=== PATIENT | female | born 1940 | race Caucasian/White ===

== ENCOUNTER → 2016-03-17 | Outpatient (CLI) | payer OTHER, BC ==
[2016-03-17 13:21] LABS: INR 1.2 (0.9-1.1); PARTIAL THROMBOPLASTIN RATIO 1.3; PROTHROMBIN TIME (PATIENT) 12.6 SECONDS (9.0-12.0)
[2016-03-17 13:24] LABS: BASO ABS # 0.82 K/uL (0-0.2); BASOPHIL % 5.2 %; COMPLETE YES; HEMATOCRIT 34.3 % (37-47); LYMPH ABS # 1.22 K/uL (1.2-3.4); LYMPHOCYTE % 7.8 %; MEAN CORPUSCULAR HEMOGLOBIN 31.2 pg (25-34); MEAN CORPUSCULAR HGB CONC 33.2 g/dl (32-36); MEAN PLATELET VOLUME 9.8 fL (7.4-10.4); NEUTROPHILS % 84.4 %; PLATELET COUNT 985 K/uL (130-400); PLT ESTIMATE INCREASED; RED BLOOD COUNT 3.65 M/uL (4.2-5.4); WHITE BLOOD COUNT 15.69 K/uL (4.8-10.8)
== END | disposition home or self-care (01) ==
LOC: C.LABMFLN 09:10
PROVIDERS: ATTEND Family Medicine
DX: C93.10 Chronic myelomonocytic leukemia not having achieved remission (principal); I48.0 Paroxysmal atrial fibrillation; S00.83XD Contusion of other part of head, subsequent encounter; X58.XXXD Exposure to other specified factors, subsequent encounter

== ENCOUNTER → 2016-12-15 | Outpatient (CLI) | payer OTHER, BC ==
[2016-12-15 13:48] LABS: CHOLESTEROL/HDL RATIO 2.5
[2016-12-15 14:26] LABS: ESTIMATED AVERAGE GLUCOSE 120 mg/dl; HA1C FLAG Normal (Normal)
== END | disposition home or self-care (01) ==
LOC: C.LABMFLN 09:35
PROVIDERS: ATTEND Family Medicine
DX: E78.01 Familial hypercholesterolemia (principal); R73.09 Other abnormal glucose; I42.9 Cardiomyopathy, unspecified; I10 Essential (primary) hypertension; D64.9 Anemia, unspecified; E53.8 Deficiency of other specified B group vitamins

== ENCOUNTER → 2017-04-19 | Outpatient (CLI) | payer OTHER, BC ==
[~2017-04-19] MED LIST: ACET-1256 PO; ATOR10TA82 PO; CYAN500S5 SL; DILT-119 PO; EDOX1TAB2 PO; FRS/40 PO; METO200T32 PO; POLYSOL4 OP; POTA10CA28 PO; [UNRECOGNIZED DRUG - CODE] PO
[2017-04-19 17:56] LABS: BASO % 0.2 %; BASO ABS # 0.02 K/uL (0-0.2); EOS % 0.9 %; EOS ABS # 0.11 K/uL (0-0.5); HEMATOCRIT 33.7 % (37-47); HEMOGLOBIN 10.6 g/dL (12.0-16.0); IG# 0.02 K/uL (0.00-0.02); LYMPH % 7.9 %; LYMPH ABS # 0.92 K/uL (1.2-3.4); MEAN CORPUSCULAR HEMOGLOBIN 27.7 pg (25-34); MEAN CORPUSCULAR HGB CONC 31.5 g/dl (32-36); MEAN PLATELET VOLUME 11.4 fL (7.4-10.4); MONO % 9.6 %; MONO ABS # 1.11 K/uL (0.11-0.59); NEUT % 81.2 %; NEUT ABS # 9.41 K/uL (1.4-6.5); PLATELET COUNT 268 K/uL (130-400); RED CELL DISTRIBUTION WIDTH SD 51.1 fL (36.4-46.3); WHITE BLOOD COUNT 11.59 K/uL (4.8-10.8)
[2017-04-19 19:05] LABS: BLOOD UREA NITROGEN 32 mg/dl (7-18); CARBON DIOXIDE 24 mmol/L (21-32); CREATININE 1.61 mg/dl (0.60-1.20); GLUCOSE 111 mg/dl (70-99); POTASSIUM 4.6 mmol/L (3.5-5.1); SODIUM 141 mmol/L (136-145)
[2017-04-19 19:10] LABS: TRANSFERRIN 232 mg/dl (200-360)
== END | disposition home or self-care (01) ==
LOC: C.LABMFLN 15:43
PROVIDERS: ATTEND Family Medicine
DX: I10 Essential (primary) hypertension (principal); C93.10 Chronic myelomonocytic leukemia not having achieved remission; R06.09 Other forms of dyspnea; I48.91 Unspecified atrial fibrillation; E53.8 Deficiency of other specified B group vitamins

== ENCOUNTER 2017-04-24 11:43 | Inpatient (IN) | payer OTHER, BC ==
[~2017-04-24] VITALS: Ht 154.9 cm; Wt 91.9 kg
--- NOTE | 2017-04-24 12:19 | EMERGENCY ROOM VISIT NOTE ---
History Report prepared by Abdirahman: Sandor Flores Under the Supervision of: Dr. Alberto Bell M.D. First contact with patient: 12:04 Chief Complaint: SHORTNESS OF BREATH Stated Complaint: AFIB/ SOB Nursing Triage Summary: Pt presents with and daughter who report pt has been in a fib x 4 weeks. Scheduled for cardioversion with Dr. Baltazar on Mon. Denies dizziness/lightheaded or cp. Pt reports SOB. Pt seen at [facility] last week. states pt had a "pulmonary test" on . Pt reports "a little bit" of cough of yellow. History of Present Illness The patient is a 76 year old female who presents to the Emergency Room with complaints of worsening shortness of breath this past week. Per the patient's daughter and , the patient was diagnosed with atrial fibrillation 2 years ago, but has been in it again for the past month. The patient was hospitalized in the [facility] recently, and was there for a week. She was discharged over a week ago, and the patient was on oxygen there. She was also on a Diltiazem drip there as well as a BiPAP. The patient was noted to be okay when she left, but over the past week, her shortness of breath has been steadily worsening. Yesterday, she was even short of breath with just sitting, but when the patient is laying down, her breathing is okay. The patient has not been moving much ever since she has been home. She was seen by her band lining bander (Dr. Mckenzie) a few days after being discharged, and was scheduled for a cardioversion for 2 days from now. The patient states that her breathing has gotten to the point where she needed to come here even before the cardioversion. She adds that she has CML, but has no heart failure related to that. The patient denies any chest pain, abdominal pain, cough, congestion, fevers, chills, body aches, urinary symptoms, or dizziness. She notes that she has not had any notable palpitations. She notes that she was recently put on a blood thinner. The patient has no history of heart attacks or blood clots in her legs or lungs. Per the patient's daughter, the patient's kidney function "was being questioned" while she was in the [facility]. Source of History: patient, family Onset: This past week Position: other (global) Symptom Intensity: got to the point where could not wait for cardioversion Quality: other (shortness of breath) Timing: worsening Modifying Factors (Worsening): exertion Modifying Factors (Relieving): rest Associated Symptoms: No fevers, No cough (or congestion), No chest pain, No abdominal pain, No urinary symptoms Note: Associated symptoms: Denies dizziness or body aches. Review of Systems See HPI for pertinent positives and negatives. A total of ten systems were reviewed and were otherwise negative. Past Medical & Surgical Medical Problems: (1) Acute Diastolic CHF (2) Afib (3) Atrial Fibrillation (4) CML (chronic myelocytic leukemia) Family History Family history omitted secondary to patient's advanced age. Social History Smoking Status: Never Smoker Alcohol Use: none Marital Status: Housing Status: lives with family Occupation Status: retired Current/Historical Medications Scheduled Acetaminophen (Tylenol), 1,000 MG PO AMHS Atorvastatin (Lipitor), 10 MG PO QPM Bosutinib (Bosulif), 300 MG PO HS Cyanocobalamin (Vitamin B-12), 500 MCG SL DAILY Diltiazem Hcl Ext Rel (Tiazac), 360 MG PO QAM Edoxaban Tosylate (Savaysa), 30 MG PO DAILY@1800 Furosemide (Lasix), 40 MG PO QAM Metoprolol Succinate (Toprolxl (Toprol-Xl), 200 MG PO QAM Polyethylene Glycol-Propylene (Systane), 1 DROPS OP DAILY Potassium Chloride (Micro-K Ext Rel), 10 MEQ PO QAM Allergies Coded Allergies: No Known Allergies (Unverified , 04/24/17) Physical Exam Vital Signs Date Time Temp Pulse Resp B/P (MAP) Pulse Ox O2 Delivery O2 Flow Rate FiO2 04/24/17 14:54 67 16 132/78 96 Nasal Cannula 3.0 04/24/17 13:06 72 04/24/17 12:08 93 Room Air 04/24/17 12:00 36.3 89 20 135/78 96 Room Air Physical Exam GENERAL: Awake, alert, uncomfortable-appearing, mildly dyspneic, no acute distress. HENT: Normocephalic, atraumatic. Dry mucous membranes. EYES: Normal conjunctiva. Sclera non-icteric. NECK: Supple. No nuchal rigidity. FROM. No JVD. RESPIRATORY: Diminished breath sounds at the bases, otherwise clear. CARDIAC: Regular rate, normal rhythm. Extremities warm and well perfused. Pulses equal. ABDOMEN: Obese abdomen, soft. No tenderness to palpation. No rebound or guarding. No masses. RECTAL: Deferred. MUSCULOSKELETAL: Chest examination reveals no tenderness. The back is symmetrical on inspection without obvious abnormality. There is no CVA tenderness to palpation. No joint edema. LOWER EXTREMITIES: Calves are equal size bilaterally and non-tender. Scant lower extremity edema. No discoloration. NEURO: Normal sensorium. No sensory or motor deficits noted. SKIN: No rash or jaundice noted. Medical Decision & Procedures ER Provider Diagnostic Interpretation: X-ray: Per my interpretation, radiologist review. CHEST ONE VIEW PORTABLE CLINICAL HISTORY: 76 years-old Female presenting with CHEST PAIN. TECHNIQUE: Portable upright AP view of the chest was obtained. COMPARISON: None. FINDINGS: Atherosclerosis of aortic arch. Cardiac silhouette enlarged. Left basilar opacity with small to moderate left pleural effusion. No pneumothorax. Small right pleural effusion. Osseous structures normal. Upper abdomen normal. IMPRESSION: 1. Cardiomegaly. No yinka pulmonary edema. 2. Left basilar opacity likely extensive atelectasis in the setting of small to moderate left pleural effusion. Underlying infection cannot be excluded. 3. Small right pleural effusion. Electronically signed by: Viral Villalta M.D. 04/24/2017 12:55 PM Dictated Date/Time: 04/24/2017 12:54 PM CHEST 2 VIEWS ROUTINE CLINICAL HISTORY: 76 years-old Female presenting with dyspnea. TECHNIQUE: PA and lateral views of the chest were obtained. COMPARISON: 04/24/2017 at 12:40 PM. FINDINGS: Atherosclerosis of aortic arch. Cardiac silhouette enlarged. Bibasilar opacities greater on the left. Small right and small to moderate left pleural effusions. No pneumothorax. Osseous structures normal. Upper abdomen normal. IMPRESSION: 1. Persistent small right and [id number] left pleural effusions with extensive basilar atelectasis greater on the left. 2. Cardiomegaly. Electronically signed by: Viral Villalta M.D. 04/24/2017 2:49 PM Dictated Date/Time: 04/24/2017 2:45 PM Laboratory Results 04/24/17 12:15 Red Blood Count 3.87, Mean Corpuscular Volume 89.4, Mean Corpuscular Hemoglobin 27.6, Mean Corpuscular Hemoglobin Concent 30.9, Mean Platelet Volume 10.6, Neutrophils (%) (Auto) 85.1, Lymphocytes (%) (Auto) 6.2, Monocytes (%) (Auto) 7.8, Eosinophils (%) (Auto) 0.6, Basophils (%) (Auto) 0.1, Neutrophils # (Auto) 10.77, Lymphocytes # (Auto) 0.79, Monocytes # (Auto) 0.99, Eosinophils # (Auto) 0.07, Basophils # (Auto) 0.01 04/24/17 12:15 Test 04/24/17 12:15 04/24/17 13:01 White Blood Count 12.65 K/uL (4.8-10.8) Red Blood Count 3.87 M/uL (4.2-5.4) Hemoglobin 10.7 g/dL (12.0-16.0) Hematocrit 34.6 % (37-47) Mean Corpuscular Volume 89.4 fL (80-100) Mean Corpuscular Hemoglobin 27.6 pg (25-34) Mean Corpuscular Hemoglobin Concent 30.9 g/dl (32-36) Platelet Count 274 K/uL (130-400) Mean Platelet Volume 10.6 fL (7.4-10.4) Neutrophils (%) (Auto) 85.1 % Lymphocytes (%) (Auto) 6.2 % Monocytes (%) (Auto) 7.8 % Eosinophils (%) (Auto) 0.6 % Basophils (%) (Auto) 0.1 % Neutrophils # (Auto) 10.77 K/uL (1.4-6.5) Lymphocytes # (Auto) 0.79 K/uL (1.2-3.4) Monocytes # (Auto) 0.99 K/uL (0.11-0.59) Eosinophils # (Auto) 0.07 K/uL (0-0.5) Basophils # (Auto) 0.01 K/uL (0-0.2) RDW Standard Deviation 53.1 fL (36.4-46.3) RDW Coefficient of Variation 16.2 % (11.5-14.5) Immature Granulocyte % (Auto) 0.2 % Immature Granulocyte # (Auto) 0.02 K/uL (0.00-0.02) Prothrombin Time 11.7 SECONDS (9.0-12.0) Prothromb Time International Ratio 1.1 (0.9-1.1) Anion Gap 7.0 mmol/L (3-11) Est Creatinine Clear Calc Drug Dose 34.6 ml/min Estimated GFR () 41.9 Estimated GFR (Non- 36.2 BUN/Creatinine Ratio 17.0 (10-20) Calcium Level 9.0 mg/dl (8.5-10.1) Total Bilirubin 0.3 mg/dl (0.2-1) Direct Bilirubin 0.1 mg/dl (0-0.2) Aspartate Amino Transf (AST/SGOT) 17 U/L (15-37) Alanine Aminotransferase (ALT/SGPT) 27 U/L (12-78) Alkaline Phosphatase 127 U/L (45-117) Pro-B-Type Natriuretic Peptide 1635 pg/ml (0-1800) Total Protein 7.5 gm/dl (6.4-8.2) Albumin 3.5 gm/dl (3.4-5.0) Lipase 138 U/L (73-393) Procalcitonin < 0.05 ng/ml (0-0.5) Venous Blood pH 7.41 (7.36-7.41) Venous Blood Partial Pressure CO2 42 mmHg (38.0-50.0) Venous Blood Partial Pressure O2 48 mmHg Venous Blood HCO3 26 mmol/L Venous Blood Oxygen Saturation 81.7 % Venous Blood Base Excess 1.2 mEq/L Laboratory results reviewed by me ECG Per My Interpretation Indication: SOB/dyspnea Rate (beats per minute): 112 Rhythm: atrial fibrillation (with RVR) Findings: LBBB, no acute ischemic change, other (no Sgarbossa's criteria) Comparison ECG Date: no prior available ED Course 1206: The patient was evaluated in room C7. A complete history and physical exam was performed. 1232: I did an bedside ultrasound on the patient, which revealed mild to moderate non-circumferential pericardial effusion collecting inferiorly with no diastolic ventricular collapse. Normal to mildly reduced EF. 1400: Upon reexamination, the patient was resting. I discussed the test results and treatment plan with her. She expressed understanding and agreement with the treatment plan. The patient will be evaluated for further management. 1406: I discussed the patient with Dr. Rubio - [facility] hospitalist - he will evaluate the patient for further treatment. 1409: I discussed the patient with Dr. Noriega - [facility] cardiology - he agrees that given no tamponade physiology and stable vital signs, no need for emergent echo at this time. Medical Decision I reviewed the patient's past medical history, medications, and the nursing notes as described above. Differential diagnosis: Etiologies such as infections, reactive airway disease, pneumonia, pneumothorax , COPD, CHF, cardiac ischemia, pulmonary embolism, musculoskeletal, gastrointestinal, as well as others were entertained. The patient is a 76-year-old woman with a past medical history of CLL on Bosutinib and atrial fibrillation currently on Edoxaban (switched from Xarelto) who presents emergency department with persistent worsening dyspnea after being admitted to the hospital for A. fib with RVR now scheduled ablation on Wednesday with Dr. Mckenzie. On arrival the patient is uncomfortable mildly dyspneic but no acute distress, afebrile with stable vital signs. EKG demonstrates left bundle branch block with A. fib with a rate of 112. No acute ischemia, i.e. no Sgarbossa criteria. No prior EKGs for comparison. WBC is 12 slightly elevated from 10 upon the patient's discharge. Troponin negative. BNP 1600s. Chest x- ray with bilateral pleural effusions. PA lateral ordered and pending as well as procalcitonin to further characterize the possibility of pneumonia. Bedside echo demonstrates a mild pericardial effusion that is not circumferential, collects apically. There is no diastolic ventricular collapse. Upon review of the patient's [facility] discharge summary this appears possibly to be similar, which describes her echo as no significant pericardial effusion. Given the patient's otherwise stable objective findings at this time there is unclear etiology to the patient's significant dyspnea. Possibly multifactorial related to the patient's A. fib which is rate controlled, her diastolic heart failure, her CML and likely associated pericardial effusion. Thus, will admit the patient for further management. Case was discussed with Dr. Rubio, [facility] hospitalist to admit the patient for further management. I additionally discussed the case with Dr. Ruiz, cardiology on behalf of admitting team who agrees that given there is no tamponade physiology, the patient is hemodynamically stable there is no indication for emergent formal echo at this time. Dr. Rubio was updated. *Review of the patient's [facility] discharge summary documents that the patient was admitted for atrial fibrillation with RVR on a diltiazem drip. She was followed by cardiology and oncology for her CML and she was continued on her Bosutinib. Her ejection fraction was 52% on her echo and also demonstrated grade 2 diastolic dysfunction. She was started on Xarelto given her chads vascular 5. Her Lasix was resumed upon discharge after her creatinine improved from 1.8-1.5. Medication Reconcilliation Current Medication List: was personally reviewed by me Blood Pressure Screening Patient's blood pressure: Normal blood pressure Consults Time Called: 1400 Consulting Physician: Dr. Joanne SHAW hospitalist Returned Call: 1406 I discussed the patient with Dr. Joanne SHAW hospitalist - he will evaluate the patient for further treatment. Additional Consults: Time Called: 1406 Consulted Physician: Dr. Leann Boland [facility] cardiology Returned Call: [phone] Additional Comments: I discussed the patient with Dr. Leann Cheney [facility] cardiology - he agrees that given no tamponade physiology and stable vital signs, no need for emergent echo at this time. Impression Primary Impression: Dyspnea Additional Impressions: Pericardial effusion CKD (chronic kidney disease) Atrial Fibrillation Scribe Attestation The scribe's documentation has been prepared under my direction and personally reviewed by me in its entirety. I confirm that the note above accurately reflects all work, treatment, procedures, and medical decision making performed by me. Departure Information Dispostion Being Evaluated By Hospitalist Referrals Lopez Dahl M.D. (PCP) Patient Instructions My [facility] Problem Qualifiers Primary Impression: Dyspnea Dyspnea type: dyspnea on exertion Qualified Codes: R06.09 - Other forms of dyspnea Additional Impressions: CKD (chronic kidney disease) Chronic kidney disease stage: unspecified stage Qualified Codes: N18.9 - Chronic kidney disease, unspecified
[2017-04-24 12:27] LABS: BASO % 0.1 %; BASO ABS # 0.01 K/uL (0-0.2); EOS % 0.6 %; EOS ABS # 0.07 K/uL (0-0.5); HEMATOCRIT 34.6 % (37-47); HEMOGLOBIN 10.7 g/dL (12.0-16.0); IG# 0.02 K/uL (0.00-0.02); LYMPH % 6.2 %; LYMPH ABS # 0.79 K/uL (1.2-3.4); MEAN CELL VOLUME 89.4 fL (80-100); MEAN CORPUSCULAR HEMOGLOBIN 27.6 pg (25-34); MEAN CORPUSCULAR HGB CONC 30.9 g/dl (32-36); MEAN PLATELET VOLUME 10.6 fL (7.4-10.4); MONO % 7.8 %; MONO ABS # 0.99 K/uL (0.11-0.59); NEUT % 85.1 %; NEUT ABS # 10.77 K/uL (1.4-6.5); PLATELET COUNT 274 K/uL (130-400); RED CELL DISTRIBUTION WIDTH CV 16.2 % (11.5-14.5); RED CELL DISTRIBUTION WIDTH SD 53.1 fL (36.4-46.3); WHITE BLOOD COUNT 12.65 K/uL (4.8-10.8)
[2017-04-24 12:35] LABS: INR 1.1 (0.9-1.1)
[2017-04-24] MEDS ORDERED: EDOX1TAB2 PO (12:37)
[2017-04-24] MEDS ORDERED: [UNRECOGNIZED DRUG - CODE] PO (12:37)
[2017-04-24] MEDS ORDERED: ACET-1256 PO (12:37)
[2017-04-24] MEDS ORDERED: CYAN500S5 SL (12:37)
[2017-04-24] MEDS ORDERED: POLYSOL4 OP (12:37)
[2017-04-24] MEDS ORDERED: POTA10CA28 PO (12:37)
[2017-04-24] MEDS ORDERED: METO200T32 PO (12:37)
[2017-04-24] MEDS ORDERED: DILT-119 PO (12:37)
[2017-04-24] MEDS ORDERED: ATOR10TA82 PO (12:37)
[2017-04-24] MEDS ORDERED: FRS/40 PO (12:37)
--- NOTE | 2017-04-24 12:57 | DIAGNOSTIC IMAGING REPORT ---
CHEST ONE VIEW PORTABLE CLINICAL HISTORY: 76 years-old Female presenting with CHEST PAIN. TECHNIQUE: Portable upright AP view of the chest was obtained. COMPARISON: None. FINDINGS: Atherosclerosis of aortic arch. Cardiac silhouette enlarged. Left basilar opacity with small to moderate left pleural effusion. No pneumothorax. Small right pleural effusion. Osseous structures normal. Upper abdomen normal. IMPRESSION: 1. Cardiomegaly. No yinka pulmonary edema. 2. Left basilar opacity likely extensive atelectasis in the setting of small to moderate left pleural effusion. Underlying infection cannot be excluded. 3. Small right pleural effusion. Electronically signed by: Viral Villalta M.D. 04/24/2017 12:55 PM Dictated Date/Time: 04/24/2017 12:54 PM
[2017-04-24 13:01] LABS: ALBUMIN 3.5 gm/dl (3.4-5.0); CREATININE 1.4 mg/dl (0.60-1.20); POTASSIUM 4.3 mmol/L (3.5-5.1)
[2017-04-24 13:06] LABS: TOTAL PROTEIN 7.5 gm/dl (6.4-8.2)
--- NOTE | 2017-04-24 14:50 | DIAGNOSTIC IMAGING REPORT ---
CHEST 2 VIEWS ROUTINE CLINICAL HISTORY: 76 years-old Female presenting with dyspnea. TECHNIQUE: PA and lateral views of the chest were obtained. COMPARISON: 04/24/2017 at 12:40 PM. FINDINGS: Atherosclerosis of aortic arch. Cardiac silhouette enlarged. Bibasilar opacities greater on the left. Small right and small to moderate left pleural effusions. No pneumothorax. Osseous structures normal. Upper abdomen normal. IMPRESSION: 1. Persistent small right and [id number] left pleural effusions with extensive basilar atelectasis greater on the left. 2. Cardiomegaly. Electronically signed by: Viral Villalta M.D. 04/24/2017 2:49 PM Dictated Date/Time: 04/24/2017 2:45 PM
[2017-04-24] MEDS ORDERED: MAGNESIUM HYDROXIDE SUSP 30 ML UDC PO PRN (15:15)
[2017-04-24] MEDS ORDERED: ALUMINUM/MAGNESIUM/SIMETH (MAALOX MAX) 30 ML UDC PO PRN (15:15)
[2017-04-24] MEDS ORDERED: ACETAMINOPHEN 325 MG TAB PO PRN (15:15)
[2017-04-24] MEDS ORDERED: ONDANSETRON INJ 2 MG/ML 2 ML VIAL IV PRN (15:15)
[2017-04-24 15:50] VITALS: O2SAT 95; Ht 154.9 cm; Wt 91.9 kg
--- NOTE | 2017-04-24 15:57 | History and Physical ---
History & Physical Date & Time of Service: Apr 24, 2017 at 15:43 Chief Complaint: Afib/ Sob Primary Care Physician: Lopez Dahl M.D. History of Present Illness Source: patient, family Ms. 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 Patient was recently admitted to [facility] due to acute hypoxic respiratory failure from atrial fibrillation with RVR. She was discharged approximately 1 week ago and since reports progressively becoming more short of breath and fatigued. She reports significant dyspnea on exertion with even minimal activity. She has not been able to ambulate much at home due to this BURTON. She feels like she has at baseline respiratory dhillon while at rest. She denies orthopnea. During assessment, patient had more labored breathing with just leaning forward to auscultate her lungs. Patient was diagnosed with paroxysmal atrial fibrillation in 2015 and underwent successful cardioversion. She reports that she has been out of this rhythm until presentation to [place]. During admission she was successfully rate controlled with her chronic Toprol XL and the addition of diltiazem. However, she has not successfully converted out of atrial fibrillation. She had a follow-up appointment with Dr. Mckenzie who planned for cardioversion on April 26. During this [place] admission, she reports she required supplemental oxygen however was successfully weaned to room air and completed two-step but did not qualify her for home oxygen use. She was initially placed on Xarelto, however her PCP switch this to Savaysa 30 mg daily which she has been compliant with. She denies history of DVT/PE. She reports an associated cough that is largely nonproductive. She states that it is more irritative then anything. She denies fever/chills, body aches, rhinorrhea, sore throat, or sick contacts. She reports obtaining her flu vaccine this year. During her [place] admission, she was diuresed however there was limitations as her kidney function worsened. She is currently on her home dosing of Lasix 40 mg daily now that this has improved. Past Medical/Surgical History 1. CML 2. Paroxysmal Atrial Fibrillation 3. Chronic Anemia 4. Cardiomyopathy 2/2 Cancer Tx (Suspected) 5. Diastolic CHF 6. H/O Breast CA S/P Chemo/XRT/ and S/P Lumpectomy 7. HTN 8. HLD 9. S/P Appendectomy 10. S/P L Salpingectomy 11. S/P YONNY Family History Breast Cancer DAUGHTER, Lung Disease FATHER, Rheumatic Heart Disease MOTHER, Social History Smoking Status: Never Smoker Smokeless Tobacco Use: No Alcohol Use: socially Drug Use: none Marital Status: Housing status: lives with significant other Occupational Status: retired Allergies Coded Allergies: No Known Allergies (Unverified , 04/24/17) Home Medications Scheduled Acetaminophen (Tylenol), 1,000 MG PO AMHS Atorvastatin (Lipitor), 10 MG PO QPM Bosutinib (Bosulif), 300 MG PO HS Cyanocobalamin (Vitamin B-12), 500 MCG SL DAILY Diltiazem Hcl Ext Rel (Tiazac), 360 MG PO QAM Edoxaban Tosylate (Savaysa), 30 MG PO DAILY@1800 Furosemide (Lasix), 40 MG PO QAM Metoprolol Succinate (Toprolxl (Toprol-Xl), 200 MG PO QAM Polyethylene Glycol-Propylene (Systane), 1 DROPS OP DAILY Potassium Chloride (Micro-K Ext Rel), 10 MEQ PO QAM Review of Systems Constitutional: + weakness (generalized), + fatigue, No fever, No chills ENT: No nasal symptoms, No sore throat, No trouble swallowing Respiratory: + cough (weak - minimal), + dyspnea on exertion (with minimal movement), No sputum, No wheezing, No dyspnea at rest Cardiovascular: No chest pain Abdomen: No pain, No nausea, No vomiting, No diarrhea, No constipation Musculoskeletal: No swelling, No calf pain Genitourinary - Female: No dysuria Hematologic / Lymphatic: No abnormal bleeding/bruising Physical Exam Vital Signs Date Time Temp Pulse Resp B/P (MAP) Pulse Ox O2 Delivery O2 Flow Rate FiO2 04/24/17 14:54 67 16 132/78 96 Nasal Cannula 3.0 04/24/17 13:06 72 04/24/17 12:08 93 Room Air 04/24/17 12:00 36.3 89 20 135/78 96 Room Air General Appearance: WD/WN, + mild distress (with simple movement - more labored breathing) Head: normocephalic, atraumatic Eyes: sclerae normal ENT: hearing grossly normal, pharynx normal, + pertinent finding (oral mucosa moist) Neck: supple, no JVD, trachea midline Respiratory/Chest: + respiratory distress (with minimal movement such as leaning forward in bed to assess lungs), + pertinent finding (L lung moctezuma are diminished from bases to approx. mid-lung; R lung diminished at bases - no other adventitious sounds appreciated; generally poor air flow) Cardiovascular: + irregularly irregular Abdomen/GI: normal bowel sounds, non tender, soft Back: normal inspection Extremities/Musculoskelatal: no pedal edema Neurologic/Psych: alert, oriented x 3 Skin: normal color, warm/dry Diagnostics Laboratory Results Results Past 24 Hours Test 04/24/17 12:15 04/24/17 13:01 04/24/17 15:32 Range/Units White Blood Count 12.65 4.8-10.8 K/uL Red Blood Count 3.87 4.2-5.4 M/uL Hemoglobin 10.7 12.0-16.0 g/dL Hematocrit 34.6 37-47 % Mean Corpuscular Volume 89.4 80-100 fL Mean Corpuscular Hemoglobin 27.6 25-34 pg Mean Corpuscular Hemoglobin Concent 30.9 32-36 g/dl Platelet Count 274 130-400 K/uL Mean Platelet Volume 10.6 7.4-10.4 fL Neutrophils (%) (Auto) 85.1 % Lymphocytes (%) (Auto) 6.2 % Monocytes (%) (Auto) 7.8 % Eosinophils (%) (Auto) 0.6 % Basophils (%) (Auto) 0.1 % Neutrophils # (Auto) 10.77 1.4-6.5 K/uL Lymphocytes # (Auto) 0.79 1.2-3.4 K/uL Monocytes # (Auto) 0.99 0.11-0.59 K/uL Eosinophils # (Auto) 0.07 0-0.5 K/uL Basophils # (Auto) 0.01 0-0.2 K/uL RDW Standard Deviation 53.1 36.4-46.3 fL RDW Coefficient of Variation 16.2 11.5-14.5 % Immature Granulocyte % (Auto) 0.2 % Immature Granulocyte # (Auto) 0.02 0.00-0.02 K/uL Prothrombin Time 11.7 9.0-12.0 SECONDS Prothromb Time International Ratio 1.1 0.9-1.1 Sodium Level 143 136-145 mmol/L Potassium Level 4.3 3.5-5.1 mmol/L Chloride Level 112 98-107 mmol/L Carbon Dioxide Level 24 21-32 mmol/L Anion Gap 7.0 3-11 mmol/L Blood Urea Nitrogen 24 7-18 mg/dl Creatinine 1.40 0.60-1.20 mg/dl Est Creatinine Clear Calc Drug Dose 34.6 ml/min Estimated GFR () 41.9 Estimated GFR (Non- 36.2 BUN/Creatinine Ratio 17.0 10-20 Random Glucose 113 70-99 mg/dl Calcium Level 9.0 8.5-10.1 mg/dl Total Bilirubin 0.3 0.2-1 mg/dl Direct Bilirubin 0.1 0-0.2 mg/dl Aspartate Amino Transf (AST/SGOT) 17 15-37 U/L Alanine Aminotransferase (ALT/SGPT) 27 12-78 U/L Alkaline Phosphatase 127 45-117 U/L Troponin I 0.025 0-0.045 ng/ml Pro-B-Type Natriuretic Peptide 1635 0-1800 pg/ml Total Protein 7.5 6.4-8.2 gm/dl Albumin 3.5 3.4-5.0 gm/dl Lipase 138 73-393 U/L Venous Blood pH 7.41 7.36-7.41 Venous Blood Partial Pressure CO2 42 38.0-50.0 mmHg Venous Blood Partial Pressure O2 48 mmHg Venous Blood HCO3 26 mmol/L Venous Blood Oxygen Saturation 81.7 % Venous Blood Base Excess 1.2 mEq/L Diagnostic Radiology CHEST 2 VIEWS ROUTINE FINDINGS: Atherosclerosis of aortic arch. Cardiac silhouette enlarged. Bibasilar opacities greater on the left. Small right and small to moderate left pleural effusions. No pneumothorax. Osseous structures normal. Upper abdomen normal. IMPRESSION: 1. Persistent small right and [id number] left pleural effusions with extensive basilar atelectasis greater on the left. 2. Cardiomegaly. EKG Poor data quality, interpretation may be adversely affected Atrial fibrillation with rapid ventricular response Left bundle branch block Abnormal ECG No previous ECGs available Confirmed by YASH ARGUELLO MD ([id number]) on 04/24/2017 2:49:29 PM Impression Assessment and Plan Ms. 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 Mild Respiratory Distress: - Patient presents with mild respiratory distress with minimal movement - appears largely euvolemic but does carry a diagnosis of diastolic CHF -suspect patient does not tolerate being in atrial fibrillation even though she is rate controlled largely - While having patient lean forward to assess lung sounds monitor showed saturations ranging from 71-87% even with 3L NC on but resolved with resting back - will continue to assess - Patient did require BiPAP on [place] admission - no need for this currently but will continue to monitor - Consult cardiology - patient follows with Dr. Mckenzie who planned on outpatient cardioversion on 04/26 - appreciate recommendations Persistent Atrial Fibrillation: Rate Controlled - Admit to telemetry for rhythm monitoring and serial cardiac enzymes - Patient has chronic LBBB that appears to have occurred between 2005 and March 2017 upon review of previous EKGs - Patient has largely been rate controlled however did have moments of RVR - patient reports taking her diltiazem and Toprol-XL this morning - Diltiazem 360 mg daily and Toprol-XL 200 mg daily - Savaysa 30 mg daily - this is nonformulary and patient may use own medication which she brought in Pericardial Effusion without Evidence of Tamponade: - Bedside limited echocardiogram performed in the ED reveals a mild to moderate pericardial effusion -reviewed outpatient records which support this was found on [place] admission -patient is hemodynamically stable without signs of tamponade -we will continue to monitor - Obtain updated echocardiogram Chronic Diastolic CHF: Appears Euvolemic - Daily weights and I&O Mild-Moderate Pleural Effusion: - CXR showing mild to moderate left pleural effusion that may be too small for thoracentesis will obtain CT without contrast to further evaluate for loculation as well as any hidden consolidations given possible pneumonia due to recent hospitalization - Pro calcitonin is negative -pending CT will consider further treatment modalities CML: Follows with Dr. Wiggins - Bosulif 300 mg daily - may need to look into this medication for a cause of adverse cardiac/pulmonary manifestations? HLD: STABLE - Lipitor 10 mg daily DVT Prophylaxis: Savaysa CODE STATUS: DO NOT RESUSCITATE Disposition: Possible need for cardioversion as she seems intolerable to rhythm even with rate control Resuscitation Status VTE Prophylaxis Will order VTE Prophylaxis: Yes Social Service Consult Cancer Patient Under [place]
[2017-04-24 17:00] VITALS: BP 171/79; PULSE 78; TEMP 36.6; O2SAT 99
--- NOTE | 2017-04-24 17:09 | DIAGNOSTIC IMAGING REPORT ---
(CHEST) THORAX WITHOUT CLINICAL HISTORY: 76 years-old Female presenting with Further assess lung moctezuma - consolidations?. TECHNIQUE: Multidetector CT imaging of the chest was performed without the use of intravenous contrast. IV contrast: None. A dose lowering technique was used consistent with the principles of ALARA (as low as reasonably achievable). COMPARISON: Chest x-ray from earlier the same day. CT DOSE (mGy.cm): The estimated cumulative dose is 781.17 mGy.cm. FINDINGS: Training And Development Coordinator topogram: Unremarkable. On soft tissue windows, multiple hypodense nodules appear to arise from the right thyroid gland posteriorly and protrude exophytically in the right paratracheal region at the thoracic inlet. Extensive infiltration of the subcutaneous tissue along the left upper outer quadrant of the left breast. Inflammatory change extends posterior to the left pectoralis muscle. Skin thickening of the left breast noted more inferiorly. Focal atherosclerosis of the left axillary vasculature. No axillary, supraclavicular, or mediastinal lymphadenopathy. Evaluation of the hanny limited without intravenous contrast. Atherosclerosis of the aorta. Multichamber enlargement of the heart. Coronary artery, mitral annular, and aortic valve calcification. Small pericardial effusion. Moderate bilateral pleural effusions. Indeterminate 14 mm left adrenal nodule. On lung windows, extensive dependent consolidation and volume loss of the lower lobes, left greater than right. Reticular peripheral opacities in the left apex and to a lesser extent in the right apex. Mosaic attenuation could suggest small airways disease. Central airways patent. On bone windows, degenerative changes of the spine. IMPRESSION: 1. Moderate bilateral pleural effusions with bibasilar passive atelectasis. 2. Additionally, reticular peripheral opacities primarily in the left apex could represent post radiation change. 3. Extensive fat infiltration in the upper outer quadrant of the left breast. This could also represent post radiation change. Correlate with clinical history. 4. Indeterminate 14 mm left adrenal nodule. This could be evaluated on outpatient basis of clinically indicated. Electronically signed by: Viral Villalta M.D. 04/24/2017 5:08 PM Dictated Date/Time: 04/24/2017 5:03 PM
[2017-04-24 19:37] VITALS: BP 129/79; PULSE 87; TEMP 36.6; O2SAT 99
[2017-04-24] MEDS: BOSULIF PO SCH (20:26)
[2017-04-24] MEDS: ATORVASTATIN 10 MG TAB PO SCH (20:28)
[2017-04-24] MEDS: ACETAMINOPHEN 500 MG TAB PO SCH (20:28)
[2017-04-24] MEDS ORDERED: BOSULIF PO SCH (21:00)
[2017-04-24] MEDS ORDERED: RIVAROXABAN TAB 15 MG TAB PO ONE (22:00)
--- NOTE | 2017-04-24 22:04 | Progress Note ---
Progress Note Date of Service Apr 24, 2017. Progress Note contacted as the patient was unable to obtain her Savaysa, single dose of xarelto as she is in a fibb; renally dosed - plan to get her medication tomorrow from family
[2017-04-25] VITALS (7 sets, daily range): BP systolic 108–151; BP diastolic 67–85; PULSE 58–89; TEMP 36.3–37.2; O2SAT 92–98
[2017-04-25 07:16] LABS: HEMATOCRIT 31.4 % (37-47); HEMOGLOBIN 9.5 g/dL (12.0-16.0); MEAN CORPUSCULAR HEMOGLOBIN 27.2 pg (25-34); MEAN CORPUSCULAR HGB CONC 30.3 g/dl (32-36); MEAN PLATELET VOLUME 10.9 fL (7.4-10.4); PLATELET COUNT 251 K/uL (130-400); RED CELL DISTRIBUTION WIDTH CV 16.3 % (11.5-14.5); RED CELL DISTRIBUTION WIDTH SD 53.6 fL (36.4-46.3); WHITE BLOOD COUNT 11.12 K/uL (4.8-10.8)
[2017-04-25 07:53] LABS: CALCIUM 8.6 mg/dl (8.5-10.1); CREATININE 1.43 mg/dl (0.60-1.20); POTASSIUM 4.5 mmol/L (3.5-5.1)
[2017-04-25] MEDS: POTASSIUM CHLORIDE 10 MEQ TABCR PO SCH (08:32)
[2017-04-25] MEDS: METOPROLOL SUCC 50MG EXT REL TAB PO SCH (08:33)
[2017-04-25] MEDS: DILTIAZEM HCL (TIAzac) 180 MG CAPCR PO SCH (08:33)
[2017-04-25] MEDS: ACETAMINOPHEN 500 MG TAB PO SCH ×2 (08:34→20:41)
[2017-04-25] MEDS ORDERED: FUROSEMIDE 40 MG TAB PO SCH (09:00)
--- NOTE | 2017-04-25 11:31 | Hospitalist Progress Note ---
Hospitalist Progress Note Date of Service Apr 25, 2017. Subjective Pt evaluation today including: conversation w/ patient, physical exam, chart review, lab review, review of studies, review of inpatient medication list Patient seen and evaluated. No acute events overnight. Patient is laying in bed without any respiratory distress. Off supplemental O2. Continues to get dyspneic with exertion. Does appear somewhat improved as yesterday just leaning forward to listen to her lungs caused labored breathing. Remains in A Fib and remains rate controlled. Constitutional: No fever, No chills Respiratory: + cough, + dyspnea on exertion, No sputum, No dyspnea at rest Cardiovascular: No chest pain, No orthopnea Abdomen: No pain, No nausea, No vomiting, No diarrhea, No constipation Musculoskeletal: No calf pain Female : No dysuria Heme: No abnormal bleeding/bruising Skin: No rash Medications Current Inpatient Medications Medications (Trade) Dose Ordered Sig/Vesna Route Start Time Stop Time Status Last Admin Dose Admin Acetaminophen (Tylenol Tab) 650 mg Q4H PRN PO 04/24/17 15:15 05/24/17 15:14 Al Hydrox/Mg Hydrox/Simethicone (Maalox Max Susp) 15 ml Q4H PRN PO 04/24/17 15:15 05/24/17 15:14 Magnesium Hydroxide (Milk Of Magnesia Susp) 30 ml Q12H PRN PO 04/24/17 15:15 05/24/17 15:14 Ondansetron HCl (Zofran Inj) 4 mg Q6H PRN IV 04/24/17 15:15 05/24/17 15:14 Acetaminophen (Tylenol Tab) 1,000 mg AMHS PO 04/24/17 21:00 05/24/17 20:59 04/25/17 08:34 1,000 MG Atorvastatin Calcium (Lipitor Tab) 10 mg QPM PO 04/24/17 21:00 05/24/17 20:59 04/24/17 20:28 10 MG Diltiazem HCl (TIAzac CAP) 360 mg QAM PO 04/25/17 09:00 05/25/17 08:59 04/25/17 08:33 360 MG Furosemide (Lasix Tab) 40 mg QAM PO 04/25/17 09:00 05/25/17 08:59 04/25/17 08:32 40 MG Metoprolol Succinate (Toprol Xl Tab) 200 mg QAM PO 04/25/17 09:00 05/25/17 08:59 04/25/17 08:33 200 MG Potassium Chloride (Klor-Con M10) 10 meq QAM PO 04/25/17 09:00 05/25/17 08:59 04/25/17 08:32 10 MEQ Miscellaneous Information (Order Awaiting Action) 1 ea QS N/A 04/24/17 17:30 05/24/17 17:29 Non-Formulary Medication 3 ea HS PO 04/24/17 21:00 05/24/17 20:59 04/24/17 20:26 3 EA Objective Vital Signs Date Time Temp Pulse Resp B/P (MAP) Pulse Ox O2 Delivery O2 Flow Rate FiO2 04/25/17 08:07 36.7 89 20 127/71 (89) 94 Room Air 04/25/17 08:00 Room Air 04/25/17 04:00 36.3 70 18 129/85 (100) 98 Nasal Cannula 2.0 04/25/17 04:00 Nasal Cannula 3.0 04/25/17 00:12 37.0 73 17 108/71 (83) 97 Nasal Cannula 04/25/17 00:00 Nasal Cannula 3.0 04/24/17 20:00 Nasal Cannula 3.0 04/24/17 19:37 36.6 87 20 129/79 (96) 99 Nasal Cannula 4.0 04/24/17 17:00 36.6 78 24 171/79 (109) 99 Nasal Cannula 3.0 04/24/17 17:00 Nasal Cannula 3.0 04/24/17 16:47 71 18 109/68 95 04/24/17 16:21 71 18 109/68 95 Nasal Cannula 3.0 04/24/17 15:50 95 Nasal Cannula 3.0 04/24/17 14:54 67 16 132/78 96 Nasal Cannula 3.0 04/24/17 13:06 72 04/24/17 12:08 93 Room Air 04/24/17 12:00 36.3 89 20 135/78 96 Room Air Physical Exam General Appearance: WD/WN, no apparent distress Eyes: sclerae normal ENT: hearing grossly normal Neck: supple, no JVD, trachea midline Respiratory/Chest: no respiratory distress, no accessory muscle use, + pertinent finding (improved aeration compared to previous exam but diminished at bases) Cardiovascular: + irregularly irregular Abdomen: normal bowel sounds, non tender, soft Extremities: no calf tenderness Neurologic/Psychiatric: alert Skin: normal color, warm/dry Laboratory Results Last 24 Hours Test 04/24/17 12:15 04/24/17 13:01 04/24/17 17:50 04/25/17 00:31 White Blood Count 12.65 K/uL Red Blood Count 3.87 M/uL Hemoglobin 10.7 g/dL Hematocrit 34.6 % Mean Corpuscular Volume 89.4 fL Mean Corpuscular Hemoglobin 27.6 pg Mean Corpuscular Hemoglobin Concent 30.9 g/dl Platelet Count 274 K/uL Mean Platelet Volume 10.6 fL Neutrophils (%) (Auto) 85.1 % Lymphocytes (%) (Auto) 6.2 % Monocytes (%) (Auto) 7.8 % Eosinophils (%) (Auto) 0.6 % Basophils (%) (Auto) 0.1 % Neutrophils # (Auto) 10.77 K/uL Lymphocytes # (Auto) 0.79 K/uL Monocytes # (Auto) 0.99 K/uL Eosinophils # (Auto) 0.07 K/uL Basophils # (Auto) 0.01 K/uL RDW Standard Deviation 53.1 fL RDW Coefficient of Variation 16.2 % Immature Granulocyte % (Auto) 0.2 % Immature Granulocyte # (Auto) 0.02 K/uL Prothrombin Time 11.7 SECONDS Prothromb Time International Ratio 1.1 Sodium Level 143 mmol/L Potassium Level 4.3 mmol/L Chloride Level 112 mmol/L Carbon Dioxide Level 24 mmol/L Anion Gap 7.0 mmol/L Blood Urea Nitrogen 24 mg/dl Creatinine 1.40 mg/dl Est Creatinine Clear Calc Drug Dose 34.6 ml/min Estimated GFR () 41.9 Estimated GFR (Non- 36.2 BUN/Creatinine Ratio 17.0 Random Glucose 113 mg/dl Calcium Level 9.0 mg/dl Total Bilirubin 0.3 mg/dl Direct Bilirubin 0.1 mg/dl Aspartate Amino Transf (AST/SGOT) 17 U/L Alanine Aminotransferase (ALT/SGPT) 27 U/L Alkaline Phosphatase 127 U/L Troponin I 0.025 ng/ml 0.022 ng/ml 0.028 ng/ml Pro-B-Type Natriuretic Peptide 1635 pg/ml Total Protein 7.5 gm/dl Albumin 3.5 gm/dl Lipase 138 U/L Procalcitonin < 0.05 ng/ml Venous Blood pH 7.41 Venous Blood Partial Pressure CO2 42 mmHg Venous Blood Partial Pressure O2 48 mmHg Venous Blood HCO3 26 mmol/L Venous Blood Oxygen Saturation 81.7 % Venous Blood Base Excess 1.2 mEq/L Arterial Blood pH 7.41 Arterial Blood Partial Pressure CO2 41 mmHg Arterial Blood Partial Pressure O2 119 mm/Hg Arterial Blood HCO3 25 mmol/L Arterial Blood Oxygen Saturation 97.8 % Arterial Blood Base Excess 0.6 mEq/L Arterial Blood Gas Delivery 4% Jose Luis Test POS Test 04/25/17 06:39 White Blood Count 11.12 K/uL Red Blood Count 3.49 M/uL Hemoglobin 9.5 g/dL Hematocrit 31.4 % Mean Corpuscular Volume 90.0 fL Mean Corpuscular Hemoglobin 27.2 pg Mean Corpuscular Hemoglobin Concent 30.3 g/dl RDW Standard Deviation 53.6 fL RDW Coefficient of Variation 16.3 % Platelet Count 251 K/uL Mean Platelet Volume 10.9 fL Sodium Level 143 mmol/L Potassium Level 4.5 mmol/L Chloride Level 112 mmol/L Carbon Dioxide Level 26 mmol/L Anion Gap 5.0 mmol/L Blood Urea Nitrogen 28 mg/dl Creatinine 1.43 mg/dl Est Creatinine Clear Calc Drug Dose 33.7 ml/min Estimated GFR () 40.8 Estimated GFR (Non- 35.2 BUN/Creatinine Ratio 19.9 Random Glucose 105 mg/dl Calcium Level 8.6 mg/dl Assessment and Plan Ms. 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 Mild Respiratory Distress A Fib vs Pleural Effusions: RESOLVED AT REST - On RA at present time - no orthopnea - reporting significant BURTON - Consult cardiology - patient follows with Dr. Mckenzie who planned on outpatient cardioversion on 04/26 - appreciate recommendations Persistent Atrial Fibrillation: Rate Controlled - Patient has chronic LBBB that appears to have occurred between 2015 and March 2017 upon review of previous EKGs - Diltiazem 360 mg daily and Toprol-XL 200 mg daily - Savaysa 30 mg daily - this is nonformulary and patient may use own medication - family planning to bring this is - could use Xarelto if not obtained Pericardial Effusion without Evidence of Tamponade: - Obtain updated echocardiogram - however with cardioversion may defer as likely will have DONNY Chronic Diastolic CHF: Appears Euvolemic - Daily weights and I&O - Continue home dose Lasix 40 mg daily - continue to trend Cr as this is still slightly high but improved from [place] admission Mild-Moderate Pleural Effusion: - CT with moderate b/l effusions with associated atelectasis - if there is enough fluid may benefit from thoracentesis CML: Follows with Dr. Wiggins - Bosulif 300 mg daily - may need to look into this medication for a cause of adverse cardiac/pulmonary manifestations? HLD: STABLE - Lipitor 10 mg daily DVT Prophylaxis: Savaysa CODE STATUS: DO NOT RESUSCITATE Disposition: Possible need for cardioversion as she seems intolerable to rhythm even with rate control Continued [facility] stay due to: ambulation difficulties Discharge planning: home
[2017-04-25] MEDS ORDERED: FUROSEMIDE INJ 40 MG in SYRINGE 0 ML IV ONE (13:45)
--- NOTE | 2017-04-25 14:16 | CARDIOLOGY CONSULTATION ---
DATE OF CONSULTATION: 04/25/2017 RESIDENT CAREGIVER: Ata Noriega D.O., [facility] with her primary line appliance assembler being Dr. Bienvenido Mckenzie. REASON FOR CONSULTATION: Shortness of breath, dyspnea on exertion and atrial fibrillation. HISTORY OF PRESENT ILLNESS: This is a pleasant 76-year-old female with a history of paroxysmal atrial fibrillation, diastolic heart failure, chronic left bundle branch block, hypertension, hyperlipidemia and CML who previously was admitted to the [facility] with acute hypoxic respiratory failure from atrial fibrillation with a rapid ventricular response. She was discharged a little over a week ago, she saw Dr. Mckenzie in the office on Wednesday and a decision was made to proceed with cardioversion to try to restore sinus rhythm and her atrial kick, hopefully improving her level of dyspnea. She notes at home she has been short of breath with minimal amounts of activity. She feels increasing palpitations and yesterday she came to the hospital with progressive dyspnea. She does have lower extremity edema. She denies any abdominal distension. She believes her weight has been relatively stable. She does note that there has been an issue with her anticoagulation. She was originally on apixaban, she was then switched to Xarelto as there was some concern over interaction with her Bosulif medication for her CML and then she was switched to edoxaban. She notes with edoxaban, she has had dark stools since that occurred. She denies any bleeding that she is aware of, she has not coughed up any blood, she denies any easy bruising. During her [place] admission she was diuresed, but had worsening renal dysfunction. The rest of the review of system otherwise negative. ADDENDUM PAST MEDICAL HISTORY: 1. CML. 2. Paroxysmal atrial fibrillation. 3. Chronic anemia. 4. 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 5. Diastolic heart failure. 6. History of breast cancer status post chemotherapy and radiation, status post lumpectomy. 7. Hypertension. 8. Hyperlipidemia. 9. Status post appendectomy. 10. Status post total abdominal hysterectomy. FAMILY HISTORY: Daughter of breast cancer. Father of lung cancer. Mother had rheumatic heart disease. SOCIAL HISTORY: She is a lifetime nonsmoker. She socially drinks alcohol. She is . She lives with her . She is retired. ALLERGIES: No known drug allergies. MEDICATIONS: Reviewed in electronic medical record. PHYSICAL EXAMINATION: GENERAL: She is awake, alert, and oriented x3. She is short of breath, just talking in brief sentences. VITAL SIGNS: Her heart rate was 67, respirations 16, blood pressure 132/78 and she is 96% on 3 liters. HEENNT: 2+ carotid upstrokes. No evidence of carotid bruits. Jugular venous pressure did not appear elevated. His sclerae is anicteric. Her hearing is normal. LUNGS: Decreased breath sounds in the bases bilaterally. No rales, rhonchi or wheezing. HEART: Irregular rate and rhythm. There is a soft systolic ejection murmur at the right sternal border. ABDOMEN: Soft, nontender, and nondistended. Positive bowel sounds. EXTREMITIES: No clubbing, cyanosis or edema. PSYCHIATRIC: Affect appeared appropriate. LABORATORY STUDIES: White count 12.65, hemoglobin 10.7, and platelet count of 274. Sodium 143, potassium 4.3, BUN 24, and creatinine 1.4. AST and ALT are normal. ProBNP was 1635. Troponin was negative. CT of her chest upon admission, moderate bilateral pleural effusions, adrenal nodule, reticular peripheral opacities in the left apex and to a lesser extent in the right apex. IMPRESSIONS: 1. Progressive shortness of breath and dyspnea on exertion. 2. Paroxysmal atrial fibrillation. 3. Moderate bilateral pleural effusions. 4. Small pericardial effusion. 5. Chronic anticoagulation. 6. Possible heme positive. She notes new onset of dark stools with the change in her anticoagulation. As was discussed with Dr. Mckenzie on the day of the consultation by phone, we will delay her DONNY cardioversion until we make sure that she is heme negative. In addition, there is a concern that even with DONNY cardioversion, we may not be able to maintain sinus rhythm or with the size of her pleural effusions, sedating her will increase her risk of complications. She should remain on her anticoagulation. She likely will need higher doses of diuretics to improve her pleural effusions. We will have to closely monitor her underlying renal function. Her overall LV function remains preserved. She does have associated diastolic dysfunction. In addition to the discussion with Dr. Mckenzie in our discussion by phone, we also discussed consideration of pulmonary consultation. Dr. Mckenzie will return tomorrow. Thank you for allowing us to participate in his care. RAVINDER
[2017-04-25] MEDS: BOSULIF PO SCH (20:40)
[2017-04-25] MEDS: EDOXABAN TOSYLATE 30 MG TAB PO SCH (20:41)
[2017-04-25] MEDS: ATORVASTATIN 10 MG TAB PO SCH (20:41)
[2017-04-25] MEDS ORDERED: EDOXABAN TOSYLATE 30 MG TAB PO SCH (21:00)
[2017-04-26] VITALS (9 sets, daily range): BP systolic 122–157; BP diastolic 61–89; PULSE 59–87; TEMP 36.3–36.6; O2SAT 84–96
[2017-04-26 06:25] LABS: HEMATOCRIT 32.2 % (37-47); MEAN CELL VOLUME 88.2 fL (80-100); MEAN CORPUSCULAR HEMOGLOBIN 27.4 pg (25-34); MEAN CORPUSCULAR HGB CONC 31.1 g/dl (32-36); MEAN PLATELET VOLUME 11.1 fL (7.4-10.4); PLATELET COUNT 254 K/uL (130-400); RED CELL DISTRIBUTION WIDTH CV 16.1 % (11.5-14.5); WHITE BLOOD COUNT 14.31 K/uL (4.8-10.8)
[2017-04-26 06:53] LABS: CALCIUM 8.7 mg/dl (8.5-10.1); CREATININE 1.99 mg/dl (0.60-1.20); POTASSIUM 4.4 mmol/L (3.5-5.1)
--- NOTE | 2017-04-26 09:01 | Hospitalist Progress Note ---
Hospitalist Progress Note Date of Service Apr 26, 2017. Subjective Pt evaluation today including: conversation w/ patient, physical exam, chart review, lab review, review of studies, review of inpatient medication list Patient seen and evaluated. No acute events overnight. Reports BURTON is unchanged since admission. No SOB with rest. Holding off with cardioversion at this point. Oncology does not feel that the Bosulif is the overall problem. Oncology would like to keep this as the Bosulif is working in comparison to previous meds. Constitutional: No fever, No chills Respiratory: + dyspnea on exertion, No cough, No dyspnea at rest Cardiovascular: No chest pain, No orthopnea Abdomen: No pain, No nausea, No vomiting, No diarrhea, No constipation Musculoskeletal: No swelling, No calf pain Female : No dysuria Heme: No abnormal bleeding/bruising Skin: No rash Medications Current Inpatient Medications Medications (Trade) Dose Ordered Sig/[place] Route Start Time Stop Time Status Last Admin Dose Admin Acetaminophen (Tylenol Tab) 650 mg Q4H PRN PO 04/24/17 15:15 05/24/17 15:14 Al Hydrox/Mg Hydrox/Simethicone (Maalox Max Susp) 15 ml Q4H PRN PO 04/24/17 15:15 05/24/17 15:14 Magnesium Hydroxide (Milk Of Magnesia Susp) 30 ml Q12H PRN PO 04/24/17 15:15 05/24/17 15:14 Ondansetron HCl (Zofran Inj) 4 mg Q6H PRN IV 04/24/17 15:15 05/24/17 15:14 Acetaminophen (Tylenol Tab) 1,000 mg AMHS PO 04/24/17 21:00 05/24/17 20:59 04/26/17 10:14 1,000 MG Atorvastatin Calcium (Lipitor Tab) 10 mg QPM PO 04/24/17 21:00 05/24/17 20:59 04/25/17 20:41 10 MG Diltiazem HCl (TIAzac CAP) 360 mg QAM PO 04/25/17 09:00 05/25/17 08:59 04/26/17 10:13 360 MG Furosemide (Lasix Tab) 40 mg QAM PO 04/25/17 09:00 05/25/17 08:59 Future Hold 04/25/17 08:32 40 MG Metoprolol Succinate (Toprol Xl Tab) 200 mg QAM PO 04/25/17 09:00 05/25/17 08:59 04/26/17 10:13 200 MG Potassium Chloride (Klor-Con M10) 10 meq QAM PO 04/25/17 09:00 05/25/17 08:59 04/26/17 10:12 10 MEQ Edoxaban (Savaysa) 30 mg HS PO 04/25/17 21:00 05/25/17 20:59 04/25/17 20:41 30 MG Bosutinib (Bosulif) 300 mg HS PO 04/26/17 21:00 05/26/17 20:59 Objective Vital Signs Date Time Temp Pulse Resp B/P (MAP) Pulse Ox O2 Delivery O2 Flow Rate FiO2 04/26/17 07:46 36.4 77 16 122/82 (95) 94 Room Air 04/26/17 04:00 Room Air 04/26/17 03:00 36.6 63 17 157/80 (105) 92 Room Air 04/26/17 00:00 Room Air 04/25/17 23:05 36.6 77 17 151/67 (95) 92 Room Air 04/25/17 20:00 Room Air 04/25/17 19:27 36.3 68 20 146/84 (104) 93 Room Air 04/25/17 16:00 Room Air 04/25/17 15:23 36.6 58 24 121/79 (93) 94 Room Air 04/25/17 12:00 Room Air 04/25/17 11:53 37.2 68 18 115/77 (90) 95 Room Air Physical Exam General Appearance: WD/WN, no apparent distress ENT: hearing grossly normal Neck: supple, no JVD, trachea midline Respiratory/Chest: no respiratory distress, no accessory muscle use, + decreased breath sounds (bases b/l) Cardiovascular: + irregularly irregular Abdomen: normal bowel sounds, non tender, soft Extremities: no pedal edema Neurologic/Psychiatric: alert Skin: normal color Laboratory Results Last 24 Hours Test 04/25/17 19:38 04/26/17 05:19 Stool Occult Blood NEGATIVE White Blood Count 14.31 K/uL Red Blood Count 3.65 M/uL Hemoglobin 10.0 g/dL Hematocrit 32.2 % Mean Corpuscular Volume 88.2 fL Mean Corpuscular Hemoglobin 27.4 pg Mean Corpuscular Hemoglobin Concent 31.1 g/dl RDW Standard Deviation 52.0 fL RDW Coefficient of Variation 16.1 % Platelet Count 254 K/uL Mean Platelet Volume 11.1 fL Sodium Level 142 mmol/L Potassium Level 4.4 mmol/L Chloride Level 110 mmol/L Carbon Dioxide Level 25 mmol/L Anion Gap 6.0 mmol/L Blood Urea Nitrogen 37 mg/dl Creatinine 1.99 mg/dl Est Creatinine Clear Calc Drug Dose 24.2 ml/min Estimated GFR () 27.4 Estimated GFR (Non- 23.6 BUN/Creatinine Ratio 18.5 Random Glucose 101 mg/dl Calcium Level 8.7 mg/dl Assessment and Plan Ms. 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 Mild Respiratory Distress A Fib vs Pleural Effusions: RESOLVED AT REST ONLY PRESENT WITH EXERTION - Obtain records of recent PFTs for further analysis - Consultation for pulmonology - any recommendations from a dyspnea standpoint? Persistent Atrial Fibrillation: Rate Controlled - Patient has chronic LBBB that appears to have occurred between 2015 and March 2017 upon review of previous EKGs - Diltiazem 360 mg daily and Toprol-XL 200 mg daily - Savaysa 30 mg daily - this is nonformulary and patient may use own medication - Cardiology following - question Bosulif component - holding on cardioversion Pericardial Effusion without Evidence of Tamponade: - Echo - EF 50-55% with evidence of small pericardial effusion Chronic Diastolic CHF: Appears Euvolemic - Daily weights and I&O - Will hold Lasix at this time - did have a mild elevation in kidney function and will continue to monitor Mild-Moderate Pleural Effusion: - CT with moderate b/l effusions with associated atelectasis - Discussed with CT surgery on 04/25 as it does not appear that she has significant amounts for adequate thoracentesis at this time CML: Follows with Dr. Wiggins - Bosulif 300 mg daily - possibly could be a contributing cause of her BURTON and pleural effusions - Discussed with Dr. Wiggisn who initially expressed concern as this medication is truly helping her counts but did suggest to hold it a couple days and to assess. States that he will continue to monitor her counts but to see if this changes the acute picture. HLD: STABLE - Lipitor 10 mg daily DVT Prophylaxis: Arina CODE STATUS: DO NOT RESUSCITATE Disposition: D/C uncertain at this time - Appreciate recommendations from pulmonary - Likely obtain 2 step prior to D/C Continued [facility] stay due to: other (Dyspnea on ) Discharge planning: home
[2017-04-26] MEDS: POTASSIUM CHLORIDE 10 MEQ TABCR PO SCH (10:12)
[2017-04-26] MEDS: DILTIAZEM HCL (TIAzac) 180 MG CAPCR PO SCH (10:13)
[2017-04-26] MEDS: METOPROLOL SUCC 50MG EXT REL TAB PO SCH (10:13)
[2017-04-26] MEDS: ACETAMINOPHEN 500 MG TAB PO SCH ×2 (10:14→20:01)
--- NOTE | 2017-04-26 10:21 | CARDIOLOGY PROGRESS NOTE ---
DATE: 04/26/2017 TIME: 09:43 a.m. SUBJECTIVE: Ms. Samuels continues to feel dyspneic. She feels short of breath even with conversation and any movement in her bed. She denies chest pain, syncope, near syncope, palpitations or edema. During this hospitalization, she has been given diuretic. She has not had a significant diuresis, but her creatinine has worsened from 1.4-1.99 and her BUN has increased from 24-37. There was a concern for melena; however, her stool has been checked and it was heme negative. She believes that she may have missed 1 dose of anticoagulation; however, she did apparently receive Xarelto on 04/24/2017, which would mean that she may not have missed any doses of anticoagulation therapy. OBJECTIVE: VITAL SIGNS: Temperature 36.4 degrees, heart rate 77 beats per minute, respiratory rate 16, blood pressure 122/82 mmHg, and oxygen saturation 94% on room air. I's and O's negative 140 mL so far this hospitalization. Weight is 90.4 kg. No acute distress. She is alert, but does have some conversational dyspnea at times. NECK: No appreciable JVD. CARDIAC EXAM: No ventricular heave. Irregularly irregular. Normal S1 and S2. No audible murmurs, rubs or gallops. LUNGS: Decreased breath sounds especially at the bases, but otherwise clear. ABDOMEN: Soft, nontender, and nondistended. Normoactive bowel sounds. EXTREMITIES: Trace bilateral lower extremity edema. No cyanosis. PSYCHIATRIC: Affect appears appropriate. MEDICATIONS: Include Bosulif 300 mg at bedtime, Savaysa 30 mg at bedtime, Lasix she was given 40 mg IV as well as 40 mg p.o. daily, metoprolol succinate 200 mg daily, diltiazem 360 mg daily, Lipitor 10 mg daily, and potassium chloride [address] scan of the chest on 04/24/2017 report reviewed: Moderate bilateral pleural effusions with bibasilar passive atelectasis. Reticular peripheral opacities, primarily in the left apex could represent postradiation change per radiology. ECG personally reviewed this morning on 04/26/2017 demonstrating atrial fibrillation at 90 beats per minute with PVCs versus aberrant conduction. Telemetry personally reviewed. Atrial fibrillation with heart rate in the 80s currently. LABORATORY DATA: Sodium 142, potassium 4.4, BUN 37, and creatinine 1.99. ProBNP 1635. WBC 14.31, hemoglobin 10, and platelets 254. ABG pH 7.41, pCO2 of 41, and pO2 of 119. Oxygen saturation 98%. ASSESSMENT AND PLAN: 1. Atrial fibrillation: Her heart rate is adequately controlled. She has conversational dyspnea, but does not appear to be hypervolemic on exam. Would not expect a rate controlled atrial fibrillation as the cause of conversational dyspnea if not in heart failure. We discussed potential options of treating her atrial fibrillation. For now, continue rate control strategy. She was scheduled for DONNY and cardioversion; however, we discussed the fact that she may not have any symptomatic improvement. She has opted for now to continue rate control strategy with other options as below. 2. Dyspnea: She has significant dyspnea even with conversation. She does not appear to be in heart failure. In fact, the last 2 times that she has been hospitalized here and at [place], she has been given IV diuretic and her renal function worsened. She does not appear to be ____. Bosulif can cause dyspnea and pleural effusions. We discussed this and she would like to further investigate if there are other options to treat her chronic myeloid leukemia and see if her dyspnea improves. If not, could then attempt DONNY cardioversion to see if there is any symptomatic improvement as noted above. 3. Pericardial effusion: We will repeat echocardiogram to see if there is any significant change; however, she does not appear to be clinically in tamponade and she has had pericardial and pleural effusions as noted at her recent hospitalization in [place]. 4. Cardiomyopathy: She had a history of cardiomyopathy, but most recent LV systolic function was described as low normal. Her cardiomyopathy was nonischemic as she underwent cardiac catheterization in 2008 when she had an EF of 40% and had normal coronary arteries. 5. Pleural effusions: As per primary service. 6. Disposition: Cardiology will continue to follow. The patient care/plan of care has been discussed with Dr. Brenton Guerin of the primary hospitalist service.
[2017-04-26] MEDS ORDERED: PERFLUTREN LIPID MICROSPHERE (DEFINITY) IV ONE (10:58)
--- NOTE | 2017-04-26 12:30 | Clinical Documentation Query ---
CLINICAL DOCUMENTATION QUERY Dr. RUSSELL, In your clinical opinion is this patient being managed for: ( ) Acute kidney failure POA on CKD stage III ( x ) Not Agree ( ) Other explanation of clinical findings (Please Explain) ( ) Unable to determine (Please Define) ( ) Need to Discuss The medical record reflects the following clinical findings, treatment, and risk factors. Clinical Indicators: 76 yo female presenting with worsening dyspnea. Initial Cr 1.4 which has been trending up, currently Cr 1.99. Current GFR range is 30.5-36.2. Historical data only available from 2016 where baseline Cr was 0.77-0.94. Treatment: monitor PRP's, tele, cardiology consult, Risk Factors: A fib, IV lasix, chronic diastolic CHF, CML, HTN Please clarify and document your clinical opinion in the progress notes and discharge summary. Terms such as "probable", "suspected", "likely", "questionable", "possible", or "still to be ruled out" are acceptable. IF IN AGREEMENT, YOU MUST DOCUMENT ABOVE DIAGNOSTIC STATEMENT IN DAILY PROGRESS NOTES AND DISCHARGE SUMMARY. This document is not part of the patient's record. Thank You, Marlene De Oliveira, RN [phone]
--- NOTE | 2017-04-26 13:40 | ECHOCARDIOGRAM REPORT ---
*NOTICE TO RECEIVING LIBERTARIAN AGENCY This information is strictly Confidential and protected under [place] law. [place] law prohibits you from making any further disclosure of this information unless further disclosure is expressly permitted by the written consent of the person to whom it pertains or is authorized by law. A general authorization for the release of medical or other information is not sufficient for this purpose. Hospital accepts no responsibility if the information is made available to any other person, INCLUDING THE PATIENT. Interpretation Summary * Name: CHRISTIAN MARTIN Study Date: 04/26/2017 10:12 AM BP: 122/82 mmHg * Patient Location: C.2T\S\E215\S\1 HR: 119 * : 1940 (M/d/yyyy) Gender: Female Height: 61 in * Age: 76 yrs Ethnicity: CA Weight: 200 lb * Ordering Physician: Shay Mckenzie * Referring Physician: Self, Referred * Performed By: Ada Hall RCS * * Reason For Study: A-FIB * BSA: 1.9 m2 * -- Conclusions -- * Left ventricular systolic function is low normal. * No segmental left ventricular wall motion abnormalities are noted. * Ejection Fraction = 50-55%. * There is borderline concentric left ventricular hypertrophy. * There is mild tricuspid regurgitation. * Large left pleural effusion. Procedure Details * A complete two-dimensional transthoracic echocardiogram was performed (2D, M-mode, Doppler and color flow Doppler). * The study was technically difficult. * A contrast injection of Definity was performed to improve assessment of LV function. * Contrast was injected into an intravenous site in the left arm. * One vial of Definity ultrasound contrast was diluted in normal saline to a total volume of 10 ml. A total of '2' ml of solution was administered during imaging. * Lot # [id number] of Definity utilized for procedure. * Expiration date 1 APR 12. * The attending nurse who injected the contrast agent was AMY CANCHOLA. Left Ventricle * The left ventricle is grossly normal size. * There is borderline concentric left ventricular hypertrophy. * Left ventricular systolic function is low normal. * No segmental left ventricular wall motion abnormalities are noted. * Ejection Fraction = 50-55%. Right Ventricle * The right ventricle is grossly normal size. * The right ventricular systolic function is normal. Atria * The left atrium is moderately dilated. * The right atrium is mildly dilated. * There is no evidence of atrial septal defect, but resolution does not allow assessment for a patent foramen ovale. Mitral Valve * The mitral valve is grossly normal. * There is no mitral valve stenosis. * Evaluation of regurgitation is inadequate. Tricuspid Valve * The tricuspid valve is not well visualized, but is grossly normal. * No significant tricuspid stenosis. * There is mild tricuspid regurgitation. Aortic Valve * The aortic valve is tricuspid. The leaflet thickness if normal. There is no aortic stenosis, and no significant insufficiency. * The aortic valve opens well. * Aortic valve sclerosis mild, without significant aortic valvular stenosis. * There is no significant aortic regurgitation. Pulmonic Valve * The pulmonary valve is not well seen, but the Doppler examination is normal without significant regurgitation or stenosis. Great Vessels * The aortic root is normal size. * The pulmonary is not well visualized. Pericardium/Pleural * Small pericardial effusion. * Large left pleural effusion. Great Vessels * Dilated inferior vena cava with reduced collapsability with sniff indicates an elevated right atrial pressure of 15 mmHg MMode 2D Measurements and Calculations IVSd 1.5 cm IVSs 1.8 cm LVIDd 2.3 cm LVIDs 1.9 cm LVPWd 1.4 cm LVPWs 0.92 cm IVS/LVPW 1.1 FS 17.6 % EDV(Teich) 18.4 ml ESV(Teich) 11.2 ml EF(Teich) 38.8 % EDV(cubed) 12.4 ml ESV(cubed) 6.9 ml EF(cubed) 44.1 % % IVS thick 15.1 % % LVPW thick -32.40 % LV mass(C)d 107.3 grams LV mass(C)dI 56.8 grams/m\S\2 LV mass(C)s 74.9 grams LV mass(C)sI 39.6 grams/m\S\2 SV(Teich) 7.1 ml SI(Teich) 3.8 ml/m\S\2 SV(cubed) 5.4 ml SI(cubed) 2.9 ml/m\S\2 Ao root diam 3.0 cm Ao root area 7.1 cm\S\2 LA dimension 5.1 cm LA/Ao 1.7 LVOT diam 2.0 cm LVOT area 3.2 cm\S\2 Doppler Measurements and Calculations MV E max chon 125.1 cm/sec MV P1/2t max chon 145.5 cm/sec MV P1/2t 65.2 msec MVA(P1/2t) 3.4 cm\S\2 MV dec slope 654.0 cm/sec\S\2 MV dec time 0.17 sec Ao V2 max 124.2 cm/sec Ao max PG 6.2 mmHg Ao max PG (full) 2.3 mmHg VANDANA(V,A) 2.5 cm\S\2 VANDANA(V,D) 2.5 cm\S\2 LV V1 max PG 3.9 mmHg LV V1 max 98.1 cm/sec MR max chon 390.4 cm/sec MR max PG 60.9 mmHg PA V2 max 100.6 cm/sec PA max PG 4.0 mmHg TR max chon 287.3 cm/sec
--- NOTE | 2017-04-26 18:10 | Medical Consult ---
Consultation Date of Consultation: Apr 26, 2017. Attending Physician: Brenton Guerin D.O. History of Present Illness NAME: Mayra Samuels :1940 76-year-old female DIAGNOSIS: - Chronic myeloid leukemia (diagnosed in 2006). - History of left breast cancer diagnosed over 20 years back, S/P lumpectomy and adjuvant chemotherapy, S/P adjuvant radiation treatment, it was T2 N1 M0, stage IIB, S/P 5 years of tamoxifen. No evidence of recurrent disease noted since then. CURRENT TREATMENT: -Bosutinib (300 mg once a day-doses lower than standard is because of drug interaction with Cardizem) started on 09/15/2016. PREVIOUS TREATMENT: -Gleevec between January,-08/2008. She had a congestive heart failure with ejection fraction was around 32% at that time and so Gleevec was discontinued. - restarted Gleevec in May, at the lower dose (200 mg per day). While on Gleevec therapy at the lower does, earlier in February,, noticed to have significant rise in the platelet count around 1.2 million, received hydroxyurea for few months. Presently she is not on hydroxyurea. DIAGNOSTIC WORKUP: - Bone marrow evaluation done by the [facility] on 02/01/2007 showed moderate to marked granulopoiesis with myeloid hyperplasia consistent with the diagnosis of CML, cytogenetics positive for BCR-ABL gene rearrangement study. Her white cell count increased close to 100,000 before she was started on on Gleevec therapy in May of 2007, she could not afford the Gleevec therapy and so she received Gleevec through [facility] ([facility]), she was on 800 mg p.o. once-a-day and as per the patient in 3 weeks she had significant drop in the white blood cell count,, the dose of Gleevec was down to 400 mg once -a-day. She did quite well, she had a negative BCR-ABL gene rearrangement study in the peripheral blood in January of 2008. In 05/2008 she had a routine ophthalmologic evaluation by Dr. Nathan, she did not have any specific eye symptoms but as per the patient, she was told to have Gleevec induced some of the ophthalmologic changes (she had some visual field defect consistent with ischemic changes). In July of 2008 she had symptoms of congestive heart failure, her echocardiogram done at that time showed left ventricular ejection fraction of 32 %, BNP was increased to around 2500, she was evaluated by Dr. Sierra, she also had transient atrial fibrillation, she had coronary angiogram at [facility], as per the patient she did not have coronary disease and with the supportive treatment with diuretics, symptoms of congestive heart improved significantly. OTHER IMPORTANT HISTORY: - Echocardiogram showed normal left ventricular ejection fraction around 61% (2013). ~-BCR-ABL IS--> 53.2%~(09/07/2016). ~ -BCR-ABL1/ABL1 -->~27.035 (12/08/2016) INTERVAL HISTORY: Recently she was admitted at [facility] for increasing shortness of breath. -echocardiogram done on 04/12/2017 showed left ventricular ejection fraction is around 52%, mild left atrial enlargement noted. -bilateral lower extremity Doppler evaluation showed no evidence of DVT. - Worsening kidney function test noted with serum creatinine level increased on 1.9 mg/dL as of 04/14/2017. -Stable blood counts with a WBC count around 10,000, H&H of , Platelet count of 221,000 (04/15/2017) -Pro-BNP--> 1527 (04/12/2017) Now she is admitted at [facility] on 04/24/2017 for once again increasing shortness of breath, I saw her better, she is sitting in the bed but she is quite shortness of breath while even talking to me, she says that she feels shortness of breath when she walks around to the bathroom, no increasing chest pain, no fever, hemodynamically she stable, O2 saturation on room is around 95%. -CT scan of chest done 04/24/2017--> moderate bilateral pleural effusion, bibasilar atelectatic changes noted, post radiation changes in the left lung and left breast noted. Left renal gland nodule measuring 1.4 cm noted. - White blood cell count is on the higher side around 12,000-14,000, hemoglobin around 9.5-10 g/dL, normal platelet count around 250,000. -serum creatinine level has increased from 1.4--> 1.9 mg/dL. -troponin I wrote 0.02 -procalcitonin less than 0.05. -Pro-BNP--> 1635. Echocardiogram done on 04/26/2017--> left ventricular ejection fraction is around the 50-55%, borderline concentric LVH noted, mild tricuspid regurgitation, large left pleural effusion noted. She is on oral anticoagulant in the form of Edoxaben for underlying atrial fibrillation. Past medical and surgical history: -chronic myeloid leukemia as described above. -paroxysmal atrial fibrillation -breast cancer diagnosis as described above A -hypertension and hyperlipidemia -S/P appendectomy, YONNY and left salpingectomy. -renal insufficiency. Social history: Neck nonsmoker, denies any ETOH abuse, lives with her . Medications: Please review her chart for detailed list of medications. Review of systems: Generalized weakness, fatigue, no fever, no chills, no sore throat, mild bilateral leg edema present, cough with scanty white expectorant and shortness of breath on minimal exertion, no increasing chest pain or wheezing, no new abdominal symptoms. No increasing back pain or bone pain. No diarrhea, no constipation, no bleeding from any sites On exam: - Alert and oriented x3, well built woman, not in any distress. - HEENT: no icterus, no pallor, Throat: Normal. - Neck: No palpable cervical lymphadenopathy. - Abdomen: soft, nontender, no hepatomegaly, no splenomegaly. - No focal neuro deficit. - Extremities: no finger clubbing, mild bilateral leg edema present. ASSESSMENT AND PLAN: 76-year-old female, a case of chronic myeloid leukemia diagnosed initially in 2006, she received the Gleevec therapy but had congestive heart failure about 2 years after that and so Gleevec was on hold but then restarted the lower does in 2009, she had good hematological response but in early February, she had progressive rise in the platelet count, the highest platelet count was around 1.2 million, she received hydroxyurea for few months and then in August,, Gleevec therapy was discontinued started on Bosutinib, once again had a very good response (hematologically as well as drop in the BCR-ABL gene rearrangement by PCR) Recently she was admitted at [facility] for increasing shortness of breath, she has underlying cardiac arrhythmia, atrial fibrillation , now she is on oral anticoagulant, her weight is well under control, once again she is admitted for the similar symptoms, no significant changes noted in the echocardiogram done during this hospitalization. Bosutinib therapy can cause cardiac toxicity, she has atrial fibrillation, now has increasing pleural effusion, I would like to hold Bosutinib at this time. It is possible that in the next few weeks her white blood cell count as well as platelet count is likely to go up in the absence of Bosutinib therapy. She may require thoracocentesis if she continues to have increasing shortness of breath and worsening pleural effusion. Please call me with any questions on my cell phone at [phone]. Dr. Selvin Wiggins Hem/Onc Past Medical/Surgical History Medical Problems: (1) CKD (chronic kidney disease) Status: Acute (2) Dyspnea Status: Acute (3) Pericardial effusion Status: Acute Family History Breast Cancer DAUGHTER, Lung Disease FATHER, Rheumatic Heart Disease MOTHER, Social History Smoking Status: Never Smoker Smokeless Tobacco Use: No Alcohol Use: socially Drug Use: none Marital Status: Housing Status: lives with family Occupation Status: retired Allergies Coded Allergies: No Known Allergies (Unverified , 04/24/17) Current Inpatient Medications Current Inpatient Medications Medications (Trade) Dose Ordered Sig/Vesna Route Start Time Stop Time Status Last Admin Dose Admin Acetaminophen (Tylenol Tab) 650 mg Q4H PRN PO 04/24/17 15:15 05/24/17 15:14 Al Hydrox/Mg Hydrox/Simethicone (Maalox Max Susp) 15 ml Q4H PRN PO 04/24/17 15:15 05/24/17 15:14 Magnesium Hydroxide (Milk Of Magnesia Susp) 30 ml Q12H PRN PO 04/24/17 15:15 05/24/17 15:14 Ondansetron HCl (Zofran Inj) 4 mg Q6H PRN IV 04/24/17 15:15 05/24/17 15:14 Acetaminophen (Tylenol Tab) 1,000 mg AMHS PO 04/24/17 21:00 05/24/17 20:59 04/26/17 10:14 1,000 MG Atorvastatin Calcium (Lipitor Tab) 10 mg QPM PO 04/24/17 21:00 05/24/17 20:59 04/25/17 20:41 10 MG Diltiazem HCl (TIAzac CAP) 360 mg QAM PO 04/25/17 09:00 05/25/17 08:59 04/26/17 10:13 360 MG Furosemide (Lasix Tab) 40 mg QAM PO 04/25/17 09:00 05/25/17 08:59 Future Hold 04/25/17 08:32 40 MG Metoprolol Succinate (Toprol Xl Tab) 200 mg QAM PO 04/25/17 09:00 05/25/17 08:59 04/26/17 10:13 200 MG Potassium Chloride (Klor-Con M10) 10 meq QAM PO 04/25/17 09:00 05/25/17 08:59 04/26/17 10:12 10 MEQ Edoxaban (Savaysa) 30 mg HS PO 04/25/17 21:00 05/25/17 20:59 04/25/17 20:41 30 MG Bosutinib (Bosulif) 300 mg HS PO 04/26/17 21:00 05/26/17 20:59 Physical Exam Date Time Temp Pulse Resp B/P (MAP) Pulse Ox O2 Delivery O2 Flow Rate FiO2 04/26/17 16:00 95 Room Air 04/26/17 15:28 36.5 64 18 122/79 (93) 92 Room Air 04/26/17 12:00 96 Room Air 04/26/17 11:32 36.6 87 18 149/89 (109) 91 Room Air 04/26/17 08:00 95 Room Air 04/26/17 07:46 36.4 77 16 122/82 (95) 94 Room Air 04/26/17 04:00 Room Air 04/26/17 03:00 36.6 63 17 157/80 (105) 92 Room Air 04/26/17 00:00 Room Air 04/25/17 23:05 36.6 77 17 151/67 (95) 92 Room Air 04/25/17 20:00 Room Air 04/25/17 19:27 36.3 68 20 146/84 (104) 93 Room Air Laboratory Results Last 24 Hours Test 04/25/17 19:38 04/26/17 05:19 Stool Occult Blood NEGATIVE White Blood Count 14.31 K/uL Red Blood Count 3.65 M/uL Hemoglobin 10.0 g/dL Hematocrit 32.2 % Mean Corpuscular Volume 88.2 fL Mean Corpuscular Hemoglobin 27.4 pg Mean Corpuscular Hemoglobin Concent 31.1 g/dl RDW Standard Deviation 52.0 fL RDW Coefficient of Variation 16.1 % Platelet Count 254 K/uL Mean Platelet Volume 11.1 fL Sodium Level 142 mmol/L Potassium Level 4.4 mmol/L Chloride Level 110 mmol/L Carbon Dioxide Level 25 mmol/L Anion Gap 6.0 mmol/L Blood Urea Nitrogen 37 mg/dl Creatinine 1.99 mg/dl Est Creatinine Clear Calc Drug Dose 24.2 ml/min Estimated GFR () 27.4 Estimated GFR (Non- 23.6 BUN/Creatinine Ratio 18.5 Random Glucose 101 mg/dl Calcium Level 8.7 mg/dl
[2017-04-26] MEDS: ATORVASTATIN 10 MG TAB PO SCH (20:01)
[2017-04-26] MEDS: EDOXABAN TOSYLATE 30 MG TAB PO SCH (20:02)
[2017-04-26] MEDS ORDERED: BOSUTINIB 100 MG PO SCH (21:00)
[2017-04-27] VITALS (10 sets, daily range): BP systolic 117–166; BP diastolic 64–91; PULSE 61–85; TEMP 36.3–36.7; O2SAT 88–98
[2017-04-27 06:05] LABS: HEMATOCRIT 32.2 % (37-47); HEMOGLOBIN 10.2 g/dL (12.0-16.0); MEAN CELL VOLUME 88.5 fL (80-100); MEAN CORPUSCULAR HGB CONC 31.7 g/dl (32-36); MEAN PLATELET VOLUME 10.9 fL (7.4-10.4); PLATELET COUNT 257 K/uL (130-400); RED CELL DISTRIBUTION WIDTH CV 16.1 % (11.5-14.5); RED CELL DISTRIBUTION WIDTH SD 51.8 fL (36.4-46.3)
[2017-04-27 06:43] LABS: CREATININE 1.79 mg/dl (0.60-1.20); POTASSIUM 4.3 mmol/L (3.5-5.1)
[2017-04-27] MEDS: POTASSIUM CHLORIDE 10 MEQ TABCR PO SCH (08:18)
[2017-04-27] MEDS: ACETAMINOPHEN 500 MG TAB PO SCH ×2 (08:18→19:45)
[2017-04-27] MEDS: METOPROLOL SUCC 50MG EXT REL TAB PO SCH (08:18)
[2017-04-27] MEDS: DILTIAZEM HCL (TIAzac) 180 MG CAPCR PO SCH (08:19)
--- NOTE | 2017-04-27 09:18 | PULMONARY CONSULTATION ---
DATE OF CONSULTATION: 04/27/2017 TIME: 0800. REASON FOR CONSULT: Bilateral pleural effusion with infiltrate. HISTORY OF PRESENT ILLNESS: A 76-year-old white female with a past medical history of paroxysmal atrial fibrillation, cardiomyopathy, chronic diastolic heart failure, left bundle-branch block, hypertension and CML, on BOSULIF, presented to the Emergency Room on 04/24/2017 with progressive shortness of breath over 1 week but 4 weeks of feeling lassitude and weakness. She was recently admitted to [facility] due to acute hypoxic respiratory failure from atrial fibrillation with a rapid ventricular response and her outpatient primary care physician is Dr. Lopez Dahl and she sees Dr. Selvin Wiggins for her hematologic malignancy. She was discharged a week ago from that facility, but the fatigue and shortness of breath progressed. She denies pleuritic pain but there has been a blood tinge to sputum. She initially was diagnosed with paroxysmal atrial fibrillation in 2016 and underwent successful cardioversion. She was placed on Toprol-XL and Cardizem, but atrial fibrillation recurred and she remained in atrial fibrillation. Dr. Mckenzie had planned for cardioversion electively on 04/26/2017. She required O2 supplementation during the [place] admission and then was placed on Xarelto and then switched to Savaysa 30 mg daily. There is no history of pulmonary thromboembolic disease to her knowledge. She did receive a flu vaccine this year. Diuretics have been curtailed at times because of chronic renal insufficiency. She has a history of breast cancer, status post chemo/radiation and lumpectomy in the remote past and has had chronic anemia as well. EKG on admission showed atrial fibrillation with a rapid ventricular response and left bundle-branch block. Her saturations were between 71 and 87% on 3 liters during the [place] admission. Echo in the past had showed mild to moderate pericardial effusion. She was seen during this hospital stay by both Dr. Ata Noriega and Dr. Mckenzie. Initially, her anticoagulation consisted of apixaban and then switched to Xarelto, but there was concern about interaction with BOSULIF which is treatment for her CML, and then she was switched to edoxaban. She has demonstrated dark stools since the institution of the latter but no other bleeding except there has been some blood tinge in mucus. Current echo read by Dr. Eaton shows an LVEF of 50-55% with a small pericardial effusion and large left pleural effusion. The inferior vena cava shows reduced collapsibility suggesting right atrial pressure of [address] Wiggins saw the patient in consultation. He relates the patient has a history of left breast cancer 20 years ago, status post lumpectomy and adjuvant chemotherapy. She was staged at T2N1M0 or stage IIB and was on 5 years of tamoxifen without recurrence. The dose of bosutinib 300 mg daily which is lower because of drug interactions with Cardizem and she was started on that in 08/2016. She had been on Gleevec between 01/2007 to 2008, but because of her lowered ejection fraction, was discontinued and restarted at a lower dose in 05/2009. Her platelet count matt and so she was placed on hydroxyurea which was then discontinued. For details of the workup for her CML, I refer you to well-outlined notation. Serum creatinine has hovered around 1.9 and does deteriorate with increased diuresis. Details of past medical history, medications, family and social history, I refer you to current and past record. PHYSICAL EXAMINATION: GENERAL: Friendly well-developed elderly white female, appearing mildly dyspneic with speech but otherwise quite stable. VITAL SIGNS: Temperature 36.7, pulse 71, respiratory rate 20, blood pressure 152/91, O2 sat 98% on 2 liters. SKIN: Warm and dry. HEENT: Atraumatic, normocephalic. PERRLA, EOMI. Conjunctivae pale. Sclerae nonicteric. LUNGS: Dullness with decreased breath sounds at both bases, left greater than right. CARDIAC: Irregularly irregular rhythm with controlled ventricular response currently. I do not appreciate a gallop. ABDOMEN: Soft, protuberant. EXTREMITIES: Trace pedal edema. There is no clubbing or cyanosis. NEUROLOGIC: Intact. No lateralizing signs. OVERALL ASSESSMENT: A 76-year-old white female with a history of chronic diastolic heart failure, chronic atrial fibrillation with a rapid ventricular response, and chronic renal insufficiency, also with the diagnosis of chronic myelogenous leukemia. She has had a history of pericardial effusion but only a small one now and without tamponade physiology. Review of the CAT scan shows that the left pleural effusion far exceeds the right and there were also hypodense nodules involving the right thyroid gland that extend exophytically into the right paratracheal region at the thoracic inlet. IV contrast cannot be used, so evaluation of the hanny is limited. There is a 14 mm left adrenal nodule. There is also consolidation and volume loss involving the lower lobes, left greater than right, with reticular peripheral opacities in left apex. At this point in time, I think the effusion certainly on the left needs to be drained by thoracentesis. The patient will need the edoxaban held for at least 48 hours to my knowledge before it is safe to consider and proceed with thoracentesis. My suspicion is the patient has areas of consolidation, especially involving the left lower lobe that will need to be treated, pulmonary toilet, it is difficult to know with the white count of 11,000, whether this signifies infection, but I suspect it does, and therefore, I would place the patient on broad-spectrum antibiotic therapy along with aerosolized bronchodilator. We may simply be seeing compressive atelectasis from the effusion and the patient certainly will improve with drainage of that effusion safely. Analysis of the effusion will be critical but suspect it will be a transudate but that remains to be seen. We will follow along with you.
[2017-04-27 10:54] LABS: INR 1.1 (0.9-1.1); PTT PATIENT 34.5 SECONDS (21.0-31.0)
[2017-04-27] MEDS ORDERED: PIPERACILL/TAZOBAC CONSULT ACTIVE PRN (15:30)
[2017-04-27] MEDS ORDERED: VANCOMYCIN CONSULT ACTIVE PRN (15:30)
--- NOTE | 2017-04-27 15:34 | Progress Note ---
Subjective Date of Service: Apr 27, 2017. Subjective Pt evaluation today including: conversation w/ patient, physical exam, review of studies, conversation w/ executive consultant, review of inpatient medication list Pain: no pain PO Intake: adequate Voiding: no voiding problems still with dyspnea on exertion today appreciate consult from Dr. Wiggins, will hold Bosulif for now, see if dyspnea improves appreciate consult from Dr. Candelaria plan for thoracentesis tomorrow Problem List Medical Problems: (1) CKD (chronic kidney disease) Status: Acute (2) Dyspnea Status: Acute (3) Pericardial effusion Status: Acute Review of Systems Constitutional: + weakness, + fatigue Respiratory: + dyspnea on exertion All Other Systems: Reviewed and Negative Medications Current Inpatient Medications Medications (Trade) Dose Ordered Sig/Vesna Route Start Time Stop Time Status Last Admin Dose Admin Acetaminophen (Tylenol Tab) 650 mg Q4H PRN PO 04/24/17 15:15 05/24/17 15:14 Al Hydrox/Mg Hydrox/Simethicone (Maalox Max Susp) 15 ml Q4H PRN PO 04/24/17 15:15 05/24/17 15:14 Magnesium Hydroxide (Milk Of Magnesia Susp) 30 ml Q12H PRN PO 04/24/17 15:15 05/24/17 15:14 Ondansetron HCl (Zofran Inj) 4 mg Q6H PRN IV 04/24/17 15:15 05/24/17 15:14 Acetaminophen (Tylenol Tab) 1,000 mg AMHS PO 04/24/17 21:00 05/24/17 20:59 04/27/17 08:18 1,000 MG Atorvastatin Calcium (Lipitor Tab) 10 mg QPM PO 04/24/17 21:00 05/24/17 20:59 04/26/17 20:01 10 MG Diltiazem HCl (TIAzac CAP) 360 mg QAM PO 04/25/17 09:00 05/25/17 08:59 04/27/17 08:19 360 MG Furosemide (Lasix Tab) 40 mg QAM PO 04/25/17 09:00 05/25/17 08:59 Future Hold 04/25/17 08:32 40 MG Metoprolol Succinate (Toprol Xl Tab) 200 mg QAM PO 04/25/17 09:00 05/25/17 08:59 04/27/17 08:18 200 MG Potassium Chloride (Klor-Con M10) 10 meq QAM PO 04/25/17 09:00 05/25/17 08:59 04/27/17 08:18 10 MEQ Edoxaban (Savaysa) 30 mg HS PO 04/25/17 21:00 05/25/17 20:59 Future Hold 04/26/17 20:02 30 MG Objective Vital Signs Date Time Temp Pulse Resp B/P (MAP) Pulse Ox O2 Delivery O2 Flow Rate FiO2 04/27/17 15:14 36.5 61 22 120/71 (87) 93 Room Air 04/27/17 12:00 95 Nasal Cannula 2.0 04/27/17 11:43 36.5 65 20 117/75 (89) 96 Nasal Cannula 2.0 04/27/17 08:00 98 Nasal Cannula 2.0 04/27/17 07:44 36.7 71 20 152/91 (111) 98 Nasal Cannula 2.0 04/27/17 04:00 Nasal Cannula 2.0 04/27/17 03:53 135/82 (99) 94 Nasal Cannula 2.0 04/27/17 03:50 36.3 72 22 157/79 (105) 88 Room Air 04/27/17 00:00 Nasal Cannula 2.0 04/26/17 23:51 91 Nasal Cannula 2.0 04/26/17 23:51 36.3 70 15 124/61 (82) 84 Room Air 04/26/17 20:00 Room Air 04/26/17 19:36 36.6 59 18 128/84 (99) 93 Room Air 04/26/17 16:00 95 Room Air 04/26/17 15:28 36.5 64 18 122/79 (93) 92 Room Air Physical Exam General Appearance: no apparent distress, + obese Eyes: normal inspection, EOMI, sclerae normal ENT: normal ENT inspection, hearing grossly normal, pharynx normal Neck: supple, no adenopathy, no JVD, trachea midline Respiratory/Chest: chest non-tender, lungs clear, normal breath sounds, no respiratory distress, no accessory muscle use Cardiovascular: regular rate, rhythm, no edema, no gallop, no JVD, no murmur Abdomen: normal bowel sounds, non tender, soft, no organomegaly Extremities: normal range of motion, non-tender, normal inspection, no pedal edema, no calf tenderness, pelvis stable Neurologic/Psychiatric: health policy manager II-XII nml as tested, no motor/sensory deficits, alert, normal mood/affect, oriented x 3 Skin: normal color, warm/dry, no rash Lymphatic: no adenopathy Laboratory Results Last 24 Hours Test 04/27/17 05:42 04/27/17 10:08 White Blood Count 11.40 K/uL Red Blood Count 3.64 M/uL Hemoglobin 10.2 g/dL Hematocrit 32.2 % Mean Corpuscular Volume 88.5 fL Mean Corpuscular Hemoglobin 28.0 pg Mean Corpuscular Hemoglobin Concent 31.7 g/dl RDW Standard Deviation 51.8 fL RDW Coefficient of Variation 16.1 % Platelet Count 257 K/uL Mean Platelet Volume 10.9 fL Sodium Level 142 mmol/L Potassium Level 4.3 mmol/L Chloride Level 111 mmol/L Carbon Dioxide Level 26 mmol/L Anion Gap 5.0 mmol/L Blood Urea Nitrogen 36 mg/dl Creatinine 1.79 mg/dl Est Creatinine Clear Calc Drug Dose 27.5 ml/min Estimated GFR () 31.1 Estimated GFR (Non- 26.9 BUN/Creatinine Ratio 20.1 Random Glucose 104 mg/dl Calcium Level 9.0 mg/dl Prothrombin Time 12.0 SECONDS Prothromb Time International Ratio 1.1 Activated Partial Thromboplast Time 34.5 SECONDS Partial Thromboplastin Ratio 1.3 Heparin Anti-Xa Act, Low Molec Wt 0.89 IU/ML Assessment and Plan Ms. 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 Dyspnea and BURTON: unclear etiology does not appear to be heart failure, would not be due to afib, no pneumonitis holding Bosulif as potential cause will treat possible basilar infiltrate with broad spectrum antibiotics, plan for thoracentesis tomorrow start Vanco and Zosyn Persistent Atrial Fibrillation: Rate Controlled - Diltiazem 360 mg daily and Toprol-XL 200 mg daily - hold Savaysa in anticipation of thoracentesis - Cardiology following - holding on cardioversion Pericardial Effusion without Evidence of Tamponade: - Echo - EF 50-55% with evidence of small pericardial effusion Pleural effusion: thoracentesis tomorrow for evaluation small, unclear if contributing to dyspnea Chronic Diastolic CHF: Appears Euvolemic - Daily weights and I&O - Will hold Lasix at this time - did have a mild elevation in kidney function and will continue to monitor CML: Follows with Dr. Wiggins - Bosulif 300 mg daily - possibly could be a contributing cause of her BURTON and pleural effusions, will hold for now, follow up with Dr. Wiggins in a few weeks for CBC HLD: STABLE - Lipitor 10 mg daily DVT Prophylaxis: holding Savaysa CODE STATUS: DO NOT RESUSCITATE Continued [facility] stay due to: other (Dyspnea on ) Discharge planning: home
[2017-04-27] MEDS ORDERED: PIPERACILL/TAZOBAC IV 4.5 GM in DEXTROSE 5% 100ML IV SCH (16:30)
--- NOTE | 2017-04-27 16:35 | Pharmacy Progress Note ---
Pharmacy Antibiotic Consult Date of Service: Apr 27, 2017. Pharmacy Dosing Scope Pharmacy is consulted to initiate vancomycin and Zosyn IV dosing therapy, order appropriate labs and adjust drug dose/frequency. Subjective The patient is a 76 year old female admitted on Apr 24, 2017 at 15:32 with shortness of breath. 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 Objective Height (Feet): 5 Height (Inches): 1.00 Weight (Kilograms): 94.000 Lab Results (24hrs): Test 04/27/17 05:42 04/27/17 10:08 White Blood Count 11.40 K/uL (4.8-10.8) Red Blood Count 3.64 M/uL (4.2-5.4) Hemoglobin 10.2 g/dL (12.0-16.0) Hematocrit 32.2 % (37-47) Mean Corpuscular Volume 88.5 fL (80-100) Mean Corpuscular Hemoglobin 28.0 pg (25-34) Mean Corpuscular Hemoglobin Concent 31.7 g/dl (32-36) RDW Standard Deviation 51.8 fL (36.4-46.3) RDW Coefficient of Variation 16.1 % (11.5-14.5) Platelet Count 257 K/uL (130-400) Mean Platelet Volume 10.9 fL (7.4-10.4) Sodium Level 142 mmol/L (136-145) Potassium Level 4.3 mmol/L (3.5-5.1) Chloride Level 111 mmol/L (98-107) Carbon Dioxide Level 26 mmol/L (21-32) Anion Gap 5.0 mmol/L (3-11) Blood Urea Nitrogen 36 mg/dl (7-18) Creatinine 1.79 mg/dl (0.60-1.20) Est Creatinine Clear Calc Drug Dose 27.5 ml/min Estimated GFR () 31.1 Estimated GFR (Non- 26.9 BUN/Creatinine Ratio 20.1 (10-20) Random Glucose 104 mg/dl (70-99) Calcium Level 9.0 mg/dl (8.5-10.1) Prothrombin Time 12.0 SECONDS (9.0-12.0) Prothromb Time International Ratio 1.1 (0.9-1.1) Activated Partial Thromboplast Time 34.5 SECONDS (21.0-31.0) Partial Thromboplastin Ratio 1.3 Heparin Anti-Xa Act, Low Molec Wt 0.89 IU/ML (0 - <0.10) Recent Pertinent Medications Item Value Date Time Piperacillin Sod/ 115 ml @ 28.75 mls/hr 04/27/17 2200 Tazobactam Sod Q8/IV 3.375 gm/Dextrose Vancomycin HCl 540 ml @ 200 mls/hr 04/27/17 1700 2000 mg/Sodium TODAY@1700/IV Chloride Piperacillin Sod/ 120 ml @ 200 mls/hr 04/27/17 1630 Tazobactam Sod TODAY@1630/IV 4.5 gm/Dextrose Assessment & Plan Loading dose: vancomycin 2000 mg IV X 1 dose then will redose empirically based on vancomycin levels. Goal trough level estimate: between 15-20 mcg/mL. Random level has been ordered for: 04/28/17 with am labs. Zosyn 4.5Gm IV loading dose, then 3.375 Gm (infused over 4 hr) every 8 hr. for CrCl greater than 20 ml/min. Pharmacy will continue to follow and will adjust dose/frequency as necessary. Thank you
[2017-04-27] MEDS ORDERED: VANCOMYCIN INJ 2,000 MG in SODIUM CHLORIDE 0.9% 500ML 500 ML IV SCH (17:00)
[2017-04-27] MEDS: ATORVASTATIN 10 MG TAB PO SCH (19:45)
[2017-04-27] MEDS ORDERED: VANCOMYCIN INJ 1,000 MG in SODIUM CHLORIDE 0.9% 250ML 250 ML IV SCH (21:00)
[2017-04-27] MEDS: PIPERACILL/TAZOBAC IV 3.375 GM in DEXTROSE 5% 100ML 100 ML IV SCH (22:16)
[2017-04-28] VITALS (9 sets, daily range): BP systolic 115–168; BP diastolic 63–87; PULSE 64–102; TEMP 36.4–36.8; O2SAT 91–97
[2017-04-28] MEDS: PIPERACILL/TAZOBAC IV 3.375 GM in DEXTROSE 5% 100ML 100 ML IV SCH (05:48)
[2017-04-28 06:44] LABS: CREATININE 1.28 mg/dl (0.60-1.20)
[2017-04-28] MEDS: POTASSIUM CHLORIDE 10 MEQ TABCR PO SCH (07:27)
[2017-04-28] MEDS: METOPROLOL SUCC 50MG EXT REL TAB PO SCH (07:27)
[2017-04-28] MEDS: DILTIAZEM HCL (TIAzac) 180 MG CAPCR PO SCH (07:28)
[2017-04-28] MEDS: ACETAMINOPHEN 500 MG TAB PO SCH ×2 (07:29→21:16)
--- NOTE | 2017-04-28 08:25 | CARDIOLOGY PROGRESS NOTE ---
DATE: 04/28/2017 TIME: 6:00 a.m. SUBJECTIVE: She continues to feel dyspneic with very little movement and sometimes with conversation. She denies syncope, near syncope, palpitations, chest pain or bleeding. She is awaiting thoracentesis, which is apparently being planned for tomorrow by Dr. Candelaria. OBJECTIVE: VITAL SIGNS: Temperature is 36.4 degrees, heart rate 90 beats per minute, respiration rate 18, blood pressure 135/86 mmHg, oxygen saturation is 91% on room air. I's and O's positive 620 mL yesterday, weight is 93.7 kg. GENERAL: No acute distress. She is alert. NECK: No JVD. CARDIAC EXAM: No ventricular heave, irregularly irregular, normal S1, S2. No audible murmurs, rubs or gallops. LUNGS: Decreased breath sounds at the bases, otherwise clear. ABDOMEN: Soft, nontender, nondistended. Normoactive bowel sounds. EXTREMITIES: Trace bilateral lower extremity edema. No cyanosis. PSYCHIATRIC: Affect appears appropriate. MEDICATIONS: Include diltiazem 360 mg daily, Lipitor 10 mg daily, metoprolol succinate 200 mg daily, Zosyn 3.375 grams IV q. 8 hours, potassium chloride 10 mEq daily. Telemetry personally reviewed. Atrial fibrillation. LABORATORY DATA: Creatinine 1.28 down from 1.79. ASSESSMENT AND PLAN: 1. Atrial fibrillation: Her heart rate is reasonably controlled. It is not likely the cause of her conversational dyspnea and dyspnea with minimal exertion. Cardioversion is on hold as it would not likely add much benefit to her symptoms at this point and she is now off of anticoagulation in anticipation of thoracentesis. Continue rate controlling medications. 2. Dyspnea: Likely secondary to pleural effusion and possibly Bosulif which can cause both dyspnea and pleural effusions. Bosulif is now on hold. Thoracentesis is planned for tomorrow by Dr. Candelaria. 3. Pericardial effusion: Small pericardial effusion which does not appear to be causing any hemodynamic significance at this point. She is clinically not in tamponade physiology. We will continue to monitor over time. 4. Cardiomyopathy: She has a history of cardiomyopathy, but her LV systolic function is now normal as per echo report on 04/26/2017 with an EF of 50-55%. She has no known coronary artery disease. 5. Pleural effusion: As per Dr. Candelaria, pulmonology. 6. Disposition: I will be away from the hospital tomorrow, but will return on Wednesday. If there are any questions or concerns, please do not hesitate to contact the on-call press tender short goods from [facility].
--- NOTE | 2017-04-28 09:05 | Pharmacy Progress Note ---
Pharmacy Antibiotic Prog Note Date of Service Apr 28, 2017. Subjective The patient is currently on day # 2 of 7 IV therapy. Objective Height (Feet): 5 Height (Inches): 1.00 Weight (Kilograms): 93.700 Lab Results (24hrs): Test 04/27/17 10:08 04/28/17 05:47 Prothrombin Time 12.0 SECONDS (9.0-12.0) Prothromb Time International Ratio 1.1 (0.9-1.1) Activated Partial Thromboplast Time 34.5 SECONDS (21.0-31.0) Partial Thromboplastin Ratio 1.3 Heparin Anti-Xa Act, Low Molec Wt 0.89 IU/ML (0 - <0.10) Creatinine 1.28 mg/dl (0.60-1.20) Est Creatinine Clear Calc Drug Dose 38.4 ml/min Estimated GFR () 46.7 Estimated GFR (Non- 40.3 Random Vancomycin Level 18.6 mcg/ml Assessment & Plan Ms. Samuels's random lvl is therapeutic. In the 12hrs since her loading dose, she has gone from a peak of ~35mcg/mL to a random of 18.6mcg/mL. Thus her t1/2 is roughly 12 or 13hrs. I will start Vanco 1250mg (~13mcg/kg) q16 due to her bariatric nature. Pharmacy kinetic team will continue to monitor renal fxn. Trough ordered for 04/30/17 @ 0930 prior to Css. It's noted that her MRSA nares are negative. Will discuss with medicine if d/c' ing Vancomycin is appropriate given her immunocompromised state. Zosyn 3.375g IV EI will be switched to Zosyn 4.5g IV q8 for BMI>/=35 Pharmacy will continue to follow and will adjust dose/frequency as necessary. Thank you
[2017-04-28] MEDS ORDERED: VANCOMYCIN INJ 1,250 MG in SODIUM CHLORIDE 0.9% 250ML 250 ML IV SCH (10:00)
--- NOTE | 2017-04-28 11:07 | PULMONARY PROGRESS NOTE ---
DATE: 04/28/2017 TIME: 0900. SUBJECTIVE: The patient is still quite dyspneic with minimal exertion. She has minimal nonproductive cough. PHYSICAL EXAMINATION: VITAL SIGNS: Temperature 36.4, pulse 90 and irregular, respiratory rate 18, blood pressure 135/80, O2 sat 91% on room air, weight 93.7 kilograms. SKIN: Without lesion. HEENT: Atraumatic, normocephalic, PERRLA, EOMI. Conjunctivae pale. Sclerae nonicteric. Fundi grade 1 changes. NECK: Veins not distended at 45 degrees. No adenopathy. LUNGS: Decreased breath sounds with dullness at both bases. CARDIAC: Exam irregular, irregular rhythm without a gallop. ABDOMEN: Soft, scaphoid. EXTREMITIES: Trace pedal edema. No clubbing. Peripheral cyanosis. NEUROLOGIC: Intact. Dr. Mckenzie's note was appreciated. OVERALL ASSESSMENT: Chronic atrial fibrillation with controlled ventricular response. Bilateral pleural effusions, left greater than right with consolidative changes of the left base, small pericardial effusion. At this point in time, tomorrow would be 3 days since discontinuance of the patient's oral anticoagulant therapy. I think it would be safe then to proceed with thoracentesis. That would be both diagnostic and therapeutic and will proceed to do so in the morning.
--- NOTE | 2017-04-28 13:12 | Hospitalist Progress Note ---
Hospitalist Progress Note Date of Service Apr 28, 2017. Subjective Pt evaluation today including: conversation w/ patient, physical exam, chart review, lab review, review of inpatient medication list Patient seen and evaluated. Sitting up in bedside chair. Continues to have BURTON. Plan for thoracentesis tomorrow and Janet has been on hold. Will update daughter later today. Constitutional: No fever, No chills Respiratory: + dyspnea on exertion, No cough, No dyspnea at rest Cardiovascular: No chest pain, No orthopnea Abdomen: No pain, No nausea, No vomiting Heme: No abnormal bleeding/bruising Medications Current Inpatient Medications Medications (Trade) Dose Ordered Sig/Vesna Route Start Time Stop Time Status Last Admin Dose Admin Acetaminophen (Tylenol Tab) 650 mg Q4H PRN PO 04/24/17 15:15 05/24/17 15:14 Al Hydrox/Mg Hydrox/Simethicone (Maalox Max Susp) 15 ml Q4H PRN PO 04/24/17 15:15 05/24/17 15:14 Magnesium Hydroxide (Milk Of Magnesia Susp) 30 ml Q12H PRN PO 04/24/17 15:15 05/24/17 15:14 Ondansetron HCl (Zofran Inj) 4 mg Q6H PRN IV 04/24/17 15:15 05/24/17 15:14 Acetaminophen (Tylenol Tab) 1,000 mg AMHS PO 04/24/17 21:00 05/24/17 20:59 04/28/17 07:29 1,000 MG Atorvastatin Calcium (Lipitor Tab) 10 mg QPM PO 04/24/17 21:00 05/24/17 20:59 04/27/17 19:45 10 MG Diltiazem HCl (TIAzac CAP) 360 mg QAM PO 04/25/17 09:00 05/25/17 08:59 04/28/17 07:28 360 MG Furosemide (Lasix Tab) 40 mg QAM PO 04/25/17 09:00 05/25/17 08:59 Future Hold 04/25/17 08:32 40 MG Metoprolol Succinate (Toprol Xl Tab) 200 mg QAM PO 04/25/17 09:00 05/25/17 08:59 04/28/17 07:27 200 MG Potassium Chloride (Klor-Con M10) 10 meq QAM PO 04/25/17 09:00 05/25/17 08:59 04/28/17 07:27 10 MEQ Edoxaban (Savaysa) 30 mg HS PO 04/25/17 21:00 05/25/17 20:59 Future Hold 04/26/17 20:02 30 MG Miscellaneous Information (Consult) 1 ea UD PRN N/A 04/27/17 15:30 05/27/17 15:29 Miscellaneous Information (Consult) 1 ea UD PRN N/A 04/27/17 15:30 05/27/17 15:29 Vancomycin HCl 1250 mg/Sodium Chloride 275 ml @ 125 mls/hr Q16H IV 04/28/17 10:00 05/05/17 09:59 04/28/17 10:21 125 MLS/HR Piperacillin Sod/ Tazobactam Sod 4.5 gm/Dextrose 120 ml @ 30 mls/hr Q8H IV 04/28/17 14:00 05/04/17 13:59 Objective Vital Signs Date Time Temp Pulse Resp B/P (MAP) Pulse Ox O2 Delivery O2 Flow Rate FiO2 04/28/17 12:23 36.6 64 20 115/70 (85) 93 Room Air 04/28/17 11:18 Room Air 04/28/17 08:00 Room Air 04/28/17 07:01 36.6 102 20 168/71 (103) 93 Room Air 04/28/17 04:00 Room Air 04/28/17 03:39 135/86 (102) 04/28/17 02:36 36.4 90 18 165/80 (108) 91 Room Air 04/28/17 00:00 Room Air 04/27/17 23:19 36.7 80 18 166/84 (111) 91 Room Air 04/27/17 20:00 Room Air 04/27/17 19:43 36.6 85 20 124/64 (84) 92 Room Air 04/27/17 16:00 94 Room Air 04/27/17 15:14 36.5 61 22 120/71 (87) 93 Room Air Physical Exam General Appearance: WD/WN, no apparent distress Neck: supple, no JVD, trachea midline Respiratory/Chest: lungs clear, no respiratory distress, no accessory muscle use, + decreased breath sounds (bases b/l) Cardiovascular: + irregularly irregular Abdomen: normal bowel sounds, non tender, soft Neurologic/Psychiatric: alert Laboratory Results Last 24 Hours Test 04/28/17 05:47 Creatinine 1.28 mg/dl Est Creatinine Clear Calc Drug Dose 38.4 ml/min Estimated GFR () 46.7 Estimated GFR (Non- 40.3 Random Vancomycin Level 18.6 mcg/ml Assessment and Plan Ms. 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 Dyspnea and BURTON: Unclear Etiology - Possibly related to Bosulif - currently on hold - Will treat bibasilar infiltrate with Vanc and Zosyn and will continue to monitor for de-escalation - Thoracentesis planned for 04/29 - Pulmonology following Persistent Atrial Fibrillation: Rate Controlled - Diltiazem 360 mg daily and Toprol-XL 200 mg daily - Hold Savaysa in anticipation of thoracentesis - Cardiology following - holding on cardioversion Pericardial Effusion without Evidence of Tamponade: STABLE - Echo - EF 50-55% with evidence of small pericardial effusion Pleural Effusion: - This is relatively small but will monitor for improvement with symptoms - thoracentesis planned for tomorrow Chronic Diastolic CHF: Appears Euvolemic - Daily weights and I&O - Cr improving with Lasix held currently CML: Follows with Dr. Wiggins - Bosulif 300 mg daily on hold - possibly could be a contributing cause of her BURTON and pleural effusions - follow up with Dr. Wiggins in a few weeks for CBC HLD: STABLE - Lipitor 10 mg daily DVT Prophylaxis: Holding Savaysa CODE STATUS: DO NOT RESUSCITATE Disposition: - Pending Thoracentesis - possible D/C next 1-2 days Continued [facility] stay due to: other (Thoracentesis for 04/29) Discharge planning: home
[2017-04-28] MEDS: PIPERACILL/TAZOBAC IV 4.5 GM in DEXTROSE 5% 100ML IV SCH ×2 (13:58→21:18)
--- NOTE | 2017-04-28 14:09 | DIAGNOSTIC IMAGING REPORT ---
CHEST ONE VIEW PORTABLE CLINICAL HISTORY: 76 years-old Female presenting with Pleural Effusion. TECHNIQUE: Portable upright AP view of the chest was obtained. COMPARISON: 04/24/2017. FINDINGS: Atherosclerosis of aortic arch. Cardiac silhouette enlarged. Persistent left basilar opacity with small to moderate right and moderate left pleural effusions. Pulmonary vascular prominence. No pneumothorax. Osseous structures normal. Multiple overlying external leads project over the right upper quadrant degrading evaluation. IMPRESSION: 1. No significant change in cardiomegaly with left greater than right pleural effusions and bibasilar atelectasis greater on the left. 2. Volume overload. Electronically signed by: Viral Villalta M.D. 04/28/2017 2:08 PM Dictated Date/Time: 04/28/2017 2:07 PM
[2017-04-28] MEDS: ATORVASTATIN 10 MG TAB PO SCH (21:15)
[2017-04-29] VITALS (12 sets, daily range): BP systolic 97–148; BP diastolic 63–75; PULSE 72–134; TEMP 36.2–36.7; O2SAT 91–98
[2017-04-29] MEDS: PIPERACILL/TAZOBAC IV 4.5 GM in DEXTROSE 5% 100ML IV SCH ×3 (06:02→22:01)
[2017-04-29 07:15] LABS: CREATININE 1.8 mg/dl (0.60-1.20)
[2017-04-29] MEDS: DILTIAZEM HCL (TIAzac) 180 MG CAPCR PO SCH (07:40)
[2017-04-29] MEDS: ACETAMINOPHEN 500 MG TAB PO SCH ×2 (07:40→21:13)
[2017-04-29] MEDS: METOPROLOL SUCC 50MG EXT REL TAB PO SCH (07:40)
[2017-04-29] MEDS: POTASSIUM CHLORIDE 10 MEQ TABCR PO SCH (07:40)
--- NOTE | 2017-04-29 12:45 | DIAGNOSTIC IMAGING REPORT ---
CHEST ONE VIEW PORTABLE HISTORY: S/P left thoracentesis R/O PNX COMPARISON: Chest 04/28/2017. FINDINGS: No pneumothorax. Trace left pleural effusion has improved status post thoracentesis. Left basilar densities favor atelectasis. Small right pleural fusion persist. The heart remains enlarged. IMPRESSION: No pneumothorax. Trace left pleural effusion has improved status post thoracentesis. Small right pleural effusion persists. Electronically signed by: Rigoberto Clinton M.D. 04/29/2017 12:44 PM Dictated Date/Time: 04/29/2017 12:39 PM
--- NOTE | 2017-04-29 12:54 | Procedure Note ---
Procedure Note Date of Service Apr 29, 2017. Procedure Note PROCEDURE NOTE: PROCEDURE: Thoracentesis DATE OF PROCEDURE: 04/29/2017 TIME OF PROCEDURE: 11:45 AM PROVIDER PERFORMING PROCEDURE: Lopez Jennings PA-C #[id number] NARRATIVE: Patient is a 76-year-old female with CML. She follows with Dr. Selvin Wiggins as an outpatient. She presented with shortness of breath and was found to have bilateral pleural effusions. Chest x-rays revealed persistent effusion. A bedside ultrasound was performed just prior to the procedure and patient was found to have a moderate to large pleural effusion on the left side and a small pleural effusion on the right side. Consent was obtained by Dr. Candelaria for bedside thoracentesis. DESCRIPTION OF PROCEDURE: Patient was seen and examined prior to proposed thoracentesis. A bedside ultrasound was performed to identify appropriate area for insertion of catheter. An adequate site was identified and marked for subsequent thoracentesis. A timeout was performed with nursing staff in the room. Real-time ultrasound was performed and images were saved for subsequent review Using clean technique with sterile gloves surgical And mask patient was draped appropriately with a fenestrated sterile drape after area was cleansed with chlorhexidine. 1% lidocaine was then used to make a small wheal at the proposed insertion site. After the patient had adequate local anesthetic a needle was advanced into the pleural space until a flash of pleural fluid was obtained and remainder of 10 mL of 1% unbuffered lidocaine was injected. A small incision was then made with a scalpel. Using negative pressure the thoracentesis needle with overlying catheter was inserted until a small flash was obtained. The catheter was then advanced over the needle into the pleural space without difficulty. Transudative appearing yellow pleural fluid was then evacuated using a syringe pump system. A total of 1200 cc pleural fluid was obtained patient began to experience chest pain and cough. There is no radiation of pain to the shoulder or neck or to the back. Patient's blood pressure, pulse oximetry, and heart rate were monitored perioperatively with no significant change throughout the procedure. Pleural pH was 7.36 Fluid was sent to laboratory for further evaluation including workup for cytology and bacterial and fungal studies Patient tolerated the procedure well with no complications. A post procedure chest x-ray was completed and shows no evidence of pneumothorax. Entire procedure was reported back to Dr. Candelaria and Dr. Rubio.
[2017-04-29 13:20] LABS: PLEURAL FLUID TOTAL PROTEIN 2.9 g/dl
--- NOTE | 2017-04-29 14:19 | Hospitalist Progress Note ---
Hospitalist Progress Note Date of Service Apr 29, 2017. Subjective Pt evaluation today including: conversation w/ patient, conversation w/ family , physical exam, chart review, lab review, review of studies, conversation w/ information technology consultant (Lopez Jennings), review of inpatient medication list Patient seen and evaluated. No acute events overnight. Had thoracentesis of 1200 cc from L lung. States she feels like it is easier to breath but hasn't gotten up to walk yet. Tolerated the procedure well and F/U CXR looks good. Fluid looks transudative. Suitable for medical floor. Possible D/C tomorrow Constitutional: No fever, No chills Respiratory: No dyspnea at rest Cardiovascular: + problem reported (minimal thoracentesis site discomfort ) , No chest pain Abdomen: No pain, No nausea, No vomiting Heme: No abnormal bleeding/bruising Medications Current Inpatient Medications Medications (Trade) Dose Ordered Sig/Vesna Route Start Time Stop Time Status Last Admin Dose Admin Acetaminophen (Tylenol Tab) 650 mg Q4H PRN PO 04/24/17 15:15 05/24/17 15:14 04/29/17 12:59 650 MG Al Hydrox/Mg Hydrox/Simethicone (Maalox Max Susp) 15 ml Q4H PRN PO 04/24/17 15:15 05/24/17 15:14 Magnesium Hydroxide (Milk Of Magnesia Susp) 30 ml Q12H PRN PO 04/24/17 15:15 05/24/17 15:14 Ondansetron HCl (Zofran Inj) 4 mg Q6H PRN IV 04/24/17 15:15 05/24/17 15:14 Acetaminophen (Tylenol Tab) 1,000 mg AMHS PO 04/24/17 21:00 05/24/17 20:59 04/29/17 07:40 1,000 MG Atorvastatin Calcium (Lipitor Tab) 10 mg QPM PO 04/24/17 21:00 05/24/17 20:59 04/28/17 21:15 10 MG Diltiazem HCl (TIAzac CAP) 360 mg QAM PO 04/25/17 09:00 05/25/17 08:59 04/29/17 07:40 360 MG Furosemide (Lasix Tab) 40 mg QAM PO 04/25/17 09:00 05/25/17 08:59 Future Hold 04/25/17 08:32 40 MG Metoprolol Succinate (Toprol Xl Tab) 200 mg QAM PO 04/25/17 09:00 05/25/17 08:59 04/29/17 07:40 200 MG Potassium Chloride (Klor-Con M10) 10 meq QAM PO 04/25/17 09:00 05/25/17 08:59 04/29/17 07:40 10 MEQ Edoxaban (Savaysa) 30 mg HS PO 04/25/17 21:00 05/25/17 20:59 Future Hold 04/26/17 20:02 30 MG Miscellaneous Information (Consult) 1 ea UD PRN N/A 04/27/17 15:30 05/27/17 15:29 Piperacillin Sod/ Tazobactam Sod 4.5 gm/Dextrose 120 ml @ 30 mls/hr Q8H IV 04/28/17 14:00 05/04/17 13:59 04/29/17 06:02 30 MLS/HR Objective Vital Signs Date Time Temp Pulse Resp B/P (MAP) Pulse Ox O2 Delivery O2 Flow Rate FiO2 04/29/17 12:20 Room Air 04/29/17 12:15 72 111/64 (80) 96 Room Air 04/29/17 12:10 74 97/63 (74) 98 Room Air 04/29/17 12:05 77 114/75 (88) 97 Room Air 04/29/17 12:00 89 130/67 (88) 96 Room Air 04/29/17 11:50 97 134/75 (94) 96 Room Air 04/29/17 10:49 36.6 72 20 131/64 (86) 94 Room Air 04/29/17 08:00 Room Air 04/29/17 07:42 36.7 134 20 146/74 (98) 94 Room Air 04/29/17 04:00 Room Air 04/29/17 02:47 36.5 98 26 148/73 (98) 95 Room Air 04/29/17 00:00 Room Air 04/28/17 22:33 36.8 88 20 157/87 (110) 92 Room Air 04/28/17 20:00 96 Room Air 04/28/17 18:52 36.6 84 20 146/84 (104) 93 Room Air 04/28/17 16:00 95 Room Air 04/28/17 15:41 36.7 69 18 121/63 (82) 97 Physical Exam General Appearance: WD/WN, no apparent distress ENT: hearing grossly normal Neck: supple, no JVD, trachea midline Respiratory/Chest: no respiratory distress, no accessory muscle use, + pertinent finding (improved aeration in L lung to bases; minimally diminshed at R base) Cardiovascular: + irregularly irregular Abdomen: normal bowel sounds, non tender, soft Extremities: no pedal edema Neurologic/Psychiatric: alert Skin: normal color, warm/dry Laboratory Results Last 24 Hours Test 04/29/17 06:20 04/29/17 12:00 04/29/17 12:47 Creatinine 1.80 mg/dl Est Creatinine Clear Calc Drug Dose 27.3 ml/min Estimated GFR () 30.9 Estimated GFR (Non- 26.7 Pleural Fluid Source LEFT LUNG Pleural Fluid Color YELLOW Pleural Fluid Appearance CLEAR Pleural Fluid WBC 654 /uL Pleural Fluid RBC 5000 /uL Pleural Fluid pH 7.36 Pleural Fluid Polynuclear WBCs % 6.0 % Pleural Fluid Mononuclear WBCs % 94.0 % Pleural Fluid Total Protein 2.9 g/dl Pleural Fluid LDH 93 IU Pleural Fluid Glucose 123 mg/dl Pleural Fluid Amylase 27 U/L Lactate Dehydrogenase 217 U/L Assessment and Plan Ms. 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 Dyspnea and BURTON: Unclear Etiology - Possibly related to Bosulif - currently on hold with plans to re-evaluate in next coming weeks - Will treat bibasilar infiltrate with Zosyn Persistent Atrial Fibrillation: Rate Controlled - Diltiazem 360 mg daily and Toprol-XL 200 mg daily - Resume Savaysa - Cardiology following - holding on cardioversion Pericardial Effusion without Evidence of Tamponade: STABLE - Echo - EF 50-55% with evidence of small pericardial effusion Pleural Effusion S/P Thoracentesis on 04/29 for 1200 cc L Lung: IMPROVING - Pulmonology following - discussed with Lopez Jennings - plan to keep site clean and dry, may shower after lunch tomorrow and bandaid and be removed -- No baths, hot tubs, saunas x 7 days Chronic Diastolic CHF: STABLE - EUVOLEMIC - Daily weights and I&O - Cr stabilizing CML: Follows with Dr. Wiggins - Bosulif 300 mg daily on hold -- follow up with Dr. Wiggins in a few weeks for CBC HLD: STABLE - Lipitor 10 mg daily DVT Prophylaxis: Holding Savaysa CODE STATUS: DO NOT RESUSCITATE Disposition: - Possible D/C tomorrow Continued [facility] stay due to: other (monitor after thoracentesis) Discharge planning: home
[2017-04-29] MEDS ORDERED: NON-FORMULARY MEDICATION SCH (14:30)
--- NOTE | 2017-04-29 19:01 | Pulmonology Progress Note ---
Pulmonary Progress Note Date of Service Apr 29, 2017. Attending Dr. Candelaria Subjective Patient seen at bedside. She continues to have dyspnea. Particularly with exertion. She appears to be short of breath but is not using any accessory muscles. She does not seem in significant distress. She denies any chest pain or tightness. She has no fever or chills. Aside from shortness of breath and dyspnea with exertion she has no acute complaints. Objective GENERAL : No acute distress. She does appear to be short of breath but no use of accessory muscles EYES: No icterus, gaze conjugate NOSE: No evidence of epistaxis. Oxygenating well on room air with no nasal cannula in place MOUTH: No lesions or candidiasis NECK: Supple LUNGS: Decreased breath sounds at the bases. HEART: Regular, rate controlled. ABDOMEN: Soft, NT, ND, BS Present EXTREMITIES: No LE edema, pedal pulses intact NEURO: A&OX3 Assessment & Plan Bilateral pleural effusions * Bedside ultrasound performed by this provider which reveals moderate to large left pleural effusion and small right pleural effusion with significant atelectasis on the right. * We will plan on ultrasound thoracentesis later this morning. * Consent for thoracentesis obtained by Dr. Candelaria * Okay to resume anticoagulation for atrial fibrillation. No further procedure from a pulmonary standpoint Atelectasis * Incentive spirometry * Ambulate as tolerated DVT prophylaxis * Okay to restart anticoagulation with Edoxaban * Ambulate as tolerated Thank you for including us in the care of this patient. Please refer to Dr. Candelaria's addendum for further recommendations. Data Medications: Current Inpatient Medications Medications (Trade) Dose Ordered Sig/[place] Route Start Time Stop Time Status Last Admin Dose Admin Acetaminophen (Tylenol Tab) 650 mg Q4H PRN PO 04/24/17 15:15 05/24/17 15:14 04/29/17 12:59 650 MG Al Hydrox/Mg Hydrox/Simethicone (Maalox Max Susp) 15 ml Q4H PRN PO 04/24/17 15:15 05/24/17 15:14 Magnesium Hydroxide (Milk Of Magnesia Susp) 30 ml Q12H PRN PO 04/24/17 15:15 05/24/17 15:14 Ondansetron HCl (Zofran Inj) 4 mg Q6H PRN IV 04/24/17 15:15 05/24/17 15:14 Acetaminophen (Tylenol Tab) 1,000 mg AMHS PO 04/24/17 21:00 05/24/17 20:59 04/29/17 07:40 1,000 MG Atorvastatin Calcium (Lipitor Tab) 10 mg QPM PO 04/24/17 21:00 05/24/17 20:59 04/28/17 21:15 10 MG Diltiazem HCl (TIAzac CAP) 360 mg QAM PO 04/25/17 09:00 05/25/17 08:59 04/29/17 07:40 360 MG Furosemide (Lasix Tab) 40 mg QAM PO 04/25/17 09:00 05/25/17 08:59 Future Hold 04/25/17 08:32 40 MG Metoprolol Succinate (Toprol Xl Tab) 200 mg QAM PO 04/25/17 09:00 05/25/17 08:59 04/29/17 07:40 200 MG Potassium Chloride (Klor-Con M10) 10 meq QAM PO 04/25/17 09:00 05/25/17 08:59 04/29/17 07:40 10 MEQ Edoxaban (Savaysa) 30 mg HS PO 04/25/17 21:00 05/25/17 20:59 Future hold 04/26/17 20:02 30 MG Miscellaneous Information (Consult) 1 ea UD PRN N/A 04/27/17 15:30 05/27/17 15:29 Piperacillin Sod/ Tazobactam Sod 4.5 gm/Dextrose 120 ml @ 30 mls/hr Q8H IV 04/28/17 14:00 05/04/17 13:59 04/29/17 14:18 30 MLS/HR I & O: 24-Hour Column 04/30/17 07:59 Intake Total 292 ml Output Total 250 ml Balance 42 ml Vital Signs: Date Time Temp Pulse Resp B/P (MAP) Pulse Ox O2 Delivery O2 Flow Rate FiO2 04/29/17 16:24 36.2 78 18 118/75 (89) 91 Room Air 04/29/17 14:31 36.6 72 20 96 2.0 04/29/17 12:20 Room Air 04/29/17 12:15 72 111/64 (80) 96 Room Air 04/29/17 12:10 74 97/63 (74) 98 Room Air 04/29/17 12:05 77 114/75 (88) 97 Room Air 04/29/17 12:00 89 130/67 (88) 96 Room Air 04/29/17 11:50 97 134/75 (94) 96 Room Air 04/29/17 10:49 36.6 72 20 131/64 (86) 94 Room Air 04/29/17 08:00 Room Air 04/29/17 07:42 36.7 134 20 146/74 (98) 94 Room Air 04/29/17 04:00 Room Air 04/29/17 02:47 36.5 98 26 148/73 (98) 95 Room Air 04/29/17 00:00 Room Air 04/28/17 22:33 36.8 88 20 157/87 (110) 92 Room Air 04/28/17 20:00 96 Room Air Laboratory Results: Last 24 Hours Test 04/29/17 06:20 04/29/17 12:00 04/29/17 12:47 Creatinine 1.80 mg/dl Est Creatinine Clear Calc Drug Dose 27.3 ml/min Estimated GFR () 30.9 Estimated GFR (Non- 26.7 Pleural Fluid Source LEFT LUNG Pleural Fluid Color YELLOW Pleural Fluid Appearance CLEAR Pleural Fluid WBC 654 /uL Pleural Fluid RBC 5000 /uL Pleural Fluid pH 7.36 Pleural Fluid Polynuclear WBCs % 6.0 % Pleural Fluid Mononuclear WBCs % 94.0 % Pleural Fluid Total Protein 2.9 g/dl Pleural Fluid LDH 93 IU Pleural Fluid Glucose 123 mg/dl Pleural Fluid Amylase 27 U/L Lactate Dehydrogenase 217 U/L
[2017-04-29] MEDS: EDOXABAN TOSYLATE 30 MG TAB PO SCH (20:15)
[2017-04-29] MEDS: ATORVASTATIN 10 MG TAB PO SCH (21:13)
[2017-04-30 04:30] VITALS: BP 165/80; PULSE 78; TEMP 36.5; O2SAT 90
[2017-04-30] MEDS: PIPERACILL/TAZOBAC IV 4.5 GM in DEXTROSE 5% 100ML IV SCH (05:55)
[2017-04-30 07:31] LABS: CREATININE 1.93 mg/dl (0.60-1.20)
[2017-04-30 07:55] VITALS: BP 130/82; PULSE 104; TEMP 36.5; O2SAT 91
[2017-04-30 07:57] VITALS: O2SAT 91
--- NOTE | 2017-04-30 08:30 | CARDIOLOGY PROGRESS NOTE ---
DATE: 04/30/2017 TIME: 8:12 a.m. SUBJECTIVE: Yesterday, she underwent thoracentesis of the left side. 1.2 liters of fluid was removed. She feels significantly better but still has some dyspnea with exertion. She has not exerted herself much; however. She denies any further shortness of breath at rest or with minimal movement in her bed. She is able to lay flat without orthopnea. She denies chest pain, syncope, near syncope, or palpitations. OBJECTIVE: VITAL SIGNS: Temperature 36.5 degrees. Most recent heart rate charted is 104 beats per minute but otherwise mostly in the 70s, respiration rate 22, blood pressure 130/82 mmHg, oxygen saturation 91% on room air. I's and O's positive 451 mL. Weight is 91.9 kg. GENERAL: No acute distress. She is alert. NECK: No JVD. CARDIAC EXAM: No ventricular heave, irregularly irregular, normal S1 and S2. 1/6 systolic murmur. No rubs or gallops. LUNGS: Clear with improved breath sounds at the left base. ABDOMEN: Soft, nontender, nondistended. Normoactive bowel sounds. EXTREMITIES: No cyanosis. Trace bilateral lower extremity edema. PSYCHIATRIC: Affect appears appropriate. MEDICATIONS: Include diltiazem 360 mg daily, metoprolol succinate 200 mg daily, Savaysa 30 mg at bedtime, Lipitor 10 mg daily, Zosyn 4.5 grams IV q. 8 hours, potassium chloride 10 mEq daily. LABORATORY DATA: Creatinine 1.93. ASSESSMENT AND PLAN: 1. Atrial fibrillation: Her breathing is much better following thoracentesis, but not yet back to baseline. Atrial fibrillation was not likely the main culprit of her dyspnea as she was having conversational dyspnea. Can continue anticoagulation therapy if no contraindications. Would continue rate control strategy for now. If there are further concerns in the future, could consider cardioversion at that time, but at this time there is no clear indication as she appears to be tolerating atrial fibrillation. We will continue to evaluate as an outpatient. 2. Dyspnea: Improved following thoracentesis. Bosulif can cause both dyspnea and pleural effusions. Bosulif is currently on hold and hopefully she continues to improve over time. Heart failure does not appear to be playing a role. She has had 2 hospitalizations where she has received intravenous diuretics and after only a mild diuresis she has become azotemic on both occasions. 3. Pericardial effusion: This can be followed over time. It does not appear to be causing any significance from a hemodynamic standpoint. 4. Pleural effusion: As per pulmonology. 5. Disposition: Follow up in cardiology office in a few weeks. Cardiology will sign off at this time.
--- NOTE | 2017-04-30 08:41 | Discharge Instructions ---
Discharge Instructions Date of Service Apr 30, 2017. Admission Reason for Admission: Acute Diastolic Chf, Atrial Fibrillation Discharge Discharge Diagnosis / Problem: Pleural Effusion Discharge Goals Goal(s): Decrease discomfort, Improve function, Increase independence Activity Recommendations Activity Limitations: resume your previous activity . Instructions / Follow-Up Instructions / Follow-Up Pleural Effusion: - This is possibly caused by the Bosulif - Some of the studies of the fluid is still pending and will be monitored and your family doctor will be able to view these - Will complete a course of antibiotics to make sure any bacteria that could be in there is treated. You will be prescribed Augmentin twice a day. You had your morning dose today on 04/30 and will just need to take the evening dose. Then resume twice a day on 05/01 - You may remove the bandaid from the site of thoracentesis and shower today. No baths, hot tubs, saunas for 7 days to prevent infection at the site - May use Tylenol for mild pain at this site - Recommend to take deep breaths and use the breathing machine that you used in the hospital to expand your lungs. It may take a couple days to get those little airways to open back up now that the fluid is gone. - As well, if this is strickly the Bosulif it may take a little bit of time to recover now that this medication is on hold. - Recommend to walk when you can but take breaks to prevent feeling weak or fatigued. Persistent Atrial Fibrillation: - Continue your previously prescribed Diltiazem 360 mg daily and Toprol-XL 200 mg daily - Resume Savaysa daily - Will will assist with follow-up with your computer education professor to further consider cardioversion at a later time CML: - Bosulif 300 mg daily on hold per recommendations from Dr. Wiggins. We will assist in a follow-up appointment so he can trend your blood counts and discuss further treatment Lasix Pill: - Discussed with your computer education professor to reduce your Lasix pill to 20 mg twice a day. This is to help prevent you from filling up with fluid but will be easier on your kidneys - this can be re-evaluated at your computer education professor appointment - Recommend to continue to track your weights daily and avoid high-salt foods Current Hospital Diet Patient's current hospital diet: AHA Diet (Heart Healthy), Low Sodium Diet (2gm Na) Discharge Diet Recommended Diet: AHA Diet (Heart Healthy), Low Sodium Diet (2gm Na) Pending Studies Studies pending at discharge: yes List of pending studies: Culture and Stain of the fluid from your lung Medical Emergencies . Who to Call and When: Medical Emergencies: If at any time you feel your situation is an emergency, please call 911 immediately. . Non-Emergent Contact Non-Emergency issues call your: Primary Care Provider Call Non-Emergent contact if: you have a fever, your pain is concerning you, you have any medication questions . . "Provider Documentation" section prepared by Jenna Chen. .
[2017-04-30] MEDS: METOPROLOL SUCC 50MG EXT REL TAB PO SCH (09:08)
[2017-04-30] MEDS: ACETAMINOPHEN 500 MG TAB PO SCH (09:08)
[2017-04-30] MEDS: POTASSIUM CHLORIDE 10 MEQ TABCR PO SCH (09:08)
[2017-04-30] MEDS: DILTIAZEM HCL (TIAzac) 180 MG CAPCR PO SCH (09:09)
[2017-04-30] MEDS ORDERED: VANCOMYCIN TROUGH ONE (09:30)
[2017-04-30] MEDS ORDERED: AMOXICILLIN/CLAVULANATE TAB 500 MG TAB PO ONE (11:17)
[2017-04-30] MEDS ORDERED: LCTX PO (11:24)
[2017-04-30] MEDS ORDERED: FURO20TA PO (11:24)
[2017-04-30] MEDS ORDERED: AMOX500T PO (11:24)
[2017-04-30 11:31] VITALS: BP 130/82; PULSE 104; TEMP 36.5; O2SAT 91
[2017-04-30 11:55] VITALS: BP 128/78; PULSE 75; TEMP 36.5; O2SAT 91
--- NOTE | 2017-04-30 13:15 | Discharge Summary ---
Discharge Summary Date of Service Apr 30, 2017. Discharge Summary Admission Date: Apr 24, 2017 at 15:32 Discharge Date: Apr 30, 2017 Discharge Disposition: Home Principal Diagnosis: Transudative Pleural Effusion Problems/Secondary Diagnoses: 1. CML 2. Paroxysmal Atrial Fibrillation 3. Chronic Anemia 4. Cardiomyopathy 2/2 Cancer Tx (Suspected) 5. Diastolic CHF 6. H/O Breast CA S/P Chemo/XRT/ and S/P Lumpectomy 7. HTN 8. HLD 9. S/P Appendectomy 10. S/P L Salpingectomy 11. S/P YONNY Procedures: (CHEST) THORAX WITHOUT FINDINGS: Plaster Foreman topogram: Unremarkable. On soft tissue windows, multiple hypodense nodules appear to arise from the right thyroid gland posteriorly and protrude exophytically in the right paratracheal region at the thoracic inlet. Extensive infiltration of the subcutaneous tissue along the left upper outer quadrant of the left breast. Inflammatory change extends posterior to the left pectoralis muscle. Skin thickening of the left breast noted more inferiorly. Focal atherosclerosis of the left axillary vasculature. No axillary, supraclavicular, or mediastinal lymphadenopathy. Evaluation of the hanny limited without intravenous contrast. Atherosclerosis of the aorta. Multichamber enlargement of the heart. Coronary artery, mitral annular, and aortic valve calcification. Small pericardial effusion. Moderate bilateral pleural effusions. Indeterminate 14 mm left adrenal nodule. On lung windows, extensive dependent consolidation and volume loss of the lower lobes, left greater than right. Reticular peripheral opacities in the left apex and to a lesser extent in the right apex. Mosaic attenuation could suggest small airways disease. Central airways patent. On bone windows, degenerative changes of the spine. IMPRESSION: 1. Moderate bilateral pleural effusions with bibasilar passive atelectasis. 2. Additionally, reticular peripheral opacities primarily in the left apex could represent post radiation change. 3. Extensive fat infiltration in the upper outer quadrant of the left breast. This could also represent post radiation change. Correlate with clinical history. 4. Indeterminate 14 mm left adrenal nodule. This could be evaluated on outpatient basis of clinically indicated. CHEST ONE VIEW PORTABLE FINDINGS: No pneumothorax. Trace left pleural effusion has improved status post thoracentesis. Left basilar densities favor atelectasis. Small right pleural fusion persist. The heart remains enlarged. IMPRESSION: No pneumothorax. Trace left pleural effusion has improved status post thoracentesis. Small right pleural effusion persists. ECHOCARDIOGRAM * Left ventricular systolic function is low normal. * No segmental left ventricular wall motion abnormalities are noted. * Ejection Fraction = 50-55%. * There is borderline concentric left ventricular hypertrophy. * There is mild tricuspid regurgitation. * Large left pleural effusion. Consultations: 1. Cardiology 2. Pulmonology Medication Reconciliation New Medications: Amoxicillin & Pot Clavulanate (Augmentin 500MG) 1 Tab Tab 500 MG PO BID, #7 TAB Take one tablet this evening on 04/30. Then resume twice a day on 05/01 Lactobacillus Acidophilus (Floranex) 1 Tab Tab 1 TAB PO DAILY for 7 Days, #7 TABS Changed Medications: Furosemide (Lasix) 20 Mg Tab 20 MG PO DAILY for 30 Days, #30 TAB (Changed from: Furosemide (Lasix) 40 Mg Tab 40 Mg PO QAM) Continued Medications: Acetaminophen (Tylenol) 500 Mg Tab 1000 MG PO AMHS, TAB Atorvastatin (Lipitor) 10 Mg Tab 10 MG PO QPM, TAB Cyanocobalamin (Vitamin B-12) 500 Mcg Sub 500 MCG SL DAILY Diltiazem Hcl Ext Rel (Tiazac) 360 Mg Capcr 360 MG PO QAM, CAP Edoxaban Tosylate (Savaysa) 30 Mg Tab 30 MG PO DAILY@1800 Metoprolol Succinate (Toprolxl (Toprol-Xl) 200 Mg Tabcr 200 MG PO QAM, TAB Polyethylene Glycol-Propylene (Systane) 1 Ashly Ashly 1 DROPS OP DAILY, ML Potassium Chloride (Micro-K Ext Rel) 10 Meq Capcr 10 MEQ PO QAM, CAP Discontinued Medications: Bosutinib (Bosulif) 100 Mg Tab 300 MG PO HS 04/24/17: PT HAS WITH HER IF SHE'S GETTING ADMITTED Discharge Exam Review of Systems: Constitutional: No fever, No chills Respiratory: + dyspnea on exertion (improving), No cough, No dyspnea at rest Cardiovascular: No chest pain Abdomen: No pain, No nausea, No vomiting, No diarrhea, No constipation Musculoskeletal: No swelling, No calf pain Genitourinary - Female: No dysuria Hematologic / Lymphatic: No abnormal bleeding/bruising Integumentary: No rash Physical Exam: General Appearance: WD/WN, no apparent distress Eyes: sclerae normal ENT: hearing grossly normal Neck: supple, no JVD, trachea midline Respiratory/Chest: lungs clear, normal breath sounds, no respiratory distress, no accessory muscle use, + pertinent finding (improving aeration in L lung field) Cardiovascular: + irregularly irregular Abdomen / GI: normal bowel sounds, non tender, soft Extremities: no pedal edema Neurologic/Psychiatric: alert Skin: normal color, warm/dry, + pertinent finding (thoracentesis site without erythema/drainage) Hospital Course ADMISSION: Ms. 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 Patient was recently admitted to [facility] due to acute hypoxic respiratory failure from atrial fibrillation with RVR. She was discharged approximately 1 week ago and since reports progressively becoming more short of breath and fatigued. She reports significant dyspnea on exertion with even minimal activity. She has not been able to ambulate much at home due to this BURTON. She feels like she has at baseline respiratory dhillon while at rest. She denies orthopnea. During assessment, patient had more labored breathing with just leaning forward to auscultate her lungs. Patient was diagnosed with paroxysmal atrial fibrillation in 2016 and underwent successful cardioversion. She reports that she has been out of this rhythm until presentation to [place]. During admission she was successfully rate controlled with her chronic Toprol XL and the addition of diltiazem. However, she has not successfully converted out of atrial fibrillation. She had a follow-up appointment with Dr. Mckenzie who planned for cardioversion on April 26. During this [place] admission, she reports she required supplemental oxygen however was successfully weaned to room air and completed two-step but did not qualify her for home oxygen use. She was initially placed on Xarelto, however her PCP switch this to Savaysa 30 mg daily which she has been compliant with. She denies history of DVT/PE. She reports an associated cough that is largely nonproductive. She states that it is more irritative then anything. She denies fever/chills, body aches, rhinorrhea, sore throat, or sick contacts. She reports obtaining her flu vaccine this year. During her [place] admission, she was diuresed however there was limitations as her kidney function worsened. She is currently on her home dosing of Lasix 40 mg daily now that this has improved. HOSPITAL COURSE: Ms. Samuels was admitted for progressive BURTON likely related to pleural effusions. She underwent thoracentesis on 04/29 for 1200 cc from left lung [place]. Patient reports BURTON is improving since thoracentesis but not completely resolved. Discussion with Dr. Wiggins recommended to hold Bosulif over the next couple weeks to see if this is the underlying cause of her BURTON and pleural effusions. Bosulif is known to cause some respiratory symptoms. She will complete a course of Augmentin to cover for respiratory infection. There is no direct consolidation and findings are likely atelectasis however did cover for possible infection. She has remained in rate controlled atrial fibrillation. Cardiology followed and will hold on cardioversion. Plan is to continue to monitor her pericardial effusion which is small on follow-up echocardiogram. Patient's creatinine has stabilized. From a diastolic CHF picture she is euvolemic. Discussed with cardiology to continue her on Lasix 20 mg daily instead of her previously prescribed 40 mg daily. This will need to be continued to be monitored and adjusted as necessary. Plan for outpatient follow-up with Dr. Wiggins and Dr. Mckenzie. Total Time Spent: Greater than 30 minutes This includes examination of the patient, discharge planning, medication reconciliation, and communication with other providers. Discharge Instructions Please refer to the electronic Patient Visit Report (Discharge Instructions) for additional information. Additional Copies To Lopez Dahl M.D.
[2017-04-30] MEDS ORDERED: AMOXICILLIN/CLAVULANATE TAB 500 MG TAB PO SCH (17:00)
== END 2017-04-30 14:01 | disposition home or self-care (01) | DRG 291 ==
LOC: C.EDB 11:44 → C.2T 15:32 → ENRESERV 16:08 → C.4E 04-29 15:12
PROVIDERS: ADMIT Hospitalist; ATTEND Internal Medicine
DX: I13.0 Hypertensive heart and chronic kidney disease with heart failure and stage 1 through stage 4 chronic kidney disease, or unspecified chronic kidney disease (principal); I50.33 Acute on chronic diastolic (congestive) heart failure; C92.10 Chronic myeloid leukemia, BCR/ABL-positive, not having achieved remission; I31.3 Pericardial effusion (noninflammatory); J90 Pleural effusion, not elsewhere classified; I48.91 Unspecified atrial fibrillation; I11.0 Hypertensive heart disease with heart failure; E78.5 Hyperlipidemia, unspecified; I44.7 Left bundle-branch block, unspecified; Z66 Do not resuscitate; Z85.3 Personal history of malignant neoplasm of breast; Z80.3 Family history of malignant neoplasm of breast; Z82.49 Family history of ischemic heart disease and other diseases of the circulatory system

== ENCOUNTER → 2017-05-03 | Outpatient (CLI) | payer OTHER, BC ==
[~2017-05-03] MED LIST changes: +AMOX500T PO; -FRS/40 PO; +FURO20TA PO; +LCTX PO; -[UNRECOGNIZED DRUG - CODE] PO
[2017-05-03 17:56] LABS: BASO % 0.2 %; BASO ABS # 0.03 K/uL (0-0.2); EOS % 0.8 %; HEMATOCRIT 33.6 % (37-47); HEMOGLOBIN 10.5 g/dL (12.0-16.0); IG# 0.03 K/uL (0.00-0.02); LYMPH % 5.3 %; LYMPH ABS # 0.69 K/uL (1.2-3.4); MEAN CELL VOLUME 90.3 fL (80-100); MEAN CORPUSCULAR HEMOGLOBIN 28.2 pg (25-34); MEAN CORPUSCULAR HGB CONC 31.3 g/dl (32-36); MEAN PLATELET VOLUME 11.2 fL (7.4-10.4); MONO % 9.1 %; MONO ABS # 1.19 K/uL (0.11-0.59); NEUT % 84.4 %; NEUT ABS # 11.06 K/uL (1.4-6.5); PLATELET COUNT 281 K/uL (130-400); RED CELL DISTRIBUTION WIDTH CV 16.3 % (11.5-14.5); RED CELL DISTRIBUTION WIDTH SD 53.2 fL (36.4-46.3)
[2017-05-03 18:06] LABS: ALBUMIN 3.3 gm/dl (3.4-5.0); ALT/SGPT 21 U/L (12-78); AST/SGOT 15 U/L (15-37); BLOOD UREA NITROGEN 23 mg/dl (7-18); CALCIUM 9.3 mg/dl (8.5-10.1); CARBON DIOXIDE 27 mmol/L (21-32); CREATININE 1.89 mg/dl (0.60-1.20); GLUCOSE 108 mg/dl (70-99); POTASSIUM 4.2 mmol/L (3.5-5.1); SODIUM 144 mmol/L (136-145)
[2017-05-03 18:11] LABS: ALKALINE PHOSPHATASE 99 U/L (45-117); TOTAL PROTEIN 7.1 gm/dl (6.4-8.2)
== END | disposition home or self-care (01) ==
LOC: C.LABMFLN 16:13
PROVIDERS: ATTEND Family Medicine
DX: I42.9 Cardiomyopathy, unspecified (principal); C93.10 Chronic myelomonocytic leukemia not having achieved remission; I48.91 Unspecified atrial fibrillation; R06.00 Dyspnea, unspecified; J90 Pleural effusion, not elsewhere classified; D64.9 Anemia, unspecified

== ENCOUNTER 2017-05-08 06:03 | Inpatient (IN) | payer OTHER, BC ==
[2017-05-08] VITALS (8 sets, daily range): BP systolic 145–166; BP diastolic 72–94; PULSE 79–108; TEMP 36.4–37.2; O2SAT 92–96; Ht 154.9 cm; Wt 87.0 kg
[~2017-05-08] VITALS: Ht 154.9 cm; Wt 87.0 kg
[~2017-05-08 06:03] MED LIST changes: -POLYSOL4 OP
--- NOTE | 2017-05-08 06:46 | EMERGENCY ROOM VISIT NOTE ---
History Report prepared by Abdirahman: Ijeoma Womack Under the Supervision of: Dr. Danny Smith M.D. First contact with patient: 06:36 Chief Complaint: SHORTNESS OF BREATH Stated Complaint: SHORTNESS OF BREATH Nursing Triage Summary: Pt brought in by EMS with SOB. Pt was discharged a week ago with SOB and thoracentesis of left lung. Denies any chest pain. O2 sat 86% on RA. History of Present Illness The patient is a 76 year old white female with a past medical history of CHF, CML and atrial fibrillation on blood thinners who presents to the ED with a cc of worsening shortness of breath beginning 6 weeks LEARNING SUPPORT SPECIALIST. She was brought to the ED via EMS and reports she was recently discharged from [facility] after a 4 day stay, and was sent home from [facility] 1 week ago after a 7 day stay. Her O2 was 86% on RA. 2L NC O2 provides some relief. Positive worsening symptoms on exertion. Negative cough, fevers, chills, chest pain, nausea, vomiting, diarrhea, recent changes to medications, swelling in the legs , weight gain. The patient did not take any of her morning medications yet this morning. Source of History: patient Onset: 6 weeks LEARNING SUPPORT SPECIALIST Position: chest Timing: worsening Modifying Factors (Relieving): oxygen Associated Symptoms: No fevers, No chills, No chest pain, No nausea, No vomiting, No diarrhea Review of Systems See HPI for pertinent positives and negatives. A total of ten systems were reviewed and were otherwise negative. Past Medical & Surgical Medical Problems: (1) Acute diastolic CHF (congestive heart failure) (2) Afib (3) Atrial Fibrillation (4) CML (chronic myelocytic leukemia) Family History Breast Cancer DAUGHTER, Lung Disease FATHER, Rheumatic Heart Disease MOTHER, Social History Smoking Status: Never Smoker Alcohol Use: none Drug Use: none Marital Status: Housing Status: lives with family Occupation Status: retired Current/Historical Medications Scheduled Acetaminophen (Tylenol), 1,000 MG PO AMHS Atorvastatin (Lipitor), 10 MG PO QPM Cyanocobalamin (Vitamin B-12), 500 MCG SL DAILY Diltiazem Hcl Ext Rel (Tiazac), 360 MG PO QAM Edoxaban Tosylate (Savaysa), 30 MG PO DAILY@1800 Furosemide (Lasix), 40 MG PO DAILY Metoprolol Succinate (Toprolxl (Toprol-Xl), 200 MG PO QAM Potassium Chloride (Micro-K Ext Rel), 10 MEQ PO QAM Scheduled PRN Polyethylene Glycol-Propylene (Systane), 1 DROPS OP UD PRN for PRN Allergies Coded Allergies: No Known Allergies (Unverified , 05/08/17) Physical Exam Vital Signs Date Time Temp Pulse Resp B/P (MAP) Pulse Ox O2 Delivery O2 Flow Rate FiO2 05/08/17 07:53 100 22 138/62 96 Nasal Cannula 2.0 05/08/17 07:24 98 20 156/98 96 Nasal Cannula 2.0 05/08/17 07:18 110 22 146/79 96 Nasal Cannula 2.0 05/08/17 07:14 123 22 170/66 96 Nasal Cannula 2.0 05/08/17 07:13 130 170/66 05/08/17 06:35 131 05/08/17 06:18 93 Nasal Cannula 2.0 05/08/17 06:18 86 Room Air 05/08/17 06:10 86 Room Air 05/08/17 06:06 36.3 137 28 181/73 86 Room Air Physical Exam GENERAL: Awake, alert, well-appearing, in mild distress HENT: Normocephalic, atraumatic. Wearing NC. EYES: Normal conjunctiva. Sclera non-icteric. NECK: Supple. No nuchal rigidity. FROM. RESPIRATORY: Bibasilar crackles, no rhonchi or wheezing CARDIAC: Tachycardic and irregular, no MRG ABDOMEN: Soft, NTND, BS+ MSK: No chest wall TTP, 1-2+ pitting edema in the bilateral LE, no asymmetry, no erythema or calor of the legs NEURO: GCS 15, CN 2-12 intact, moves all 4s on command SKIN: No rash or jaundice noted. Medical Decision & Procedures ER Provider Diagnostic Interpretation: Radiology results as stated below per my review and radiologist interpretation: CHEST ONE VIEW PORTABLE CLINICAL HISTORY: EVALUATE RESPIRATORY DISTRESS.DYSPNEA chest pain COMPARISON STUDY: 04/29/2017 FINDINGS: Interval development of congestive heart failure. Prominent pulmonary vasculature. Bilateral pleural effusions. Coronary megaly. IMPRESSION: Congestive heart failure. The above report was generated using voice recognition software. It may contain grammatical, syntax or spelling errors. Electronically signed by: Bob Gould M.D. 05/08/2017 7:35 AM Laboratory Results 05/08/17 06:25 Red Blood Count 3.90, Mean Corpuscular Volume 89.5, Mean Corpuscular Hemoglobin 27.7, Mean Corpuscular Hemoglobin Concent 30.9, Mean Platelet Volume 10.7, Neutrophils (%) (Auto) 82.9, Lymphocytes (%) (Auto) 7.5, Monocytes (%) (Auto) 8.6, Eosinophils (%) (Auto) 0.6, Basophils (%) (Auto) 0.2, Neutrophils # (Auto) 10.38, Lymphocytes # (Auto) 0.94, Monocytes # (Auto) 1.07, Eosinophils # (Auto) 0.07, Basophils # (Auto) 0.02 05/08/17 06:25 05/08/17 07:50 Test 05/08/17 06:25 05/08/17 06:49 05/08/17 07:33 05/08/17 07:50 White Blood Count 12.50 K/uL (4.8-10.8) Red Blood Count 3.90 M/uL (4.2-5.4) Hemoglobin 10.8 g/dL (12.0-16.0) Hematocrit 34.9 % (37-47) Mean Corpuscular Volume 89.5 fL (80-100) Mean Corpuscular Hemoglobin 27.7 pg (25-34) Mean Corpuscular Hemoglobin Concent 30.9 g/dl (32-36) Platelet Count 333 K/uL (130-400) Mean Platelet Volume 10.7 fL (7.4-10.4) Neutrophils (%) (Auto) 82.9 % Lymphocytes (%) (Auto) 7.5 % Monocytes (%) (Auto) 8.6 % Eosinophils (%) (Auto) 0.6 % Basophils (%) (Auto) 0.2 % Neutrophils # (Auto) 10.38 K/uL (1.4-6.5) Lymphocytes # (Auto) 0.94 K/uL (1.2-3.4) Monocytes # (Auto) 1.07 K/uL (0.11-0.59) Eosinophils # (Auto) 0.07 K/uL (0-0.5) Basophils # (Auto) 0.02 K/uL (0-0.2) RDW Standard Deviation 52.0 fL (36.4-46.3) RDW Coefficient of Variation 16.1 % (11.5-14.5) Immature Granulocyte % (Auto) 0.2 % Immature Granulocyte # (Auto) 0.02 K/uL (0.00-0.02) Anion Gap 6.0 mmol/L (3-11) Est Creatinine Clear Calc Drug Dose 28.0 ml/min Estimated GFR () 32.2 Estimated GFR (Non- 27.8 BUN/Creatinine Ratio 17.6 (10-20) Calcium Level 9.0 mg/dl (8.5-10.1) Phosphorus Level 2.8 mg/dl (2.5-4.9) Total Bilirubin 0.3 mg/dl (0.2-1) Alanine Aminotransferase (ALT/SGPT) 26 U/L (12-78) Alkaline Phosphatase 95 U/L (45-117) Troponin I < 0.015 ng/ml (0-0.045) Pro-B-Type Natriuretic Peptide 5504 pg/ml (0-1800) Total Protein 7.5 gm/dl (6.4-8.2) Albumin 3.4 gm/dl (3.4-5.0) Globulin 4.1 gm/dl (2.5-4.0) Albumin/Globulin Ratio 0.8 (0.9-2) Bedside Troponin I 0.030 ng/ml (0-0.045) Urine Color YELLOW Urine Appearance CLEAR (CLEAR) Urine pH 5.0 (4.5-7.5) Urine Specific [place] 1.016 (1.000-1.030) Urine Protein 1+ (NEG) Urine Glucose (UA) NEG (NEG) Urine Ketones NEG (NEG) Urine Occult Blood 3+ (NEG) Urine Nitrite NEG (NEG) Urine Bilirubin NEG (NEG) Urine Urobilinogen NEG (NEG) Urine Leukocyte Esterase SMALL (NEG) Urine WBC (Auto) 5-10 /hpf (0-5) Urine RBC (Auto) >30 /hpf (0-4) Urine Hyaline Casts (Auto) 1-5 /lpf (0-5) Urine Epithelial Cells (Auto) 10-20 /lpf (0-5) Urine Bacteria (Auto) NEG (NEG) Prothrombin Time 12.7 SECONDS (9.0-12.0) Prothromb Time International Ratio 1.2 (0.9-1.1) Activated Partial Thromboplast Time 26.0 SECONDS (21.0-31.0) Partial Thromboplastin Ratio 1.0 Magnesium Level 2.6 mg/dl (1.8-2.4) Aspartate Amino Transf (AST/SGOT) 17 U/L (15-37) Thyroid Stimulating Hormone (TSH) 2.590 uIu/ml (0.300-4.500) Laboratory results reviewed by me Medications Administered Medications (Trade) Dose Ordered Sig/Vesna Route Start Time Stop Time Status Last Admin Dose Admin Furosemide 20 mg/ Syringe 2 ml @ 4 mls/min ONE ONCE IV 05/08/17 07:00 05/08/17 07:01 DC 05/08/17 07:14 4 MLS/MIN Metoprolol Tartrate (Lopressor Iv) 5 mg NOW STAT IV 05/08/17 06:53 05/08/17 06:57 DC 05/08/17 07:13 5 MG Metoprolol Succinate (Toprol Xl Tab) 200 mg NOW STAT PO 05/08/17 06:53 05/08/17 06:57 DC 05/08/17 07:39 200 MG Diltiazem HCl (Cardizem Cd Cap) 300 mg ONE STAT PO 05/08/17 08:29 05/08/17 08:40 DC 05/08/17 08:51 300 MG Furosemide (Lasix Inj) 20 mg NOW STAT IV 05/08/17 08:29 05/08/17 08:40 DC 05/08/17 08:50 20 MG ECG Per My Interpretation Indication: SOB/dyspnea Rate (beats per minute): 128 Rhythm: atrial fibrillation (with RVR) Findings: LBBB, other (wide QRS, normal axis) Comparison ECG Date: Rate has changed, otherwise no significant changes from EKG on 04/26/17 Change: Patient's electrocardiogram interpreted by me. ED Course 0641: The patient was evaluated in room B9. A complete history and physical exam was performed. 0744: I discussed the patients case with Dr. Toscano, [facility] Hospitalist. The patient will be further evaluated. 0750: I reevaluated the patient. She is resting comfortably. I discussed my recommendation she remain in the hospital for further evaluation and management and she verbalized complete understanding and agreement. Medical Decision The patient is a 76 year old white female with a past medical history of CHF, CML and atrial fibrillation on blood thinners who presents to the ED with a cc of worsening shortness of breath beginning 6 weeks LEARNING SUPPORT SPECIALIST. Triage Nursing notes reviewed. The patient's presentation and history were concerning for shortness of breath. Differential diagnosis: Etiologies such as infections, reactive airway disease, pneumonia, pneumothorax , COPD, CHF, cardiac ischemia, pulmonary embolism, musculoskeletal, gastrointestinal, as well as others were entertained. Prior records were reviewed. The patient did have a recent hospital admission where she had A. fib with RVR, a thoracentesis with drainage of 1200 cc from the right chest, the patient was taken off of her CML medication. Patient states that she has had shortness of breath. Patient states has been ongoing for about 5-6 weeks. Patient states that this has been persistent. Patient states that it is fairly constant although at rest she seems to be okay. Patient was recently placed on oxygen. Patient denies any prior history of DVT or PE. Exam the patient does have some labored breathing, bibasilar crackles, and she does have some lower extremity swelling. Patient did not take her morning medications. Patient did have blood work completed, EKG, troponin, chest x-ray, BNP. Patient does have some chronic CKD. Patient's BNP is mildly elevated. Patient was given her home dose of Toprol 200, Lopressor 5, and Lasix 20. Patient's white count is 12,000. Patient does have chronic stable anemia. Patient did have a chest x-ray completed. Chest x-ray consistent with CHF and does have some likely pleural effusions. Given the patient's A. fib with RVR which did improve patient's shortness of breath and CHF exacerbation I believe the patient would benefit from further evaluation and treatment. I did discuss case with the on-call hospitalist who agreed to further evaluate and treat the patient. Medication Reconcilliation Current Medication List: was personally reviewed by me Blood Pressure Screening Patient's blood pressure: Elevated blood pressure The patients elevated blood pressure will be further managed by the inpatient hospital medicine team. Consults Time Called: 07 Consulting Physician: Dr. Toscano, [facility] Hospitalist Returned Call: [phone] I discussed the patients case with Dr. Toscano [facility] Hospitalist. The patient will be further evaluated. Impression Primary Impression: Atrial fibrillation with RVR Additional Impressions: Acute Diastolic CHF CML (chronic myelocytic leukemia) Anemia CKD (chronic kidney disease) Pleural effusion Critical Care I have personally spent greater than 47 minutes of critical care time in the direct management of this patient. This includes bedside care, interpretation of diagnostic studies, and testing, discussion with consultants, patient, and family members, and other required patient management activities. This 47 minutes is in excess of all separately billable procedures. Scribe Attestation The scribe's documentation has been prepared under my direction and personally reviewed by me in its entirety. I confirm that the note above accurately reflects all work, treatment, procedures, and medical decision making performed by me. Departure Information Dispostion Being Evaluated By Hospitalist Referrals Lopez Dahl M.D. (PCP) Patient Instructions My [facility] Problem Qualifiers Additional Impressions: Anemia Anemia type: unspecified type Qualified Codes: D64.9 - Anemia, unspecified CKD (chronic kidney disease) Chronic kidney disease stage: stage 4 (severe) Qualified Codes: N18.4 - Chronic kidney disease, stage 4 (severe)
[2017-05-08] MEDS ORDERED: METOPROLOL TARTRATE 1 MG/ML VIAL IV STA (06:53)
[2017-05-08] MEDS ORDERED: METOPROLOL SUCC 50MG EXT REL TAB PO STA (06:53)
[2017-05-08] MEDS ORDERED: FUROSEMIDE INJ 20 MG in SYRINGE 0 ML IV ONE (07:00)
[2017-05-08 07:01] LABS: BASO % 0.2 %; BASO ABS # 0.02 K/uL (0-0.2); EOS % 0.6 %; EOS ABS # 0.07 K/uL (0-0.5); HEMATOCRIT 34.9 % (37-47); HEMOGLOBIN 10.8 g/dL (12.0-16.0); IG# 0.02 K/uL (0.00-0.02); LYMPH % 7.5 %; LYMPH ABS # 0.94 K/uL (1.2-3.4); MEAN CELL VOLUME 89.5 fL (80-100); MEAN CORPUSCULAR HEMOGLOBIN 27.7 pg (25-34); MEAN CORPUSCULAR HGB CONC 30.9 g/dl (32-36); MEAN PLATELET VOLUME 10.7 fL (7.4-10.4); MONO % 8.6 %; MONO ABS # 1.07 K/uL (0.11-0.59); NEUT % 82.9 %; NEUT ABS # 10.38 K/uL (1.4-6.5); PLATELET COUNT 333 K/uL (130-400); RED CELL DISTRIBUTION WIDTH CV 16.1 % (11.5-14.5)
[2017-05-08 07:17] LABS: ALBUMIN 3.4 gm/dl (3.4-5.0); ALKALINE PHOSPHATASE 95 U/L (45-117); ALT/SGPT 26 U/L (12-78); BLOOD UREA NITROGEN 31 mg/dl (7-18); CARBON DIOXIDE 27 mmol/L (21-32); CREATININE 1.74 mg/dl (0.60-1.20); GLUCOSE 132 mg/dl (70-99); PHOSPHORUS 2.8 mg/dl (2.5-4.9); SODIUM 145 mmol/L (136-145); TOTAL PROTEIN 7.5 gm/dl (6.4-8.2)
[2017-05-08] MEDS ORDERED: FRS/40 PO (07:31)
--- NOTE | 2017-05-08 07:36 | DIAGNOSTIC IMAGING REPORT ---
CHEST ONE VIEW PORTABLE CLINICAL HISTORY: EVALUATE RESPIRATORY DISTRESS.DYSPNEA chest pain COMPARISON STUDY: 04/29/2017 FINDINGS: Interval development of congestive heart failure. Prominent pulmonary vasculature. Bilateral pleural effusions. Coronary megaly. IMPRESSION: Congestive heart failure. The above report was generated using voice recognition software. It may contain grammatical, syntax or spelling errors. Electronically signed by: Bob Gould M.D. 05/08/2017 7:35 AM Dictated Date/Time: 05/08/2017 7:35 AM
[2017-05-08 08:06] LABS: INR 1.2 (0.9-1.1)
[2017-05-08 08:13] LABS: POTASSIUM 4.3 mmol/L (3.5-5.1)
--- NOTE | 2017-05-08 08:17 | History and Physical ---
History & Physical Date & Time of Service: May 08, 2017 at 07:57 Chief Complaint: Shortness Of Breath Primary Care Physician: Lopez Dahl M.D. History of Present Illness Source: patient, spouse 76yo female with CML, chronic diastolic CHF, and CKD stage 4 who presents this AM with ongoing & worsening dyspnea. She was just hospitalized at [facility] for possible CHF / volume overload as well as a large left-sided pleural effusion s/p thoracentesis. When she left the hospital on 04/30 she states she was "weak and still short of breath." She has had noticeable dyspnea on exertion at home. Yesterday her PCP prescribed O2 for her. She used this all night last pm without improvement in her symptoms. She had orthopnea last night and ultimately slept in her chair upright to get comfortable. Has not been checking her weights at home. Has been compliant with all of her medications but did not have any of her home meds prior to coming to the ER this morning Denies excessive fluid or salt consumption. She has had poor appetite "for a while" and did not eat well post-discharge. In the ER today was found to be in rapid a. fib and was given her PO toprol xl as well as IV lopressor. 20mg IV lasix x 1 was given but she only voided once with such. Past Medical/Surgical History PMH: 1. CML - dx 2007 [facility] 2. chronic diastolic CHF 3. atrial fibrillation 4. LBBB 5. CKD stage 4 6. obesity PSH: 1. appendectomy 2. breast ca s/p lumpectomy (left) 3. YONNY, unilateral oophorectomy 4. b/l cataract extraction 5. right TKR Family History Breast Cancer DAUGHTER, Lung Disease FATHER, Rheumatic Heart Disease MOTHER, Social History Smoking Status: Never Smoker Smokeless Tobacco Use: No Alcohol Use: none Drug Use: none Marital Status: (lives with in [place]; had 3 daughters 1 of whom is ) Housing status: lives with significant other Occupational Status: retired (secretarial work) Allergies Coded Allergies: No Known Allergies (Unverified , 05/08/17) Home Medications Scheduled Acetaminophen (Tylenol), 1,000 MG PO AMHS Atorvastatin (Lipitor), 10 MG PO QPM Cyanocobalamin (Vitamin B-12), 500 MCG SL DAILY Diltiazem Hcl Ext Rel (Tiazac), 360 MG PO QAM Edoxaban Tosylate (Savaysa), 30 MG PO DAILY@1800 Furosemide (Lasix), 40 MG PO DAILY Metoprolol Succinate (Toprolxl (Toprol-Xl), 200 MG PO QAM Potassium Chloride (Micro-K Ext Rel), 10 MEQ PO QAM Scheduled PRN Polyethylene Glycol-Propylene (Systane), 1 DROPS OP UD PRN for PRN Review of Systems Constitutional: + weakness, + fatigue, No fever, No chills, No weight loss Eyes: No worsening of vision ENT: No nasal symptoms, No sore throat, No trouble swallowing Respiratory: + shortness of breath, + dyspnea on exertion, + dyspnea at rest, No cough, No sputum, No hemoptysis Cardiovascular: + orthopnea, + PND, + edema, No chest pain, No palpitations Abdomen: + nausea, No pain, No vomiting, No diarrhea, No constipation Genitourinary - Female: No dysuria Neurologic: No numbness/tingling Psychiatric: No depression symptoms, No anxiety Endocrine: + fatigue Hematologic / Lymphatic: No abnormal bleeding/bruising Integumentary: No rash Physical Exam Vital Signs Date Time Temp Pulse Resp B/P (MAP) Pulse Ox O2 Delivery O2 Flow Rate FiO2 05/08/17 07:53 100 22 138/62 96 Nasal Cannula 2.0 05/08/17 07:24 98 20 156/98 96 Nasal Cannula 2.0 05/08/17 07:18 110 22 146/79 96 Nasal Cannula 2.0 05/08/17 07:14 123 22 170/66 96 Nasal Cannula 2.0 05/08/17 07:13 130 170/66 05/08/17 06:35 131 05/08/17 06:18 93 Nasal Cannula 2.0 05/08/17 06:18 86 Room Air 05/08/17 06:10 86 Room Air 05/08/17 06:06 36.3 137 28 181/73 86 Room Air General Appearance: + mild distress (with moving in the bed she has tachypnea and audible dyspnea) Head: normocephalic, atraumatic Eyes: PERRL (lens implants b/l ) ENT: TMs normal, pharynx normal Neck: supple, no adenopathy, thyroid normal, + JVD (mild, even sitting upright) Respiratory/Chest: + respiratory distress (tachypnea, mild accessory muscle use when she moves in the bed), + decreased breath sounds (bases, about 1/[address] up back, a little worse on left) Cardiovascular: no gallop, no murmur, normal peripheral pulses, + tachycardia, + irregularly irregular Abdomen/GI: normal bowel sounds, non tender, soft, no organomegaly Back: normal inspection Extremities/Musculoskelatal: + pedal edema (1+ b/l ) Neurologic/Psych: no motor/sensory deficits, alert, normal reflexes, oriented x 3 Skin: no rash Lymphatic: no adenopathy (cervical ) Diagnostics Laboratory Results Results Past 24 Hours Test 05/08/17 06:25 05/08/17 06:49 05/08/17 07:33 05/08/17 07:50 Range/Units White Blood Count 12.50 4.8-10.8 K/uL Red Blood Count 3.90 4.2-5.4 M/uL Hemoglobin 10.8 12.0-16.0 g/dL Hematocrit 34.9 37-47 % Mean Corpuscular Volume 89.5 80-100 fL Mean Corpuscular Hemoglobin 27.7 25-34 pg Mean Corpuscular Hemoglobin Concent 30.9 32-36 g/dl Platelet Count 333 130-400 K/uL Mean Platelet Volume 10.7 7.4-10.4 fL Neutrophils (%) (Auto) 82.9 % Lymphocytes (%) (Auto) 7.5 % Monocytes (%) (Auto) 8.6 % Eosinophils (%) (Auto) 0.6 % Basophils (%) (Auto) 0.2 % Neutrophils # (Auto) 10.38 1.4-6.5 K/uL Lymphocytes # (Auto) 0.94 1.2-3.4 K/uL Monocytes # (Auto) 1.07 0.11-0.59 K/uL Eosinophils # (Auto) 0.07 0-0.5 K/uL Basophils # (Auto) 0.02 0-0.2 K/uL RDW Standard Deviation 52.0 36.4-46.3 fL RDW Coefficient of Variation 16.1 11.5-14.5 % Immature Granulocyte % (Auto) 0.2 % Immature Granulocyte # (Auto) 0.02 0.00-0.02 K/uL Sodium Level 145 136-145 mmol/L Potassium Level 3.5-5.1 mmol/L Chloride Level 112 98-107 mmol/L Carbon Dioxide Level 27 21-32 mmol/L Anion Gap 6.0 3-11 mmol/L Blood Urea Nitrogen 31 7-18 mg/dl Creatinine 1.74 0.60-1.20 mg/dl Est Creatinine Clear Calc Drug Dose 28.0 ml/min Estimated GFR () 32.2 Estimated GFR (Non- 27.8 BUN/Creatinine Ratio 17.6 10-20 Random Glucose 132 70-99 mg/dl Calcium Level 9.0 8.5-10.1 mg/dl Phosphorus Level 2.8 2.5-4.9 mg/dl Magnesium Level 1.8-2.4 mg/dl Total Bilirubin 0.3 0.2-1 mg/dl Aspartate Amino Transf (AST/SGOT) 15-37 U/L Alanine Aminotransferase (ALT/SGPT) 26 12-78 U/L Alkaline Phosphatase 95 45-117 U/L Troponin I < 0.015 0-0.045 ng/ml Pro-B-Type Natriuretic Peptide 5504 0-1800 pg/ml Total Protein 7.5 6.4-8.2 gm/dl Albumin 3.4 3.4-5.0 gm/dl Globulin 4.1 2.5-4.0 gm/dl Albumin/Globulin Ratio 0.8 0.9-2 Bedside Troponin I 0.030 0-0.045 ng/ml Diagnostic Radiology cxr - my reading - poor lung volumes, b/l pleural effusions, interstitial edema EKG EKG - my reading - a. fib with RVR, LBBB (old) Impression Assessment and Plan 76yo female with CKD stage 4, chronic diastolic CHF, a. fib, LBBB, and CML followed by Dr. Selvin Wiggins - with multiple hospital stays recently for suspected CHF/volume overload - presents today with multiple ongoing pulmonary symptoms and acute hypoxic respiratory failure. Today she has evidence of acute /chronic diastolic CHF and it also appears her pleural effusions have returned/ worsened. 1. acute/chronic diastolic CHF - suspected - in light of renal dysfunction will try bumex in kye of lasix for her diuretic. Start 1mg IV BID. Could uncontrolled a. fib be contributing to decompensation? Other factor? I have spoken to Dr. Mckenzie from cardiology who will consult. Recheck limited echo to ensure that her pericardial effusion has not enlarged. Check left chest u/s to quantify her pleural effusion; willian if large enough and consider thoracentesis if she does not have adequate response w/ IV diuretics. Check TSH, r/o hypothyroid state. It is a little puzzling how poor she looks today in that her weight at 92kg is the same weight she was at time of hospital discharge a week ago. There was also some concern that her CML chemotherapy agent was causing edema/ volume overload but this has been on hold for some time. Lastly, she has only 1+ protein on u/a and her albumin is normal; thus, she does not have nephrotic syndrome or hypoalbuminemia contributing to volume overload. 2. a. fib with RVR - s/p IV lopressor in the ER along with her normal toprol xl. Will give her cardizem CD STAT. Continue both AV saul agents upon admission and defer any additional agent to cardiology. She is on a new anticoagulant - unsure if we have it on formulary. If we don't they could potentially bring it from home. 3. CKD stage 4 - creatinine today is similar to creatinine from her previous admission. Daily BMP. 4. LBBB - this is chronic. 5. leukocytosis, anemia - presumably 2nd to her CML. 6. CML - followed by Dr. Wiggins; her most recent chemotherapy agent is on hold - see discussion above in #1. Counts today seem acceptable/stable. 7. DVT proph - oral anticoagulant. 8. recent b/l pleural effusions - s/p thoracentesis on left - fluid studies reviewed - transudative by lytes criteria. Cytologies were negative. No evidence of infection. Presumably due to CHF. Repeat chest u/s today on left. Will need PT, OT while here due to deconditioning. Advanced Directives Existing Advance Directive: Yes Existing Living Will: Yes Resuscitation Status patient/ confirm she is level 5 DNR VTE Prophylaxis Will order VTE Prophylaxis: Yes Note total visit time about 70 minutes
[2017-05-08] MEDS ORDERED: DILTIAZEM HCL 300 MG CAPCR PO STA (08:29)
[2017-05-08] MEDS ORDERED: FUROSEMIDE 40 MG/4 ML VIAL IV STA (08:29)
[2017-05-08] MEDS ORDERED: ACETAMINOPHEN 325 MG TAB PO PRN (08:30)
[2017-05-08] MEDS ORDERED: ALUMINUM/MAGNESIUM/SIMETH (MAALOX MAX) 30 ML UDC PO PRN (08:30)
[2017-05-08] MEDS ORDERED: ONDANSETRON INJ 2 MG/ML 2 ML VIAL IV PRN (08:30)
[2017-05-08] MEDS ORDERED: MAGNESIUM HYDROXIDE SUSP 30 ML UDC PO PRN (08:30)
--- NOTE | 2017-05-08 10:09 | DIAGNOSTIC IMAGING REPORT ---
EFFUSION-CHEST/MEDIASTINUM CLINICAL HISTORY: LEFT SIDED PLEURAL EFFUSION pleural effusion TECHNIQUE: Ultrasound COMPARISON STUDY: None FINDINGS: Bilateral pleural effusions. Right effusion measures 1000 cc in terms of volume. It was not marked due to interposed lung. Left effusion measures 700 cc. This was marked for later thoracentesis. IMPRESSION: 1. 700 cc left effusion which was marked. 2. 1000 cc right effusion which was not marked due to interposed lung. The above report was generated using voice recognition software. It may contain grammatical, syntax or spelling errors. Electronically signed by: Bob Gould M.D. 05/08/2017 10:08 AM Dictated Date/Time: 05/08/2017 10:07 AM
[2017-05-08] MEDS ORDERED: POLYSOL4 OP (12:37)
[2017-05-08] MEDS: BUMETANIDE IV 1 MG in SYRINGE 0 ML IV SCH ×2 (12:40→17:03)
[2017-05-08] MEDS: ACETAMINOPHEN 500 MG TAB PO SCH ×2 (12:41→21:00)
[2017-05-08] MEDS: POTASSIUM CHLORIDE 10 MEQ TABCR PO SCH (12:41)
--- NOTE | 2017-05-08 14:12 | ECHOCARDIOGRAM REPORT ---
*NOTICE TO RECEIVING CONSTITUTION PARTY AGENCY This information is strictly Confidential and protected under [place] law. [place] law prohibits you from making any further disclosure of this information unless further disclosure is expressly permitted by the written consent of the person to whom it pertains or is authorized by law. A general authorization for the release of medical or other information is not sufficient for this purpose. Hospital accepts no responsibility if the information is made available to any other person, INCLUDING THE PATIENT. Interpretation Summary * Name: CHRISTIAN MARTIN Study Date: 05/08/2017 11:03 AM BP: 138/62 mmHg * Patient Location: C.2T\S\S229\S\2 HR: 108 * : 1940 (M/d/yyyy) Gender: Female Height: 61 in * Age: 76 yrs Ethnicity: CA Weight: 202 lb * Ordering Physician: Eugene Toscano * Referring Physician: UNKNOWN * Performed By: Ar Avelar RDCS * * Reason For Study: Pericardial effusion * BSA: 1.9 m2 * -- Conclusions -- * 1. Normal left ventricular size with low normal systolic function. Estimated EF 55%. Septal motion consistent with bundle branch block. No visualized regional wall motion abnormalities. Mild concentric left ventricular hypertrophy. * 2. Small, circumferential pericardial effusion without echocardiographic evidence of tamponade physiology. * 3. Pleural effusion. * 4. The left atrium is moderately dilated. * 5. Limited 2D echo with limited spectral Doppler as per request. * 6. Compared to prior study on 04/26/2017, pericardial effusion appears similar. Procedure Details * A two-dimensional transthoracic echocardiogram with M-mode and Doppler was performed. * The study was technically adequate. Left Ventricle * Normal left ventricular size with low normal systolic function. Estimated EF 55%. Septal motion consistent with bundle branch block. No visualized regional wall motion abnormalities. Mild concentric left ventricular hypertrophy. Right Ventricle * The right ventricle is normal in size and function. Atria * The left atrium is moderately dilated. * Right atrium not well visualized. Mitral Valve * There is moderate mitral annular calcification. Tricuspid Valve * The tricuspid valve is not well visualized. Aortic Valve * The aortic valve is not well visualized. Pulmonic Valve * The pulmonic valve is not well visualized. Great Vessels * The aortic root is normal size. Pericardium/Pleural * Small, circumferential pericardial effusion without echocardiographic evidence of tamponade physiology. * Pleural effusion. Great Vessels * IVC not well visualized. MMode 2D Measurements and Calculations IVSd 1.3 cm LVIDd 5.0 cm LVIDs 3.5 cm LVPWd 1.3 cm IVS/LVPW 1.1 FS 30.3 % EDV(Teich) 120.4 ml ESV(Teich) 51.3 ml EF(Teich) 57.4 % EDV(cubed) 127.9 ml ESV(cubed) 43.3 ml EF(cubed) 66.1 % LV mass(C)d 263.1 grams LV mass(C)dI 138.7 grams/m\S\2 SV(Teich) 69.1 ml SI(Teich) 36.4 ml/m\S\2 SV(cubed) 84.6 ml SI(cubed) 44.6 ml/m\S\2 Ao root diam 2.7 cm Ao root area 5.9 cm\S\2 Doppler Measurements and Calculations MV E max chon 115.4 cm/sec MV dec time 0.24 sec
--- NOTE | 2017-05-08 15:29 | CARDIOLOGY CONSULTATION ---
DATE OF CONSULTATION: 05/08/2017 TIME: 14:16 p.m. CONSULTING PHYSICIAN: Dr. Toscano. REASON FOR CONSULTATION: Acute on chronic diastolic congestive heart failure. HISTORY OF PRESENT ILLNESS: Ms. Samuels is a pleasant 76-year-old female with a history significant for atrial fibrillation, hypertension, pericardial effusion, pleural effusion status post thoracentesis, and a history of cardiomyopathy with normalized LV systolic function. 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 She was recently hospitalized on 04/24/2017 and discharged on 04/30/2017 when she presented with shortness of breath, which was thought to be secondary to large pleural effusion and Bosulif, one of her chemotherapy agents. She has had 2 recent hospitalizations, where she received intravenous diuretic therapy and then quickly became azotemic with no improvement of her symptoms, notably her shortness of breath. Initially, there was a concern about atrial fibrillation as she has a history of paroxysmal atrial fibrillation, but her current episode has been persistent. Given the fact, however, that she was having conversational dyspnea, it was felt that her rate controlled atrial fibrillation was not the cause of her symptoms and therefore that was postponed while she underwent thoracentesis and followup. She states that she felt much better after thoracentesis, but never completely felt back to baseline with her shortness of breath. Earlier this past week, she was seen by Dr. Dahl and supplemental oxygen was obtained for her. She felt so well yesterday that she actually did not use her supplemental oxygen and overnight became more acutely short of breath. She admits to orthopnea and shortness of breath with any exertion. She feels well only while sitting upright without movement. She denies chest pain, syncope, near syncope, or palpitations. She felt as though her abdomen was a bit more bloated. Her daughter agrees that her lower extremities are more edematous as well. As an outpatient, her Lasix was increased to 40 mg daily early earlier this week as well by her PCP, Dr. Dahl. She was seen by Dr. Candelaria this past week as well. We will discuss potential need for future PleurX catheter. She denies melena, hematochezia, or hematuria. She denies syncope, fevers, chills or other symptoms. REVIEW OF SYSTEMS: As above and review of systems otherwise negative/unremarkable. PAST MEDICAL HISTORY: 1. Atrial fibrillation. 2. Pericardial effusion. 3. Pleural effusion, status post thoracentesis. 4. Cardiomyopathy with normalized LV systolic function. 5. Breast cancer, status post chemotherapy/XRT and lumpectomy in 1991. 6. CML on Gleevec, which was changed to Bosulif, which was discontinued earlier this month. 7. Cardiomyopathy, resolved. INPATIENT MEDICATIONS: Include diltiazem 360 mg daily, metoprolol succinate 200 mg daily, Bumex 1 mg IV b.i.d., atorvastatin 10 mg daily, Eliquis 5 mg b.i.d., and potassium chloride 10 mEq daily. OUTPATIENT INPATIENT MEDICATIONS: Include diltiazem 360 mg daily, atorvastatin 10 mg daily, Lasix 40 mg daily, metoprolol succinate 200 mg daily, potassium chloride 10 mEq daily, and Savaysa 30 mg. ALLERGIES: No known drug allergies. SOCIAL HISTORY: Denies tobacco, alcohol or drug abuse. She is and lives with her . They have 3 daughters and several grandchildren. Her and daughter presented to the bedside today. FAMILY HISTORY: Mother had rheumatic heart disease and underwent aortic valve replacement and mitral valve repair. Father had lung issues. Sister had aortic valve replacement in her 50s. A daughter at the age of 52 with breast cancer. PHYSICAL EXAMINATION: VITAL SIGNS: Temperature 37.2 degrees, heart rate 79 beats per minute, respiratory rate 16, blood pressure 145/80 mmHg, and oxygen saturation 95% on 2 liters per nasal cannula. Weight 92 kg. GENERAL: No acute distress. She is alert and oriented. HEENT: Anicteric sclerae. NECK: No appreciable JVD. No hepatojugular reflux. No bruits. Normal carotid upstrokes bilaterally. CARDIAC EXAMINATION: PMI was nonpalpable. There was no ventricular heave. Irregularly irregular. Normal S1 and S2. There were no audible murmurs, rubs or gallops. LUNGS: Decreased breath sounds at the right base. Decreased breath sounds base to mid left lung moctezuma with some crackles in the mid left lung field. ABDOMEN: Soft, nontender, and nondistended. Normoactive bowel sounds. No bruits noted. EXTREMITIES: 1+ bilateral lower extremity edema. 2+ radial pulses bilaterally. 2+ dorsalis pedis pulses bilaterally. No cyanosis. PSYCHIATRIC: Affect appears appropriate. LABORATORY DATA: White blood cell count is 12.5, hemoglobin 10.8, and platelets 333. Sodium 145, potassium 4.3, BUN 31, and creatinine 1.74. Baseline creatinine ranges 1.3-1.8. TSH 2.59. Magnesium 2.6. AST 17 and ALT 26. Troponin 0.03 on point of care. Formal troponin is undetectable. ProBNP 5504. Albumin 3.4. INR is 1.2. Chest x-ray image personally reviewed. Bilateral pleural effusions. Chest ultrasound report reviewed, 700 mL left effusion and 1000 mL right effusion. Limited echocardiogram images reviewed. Small pericardial effusion without echocardiographic evidence of tamponade physiology. Pleural effusion. Low normal LV systolic function. ECG personally reviewed on presentation, demonstrating atrial fibrillation at 128 beats per minute with left bundle branch block. No significant change from 04/26/2017. Cardiac catheterization on 10/01/2008: Normal coronary arteries. EF 40%. PA pressure 44/22. PCWP 20. ASSESSMENT AND PLAN: 1. Acute on chronic diastolic congestive heart failure: She does appear to be hypervolemic with pleural effusions. Agree with more aggressive diuretics for now. Unfortunately, her 2 recent hospitalizations ended up having worsening renal function with increased diuretic. If she follows a similar pattern, would consider right heart catheterization early next week to further evaluate her filling pressures. 2. Pleural effusions: If no significant improvement, would consider pulmonology consultation to see if thoracentesis or PleurX catheter would help with her symptoms. 3. Atrial fibrillation: She has been well rate controlled on her outpatient medications. Would resume them for now. Continue anticoagulation for stroke risk reduction, but with a potential for right heart catheterization or thoracentesis, would hold oral anticoagulation and bridge with heparin. This was discussed with Dr. Toscano. 4. Pericardial effusion: Rather stable on echocardiogram imaging. Continue to follow. No echocardiographic evidence of tamponade physiology and she clinically does not appear to be in tamponade. 5. Disposition: Cardiology will continue to follow. The patient's care has been discussed with Dr. Toscano of the primary hospitalist service.
[2017-05-08] MEDS ORDERED: EDOXABAN TOSYLATE 30 MG PO SCH (18:00)
[2017-05-08] MEDS ORDERED: APIXABAN 2.5 MG TAB PO SCH (18:00)
[2017-05-08] MEDS: HEPARIN 25,000 UNIT/500ML D5W 500 ML IV SCH (18:25)
[2017-05-08] MEDS: ATORVASTATIN 10 MG TAB PO SCH (20:59)
[2017-05-09] VITALS (8 sets, daily range): BP systolic 111–164; BP diastolic 73–90; PULSE 70–92; TEMP 36.3–36.7; O2SAT 92–98
[2017-05-09 00:50] LABS: PTT PATIENT 84.4 SECONDS (21.0-31.0)
[2017-05-09] MEDS: POTASSIUM CHLORIDE 10 MEQ TABCR PO SCH (07:46)
[2017-05-09] MEDS: BUMETANIDE IV 1 MG in SYRINGE 0 ML IV SCH ×2 (07:56→17:25)
[2017-05-09] MEDS: METOPROLOL SUCC 50MG EXT REL TAB PO SCH (07:56)
[2017-05-09] MEDS: ACETAMINOPHEN 500 MG TAB PO SCH ×2 (07:56→20:24)
[2017-05-09] MEDS: DILTIAZEM HCL (TIAzac) 180 MG CAPCR PO SCH (07:57)
[2017-05-09 08:25] LABS: CALCIUM 9.2 mg/dl (8.5-10.1); CREATININE 1.45 mg/dl (0.60-1.20); POTASSIUM 4.1 mmol/L (3.5-5.1)
[2017-05-09 08:35] LABS: PTT PATIENT 77.6 SECONDS (21.0-31.0)
[2017-05-09] MEDS: HEPARIN 25,000 UNIT/500ML D5W 500 ML IV SCH (09:04)
--- NOTE | 2017-05-09 10:41 | Pulmonary Consultation ---
History General Date of Service: May 09, 2017. Stated Complaint: Acute Diastolic Chf, Atrial Fibrillation With Rvr HPI The patient is a 76 year old female who presents to [facility] with complaints of Acute Diastolic Chf, Atrial Fibrillation With Rvr. The patient's primary care provider is Lopez Dahl M.D.. Chief complaint: Bilateral pleural effusions Patient has been admitted for progressive dyspnea on exertion and a workup noted to have bilateral pleural effusions. Patient was also recently admitted from 04/24/2017 through 04/30/2017 with bilateral pleural effusions that underwent left-sided thoracentesis with 1200 cc removed on 04/29/2017 notably transudative via lights criteria. At this time the pathology as well as microbiology is also been within normal limits. Patient recently saw Dr. Jamal Candelaria in the clinic on 05/06/2017 and at that time was noted increasing shortness of breath and there was a discussion about repeat thoracentesis versus IPC placement. A chest x-ray at [facility] 05/02/2017 did show reaccumulation of her bilateral pleural effusions left greater than right. At the time of her admission the patient was also noted to be in atrial fibrillation with RVR. Of note the patient is also been introduced to supplemental oxygen secondary to increasing dyspnea. At this time the patient denies: Fever, chills, B type symptoms, pleurisy or classic cardiac chest pain. PmHx: CML, paroxysmal atrial fibrillation, chronic anemia, cardiomyopathy, chronic diastolic heart failure, breast cancer/status post chemo radiation and lumpectomy, hypertension, chronic kidney disease stage for creatinine clearance 28 Work-up Creatinine clearance: 28 BMP: 5504 APTT: 84.4 UA: Leukocyte Estrace small, WBC 5-10, RBC greater than 30 CXR compared to 04/29/2017: Increasing bilateral pleural effusions/ costophrenic angle blunting left greater than right CT chest 04/24/2017: Bilateral pleural effusions left greater than right, apical scarring versus pleural scarring Thoracentesis left-sided 04/29/2017 pH: 7.36 WBC: 654 Prot Ratio: 2.9/7.1= 41% LDH ratio: 93/217= 43% Glucose: 123 Amylase: 27 Chol: 21 Micro: No significant growth Pathology: No significant findings Active Problems 1. Abnormal chest x-ray with multiple lung nodules 2. Aortic regurgitation 3. Atrial fibrillation 4. Benign essential hypertension 5. Cardiomyopathy ( 6. Chronic anemia 7. Obesity 8. Left bundle branch block 9. Hypercholesterolemia 10. Chronic myelomonocytic leukemia 11. Dyspnea on exertion 12. External hemorrhoids 13. Familial hypercholesterolemia 14. Malignant neoplasm of breast 15. Menorrhagia 16. Parkinsonism 17. Pericardial effusion 18. Pernicious anemia 19. Transudative Pleural effusion 20. Sinusitis 21. TMJ (temporomandibular joint syndrome) 22. Vitamin B12 deficiency 23. Bilateral cataracts Surgical History 1. Appendectomy 2. Left lumpectomy 3. Right TKR 4. Salpingectomy Unilateral Left Side, YONNY 5. Total Abdominal Hysterectomy 6. Bilateral cataract extraction Social History Always uses seat belt Consumes alcohol occasionally Marital History - Currently /had 3 daughters but 1 has past Never smoker smoker Retired from [employer] work Family history Lung disease, rheumatic heart disease Outpatient Current Meds last visit 05/06/2017 1. Amoxicillin 500 MG Oral Capsule; TAKE 4 CAPSULES 1 hour prior to dental work 2. Savaysa 30 MG Oral Tablet; One pill daily instead of Xarelto; 3. Oxygen; 2 L via nasal cannula with walking 4. Furosemide 20 MG Oral Tablet; Two in the morning daily;Active Problems 1. Abnormal chest x-ray with multiple lung nodules (R91.8) 2. Abnormal glucose level (R73.09) 3. Acute sinusitis (J01.90) 4. Anemia (D64.9) 5. Aortic regurgitation (I35.1) 6. Atrial fibrillation (I48.91) 7. Benign essential hypertension (I10) 8. Cardiomyopathy (I42.9) 9. Chronic anemia (D64.9) 10. Chronic myelomonocytic leukemia (C93.10) 11. Dyspnea (R06.00) 12. Dyspnea on exertion (R06.09) 13. Encounter for screening mammogram for malignant neoplasm of breast (Z12.31) 14. External hemorrhoids (K64.4) 15. Facial hematoma (S00.83XA) 16. Facial hematoma, subsequent encounter (S00.83XD) 17. Familial hypercholesterolemia (E78.01) 18. Flu vaccine need (Z23) 19. Hypokalemia (E87.6) 20. Jittery (R45.0) 21. Malignant neoplasm of breast (C50.919) 22. Menorrhagia (N92.0) 23. Need for immunization against influenza (Z23) 24. Need for pneumococcal vaccination (Z23) 25. Parkinsonism (G20) 26. Pericardial effusion (I31.3) 27. Pernicious anemia (D51.0) 28. Pleural effusion (J90) 29. Postmenopausal atrophic vaginitis (N95.2) 30. Rib pain on left side (R07.81) 31. Sinusitis (J32.9) 32. TMJ (temporomandibular joint syndrome) (M26.609) 33. Traumatic hematoma of cheek (S00.83XA) 34. Vaginitis (N76.0) 35. Viral URI (J06.9) 36. Vitamin B12 deficiency (E53.8) Surgical History 1. History of Appendectomy 2. History of Breast Surgery Lumpectomy 3. History of Knee Replacement 4. History of Salpingectomy Unilateral Left Side 5. History of Total Abdominal Hysterectomy Social History Always uses seat belt Consumes alcohol occasionally (Z78.9) Marital History - Currently Never smoker Retired Current Out-patient Meds 1. Amoxicillin 500 MG Oral Capsule; TAKE 4 CAPSULES 1 hour prior to dental work ; 2. Savaysa 30 MG Oral Tablet; One pill daily instead of Xarelto; 3. Oxygen; 2 L via nasal cannula with walking 4. Furosemide 20 MG Oral Tablet; Two in the morning daily; 5. Metoprolol Succinate ER 200 MG Oral Tablet Extended Release ONCE DAILY 6. Atorvastatin Calcium 10 MG Oral Tablet; TAKE 1 TABLET DAILY 7. Potassium Chloride ER 10 MEQ Oral Capsule Extended Release; one pill daily with 8. Vitamin B-12 500 MCG Sublingual Tablet Sublingual; PLACE 1 TABLET Daily; 9. DilTIAZem HCl ER Beads 360 MG Oral Capsule Extended Release 24 Hour; TAKE 1 QD 10. Lactobacillus Oral Tablet; take one tablet daily x 7 days; 11. Systane Ultra 0.4-0.3 % Ophthalmic Solution; use 1 drop both eyes daily; 12. Tylenol Extra Strength 500 MG Oral Tablet; 2 tabs twice daily; Allergies 1. No Known Drug Allergies 5. Metoprolol Succinate ER 200 MG Oral Tablet Extended Release 24 Hour QD 6. Atorvastatin Calcium 10 MG Oral Tablet; TAKE 1 TABLET DAILY; 7. Potassium Chloride ER 10 MEQ Oral Capsule Extended Release; one pill daily with 8. Vitamin B-12 500 MCG Sublingual Tablet Sublingual; PLACE 1 TABLET Daily; 9. DilTIAZem HCl ER Beads 360 MG Oral Capsule Extended Release 24 Hour; TAKE 1 QD 10. Lactobacillus Oral Tablet; take one tablet daily x 7 days; 11. Systane Ultra 0.4-0.3 % Ophthalmic Solution; use 1 drop both eyes daily; 12. Tylenol Extra Strength 500 MG Oral Tablet; 2 tabs twice daily; Allergies 1. No Known Drug Allergies Historian: patient, caregiver, EMS Review of Systems Constitutional: reports: as stated in HPI Eyes: reports: no symptoms ENT: reports: no symptoms Cardiovascular: reports: as stated in HPI Respiratory: reports: as stated in HPI Gastrointestinal: reports: no symptoms Genitourinary - Female: reports: no symptoms Musculoskeletal: reports: no symptoms Integumentary: reports: no symptoms Neurologic: reports: no symptoms Psychiatric: reports: no symptoms Endocrine: no symptoms Hematologic / Lymphatic: no symptoms Allergic / Immunologic: no symptoms Past Medical History Past Medical History: Please refer to HPI Past Surgical History: Please refer to HPI Family History Breast Cancer DAUGHTER, Lung Disease FATHER, Rheumatic Heart Disease MOTHER, Please refer to HPI Social History Please refer to HPI Hx Tobacco Use In Past Year?: No Smoking Status: Never Smoker Marital status: (lives with in [place]; had 3 daughters 1 of whom is ) Housing status: lives with significant other Occupational Status: retired (secretarial work) Allergies Coded Allergies: No Known Allergies (Unverified , 05/08/17) Current Medications Reported Home Medications Medications Dose Route/Sig Max Daily Dose Days Date Category Lasix (Furosemide) 40 Mg Tab 40 Mg PO DAILY 05/08/17 Reported Vitamin B-12 (Cyanocobalamin) 500 Mcg Sub 500 Mcg SL DAILY 04/24/17 Reported Micro-K Ext Rel (Potassium Chloride) 10 Meq Capcr 10 Meq PO QAM 04/24/17 Reported Lipitor (Atorvastatin Calcium) 10 Mg Tab 10 Mg PO QPM 04/24/17 Reported Toprol-Xl (Metoprolol Succinate) 200 Mg Tabcr 200 Mg PO QAM 04/24/17 Reported Savaysa (Edoxaban Tosylate) 30 Mg Tab 30 Mg PO DAILY@1800 04/24/17 Reported Tylenol (Acetaminophen) 500 Mg Tab 1,000 Mg PO AMHS 04/24/17 Reported Systane (Polyethylene Glycol-Propylene) 1 Ashly Ashly 1 Drops OP UD PRN 04/24/17 Reported Tiazac (Diltiazem HCl) 360 Mg Capcr 360 Mg PO QAM 04/24/17 Reported Physical Physical Exam Vital Signs: Date Time Temp Pulse Resp B/P (MAP) Pulse Ox O2 Delivery O2 Flow Rate FiO2 05/09/17 08:00 92 Nasal Cannula 2.0 05/09/17 07:56 36.3 92 16 164/90 (114) 92 Nasal Cannula 2.0 05/09/17 04:00 Nasal Cannula 2.0 05/09/17 03:05 36.6 88 20 161/75 (103) 94 Nasal Cannula 2.0 05/08/17 23:59 Nasal Cannula 2.0 05/08/17 23:29 36.4 93 18 152/94 (113) 92 Nasal Cannula 2.0 05/08/17 20:35 36.4 108 18 166/94 (118) 94 Nasal Cannula 2.0 05/08/17 20:00 Nasal Cannula 2.0 05/08/17 16:00 94 Nasal Cannula 2.0 05/08/17 15:28 36.4 85 18 163/85 (111) 95 Nasal Cannula 2.0 05/08/17 12:16 37.2 79 16 145/80 (101) 95 Nasal Cannula 05/08/17 12:00 96 Nasal Cannula 2.0 05/08/17 10:32 36.4 91 22 152/72 (98) 95 Nasal Cannula 2.0 General Appearance: WELL-APPEARING, mild distress Head: NORMOCEPHALIC, ATRAUMATIC Eyes: PERRLA, NO DISCHARGE, EOMI, SCLERAE NORMAL ENT: NORMAL EAR EXAM, NORMAL NASAL EXAM, NORMAL MOUTH EXAM, NORMAL THROAT EXAM , NORMAL DENTAL EXAM Neck: NORMAL RANGE OF MOTION, NO TENDERNESS, TRACHEA MIDLINE, NO STRIDOR, SUPPLE Respiratory: other (Decreased breath sounds at the bases with dullness to percussion ultrasound shows bilateral pleural effusions left greater than right with B-lines approximately two thirds of the hemithoraces bilaterally) Cardiovasular: irregular rate, abnormal rhythm Abdomen: NON TENDER, NORMAL BOWEL SOUNDS, NO REBOUND, NO MASSES, NO GUARDING, NO ORGANOMEGALY Genitourinary - Female: EXTERNAL GENITALIA NORMAL Back: NORMAL INSPECTION, NO MIDLINE TENDERNESS, NO CVA TENDERNESS, NO PARAVERTEBRAL TTP Upper Extremities: NO EDEMA, NO DEFORMITY, NORMAL ROM Edema: Bilateral LE (2+) Pulses: carotid (R) (1+), carotid (L) (1+), dorsalis pedis (R) (1+), dorsalis pedis (L) (1+) Neuro: ALERT, ORIENTED x 3, NORMAL MOTOR EXAM, NORMAL SENSATION, NORMAL CEREBELLAR EXAM Reflexes: biceps (R) (2+), bicpes (L) (2+), achilles (R) (2+), achilles (L) (2+ ) Babinski Testing: right (downgoing), left (downgoing) Psychiatric: NORMAL AFFECT, NO SUICIDAL IDEATION Diagnostics Labs Results Past 24 Hours Test 05/09/17 00:15 05/09/17 07:40 Range/Units Activated Partial Thromboplast Time 84.4 77.6 21.0-31.0 SECONDS Partial Thromboplastin Ratio 3.2 3.0 Sodium Level 143 136-145 mmol/L Potassium Level 4.1 3.5-5.1 mmol/L Chloride Level 108 98-107 mmol/L Carbon Dioxide Level 31 21-32 mmol/L Anion Gap 4.0 3-11 mmol/L Blood Urea Nitrogen 26 7-18 mg/dl Creatinine 1.45 0.60-1.20 mg/dl Est Creatinine Clear Calc Drug Dose 33.2 ml/min Estimated GFR () 40.2 Estimated GFR (Non- 34.6 BUN/Creatinine Ratio 17.7 10-20 Random Glucose 117 70-99 mg/dl Calcium Level 9.2 8.5-10.1 mg/dl Diagnostic Radiology Please refer to HPI EKG Atrial fibrillation with left bundle branch block rate 128 Impression Assessment and Plan 76-year-old female admitted for shortness of breath and recurrent bilateral pleural effusions: 1. Bilateral pleural effusions: The etiology of her pleural effusions is most likely volume overload with diastolic cardiac dysfunction as well as A. fib with RVR and chronic renal insufficiency with a creatinine clearance of only 28. Recent thoracocentesis on 04/29/2017 on the left side did give clinical benefit to the patient. We did discuss moving forward with bilateral thoracentesis at this time. The patient has agreed to this. What we talked about was performing a left-sided thoracentesis initially tomorrow morning and if the patient noted dramatic benefit after 2 hour window then performing a right-sided thoracentesis after that. Patient is currently on a factor X inhibitor which only requires a 48 hour Holter time before procedures can be performed based off MD Macias preprocedural algorithm management for anticoagulation algorithm.
--- NOTE | 2017-05-09 10:44 | Hospitalist Progress Note ---
Hospitalist Progress Note Date of Service May 09, 2017. Subjective Pt evaluation today including: conversation w/ patient PO Intake: low appetite Voiding: no voiding problems Patient reports not short of breath at rest, but continues with [place] denies chest pain she has poor appetite, is making urine, feels like she could move her bowels today. Denies headache or abdominal pain. Thinks that her leg swelling is the same as yesterday All Other Systems: Reviewed and Negative Objective Vital Signs Date Time Temp Pulse Resp B/P (MAP) Pulse Ox O2 Delivery O2 Flow Rate FiO2 05/09/17 08:00 92 Nasal Cannula 2.0 05/09/17 07:56 36.3 92 16 164/90 (114) 92 Nasal Cannula 2.0 05/09/17 04:00 Nasal Cannula 2.0 05/09/17 03:05 36.6 88 20 161/75 (103) 94 Nasal Cannula 2.0 05/08/17 23:59 Nasal Cannula 2.0 05/08/17 23:29 36.4 93 18 152/94 (113) 92 Nasal Cannula 2.0 05/08/17 20:35 36.4 108 18 166/94 (118) 94 Nasal Cannula 2.0 05/08/17 20:00 Nasal Cannula 2.0 05/08/17 16:00 94 Nasal Cannula 2.0 05/08/17 15:28 36.4 85 18 163/85 (111) 95 Nasal Cannula 2.0 05/08/17 12:16 37.2 79 16 145/80 (101) 95 Nasal Cannula 05/08/17 12:00 96 Nasal Cannula 2.0 05/08/17 10:32 36.4 91 22 152/72 (98) 95 Nasal Cannula 2.0 Physical Exam General Appearance: WD/WN, no apparent distress (Sitting in bedside chair) Eyes: normal inspection, sclerae normal ENT: hearing grossly normal, pharynx normal Neck: supple, no adenopathy, thyroid normal, no JVD, trachea midline Respiratory/Chest: no respiratory distress, no accessory muscle use, + decreased breath sounds (At the lower and middle lung moctezuma bilaterally, otherwise clear) Cardiovascular: no murmur, + irregularly irregular (With regular rate), + pertinent finding (1-2+ pitting edema bilateral legs) Abdomen: normal bowel sounds, non tender, soft Extremities: no calf tenderness Neurologic/Psychiatric: alert, normal mood/affect, oriented x 3 Skin: normal color, warm/dry, no rash, + pertinent finding (Has 3 blue tattooed dots on left anterior chest from previous XRT) Laboratory Results Last 24 Hours Test 05/09/17 00:15 05/09/17 07:40 Activated Partial Thromboplast Time 84.4 SECONDS 77.6 SECONDS Partial Thromboplastin Ratio 3.2 3.0 Sodium Level 143 mmol/L Potassium Level 4.1 mmol/L Chloride Level 108 mmol/L Carbon Dioxide Level 31 mmol/L Anion Gap 4.0 mmol/L Blood Urea Nitrogen 26 mg/dl Creatinine 1.45 mg/dl Est Creatinine Clear Calc Drug Dose 33.2 ml/min Estimated GFR () 40.2 Estimated GFR (Non- 34.6 BUN/Creatinine Ratio 17.7 Random Glucose 117 mg/dl Calcium Level 9.2 mg/dl Assessment and Plan This patient is a 76yo female with CKD stage 3-4, chronic diastolic CHF, a. 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 On admission, she has evidence of acute/ chronic diastolic CHF and it also appears her bilateral pleural effusions have returned/worsened. 1. acute/chronic diastolic CHF/bilateral pleural effusions/small pericardial effusion suspected - in light of renal dysfunction will try bumex in lieu of lasix for her diuretic. Could uncontrolled a. fib be contributing to decompensation (rapid on admission) There was also some concern that her CML chemotherapy agent was causing edema/ volume overload but this has been on hold for some time. She has only 1+ protein on u/a and her albumin is normal; thus, she does not have nephrotic syndrome or hypoalbuminemia contributing to volume overload. TSH normal. Does have a remote history of breast cancer, CT chest 3 shows possible XRT- induced changes of left breast, no lymphadenopathy but was without IV- possibility of malignant effusion-although cytology from previous thoracentesis 2 weeks ago was negative Appreciate cardiology consultation 1.6 L and weight is down by 2 kg Echocardiogram with EF 55%, small pericardial effusion, she has moderate left atrial enlargement but no mention of diastolic dysfunction on echo Chest ultrasound confirms 1000 mL's in pleural effusion on the right and 700 on the left -Continue Bumex 1mg IV BID. -Pulmonology consulted and plans on doing bilateral thoracenteses tomorrow and will await further recommendations -Cardiology considering right heart catheterization this week 2. a. fib with RVR - s/p IV lopressor in the ER along with her normal toprol xl. Now controlled rates. On heparin drip as a bridge while holding home anticoagulation She is on a new anticoagulant called Savaysa (XA inhibitor) - unsure if we have it on formulary. If we don't they could potentially bring it from home. -Continue diltiazem, metoprolol -Continue heparin drip 3. CKD stage 3-4 - creatinine improved today -Follow PRP -Renally dose medications -Avoid nephrotoxins 4. LBBB - this is chronic. 5. leukocytosis, anemia - presumably 2nd to her CML. CML - followed by Dr. Wiggins; her most recent chemotherapy agent is on hold - see discussion above in #1. Counts here seem acceptable/stable. DVT proph -heparin drip Disposition-will need PT, OT while here due to deconditioning. -Continue on telemetry
--- NOTE | 2017-05-09 13:06 | CARDIOLOGY PROGRESS NOTE ---
DATE: 05/09/2017 TIME: 11:31 a.m. SUBJECTIVE: She feels better than yesterday from a breathing standpoint. She denies chest pain, syncope, near syncope, palpitations. She has tolerated diuretic therapy. She was evaluated by pulmonology and thoracentesis is being planned for tomorrow. OBJECTIVE: VITAL SIGNS: Temperature is 36.3 degrees, heart rate 92 beats per minute, respiration rate 16, blood pressure 164/90 mmHg, oxygen saturation 92% on 2 liters per nasal cannula. I's and O's negative 1 liter yesterday, weight is 90.4 kg. GENERAL: No acute distress. She is alert. NECK: No appreciable JVD. CARDIAC: No ventricular heave, irregularly irregular, 2/6 early peaking systolic ejection murmur best heard at the right upper sternal border. No rubs or gallops. LUNGS: Decreased breath sounds, bilateral base to mid lung moctez[place], more so on the left. ABDOMEN: Soft, nontender, nondistended. Normoactive bowel sounds. EXTREMITIES: 1+ bilateral lower extremity edema. No cyanosis. PSYCHIATRIC: Affect appears appropriate. MEDICATIONS: Include atorvastatin 10 mg daily, Bumex 1 mg IV b.i.d., Diltiazem 360 mg daily, metoprolol succinate 200 mg daily, heparin drip per protocol, and potassium chloride 10 mEq daily. IMAGING DATA: Telemetry personally reviewed. Remains in atrial fibrillation but heart rate is better controlled. IMAGING DATA: Sodium 143, potassium 4.1, BUN 26, creatinine 1.45 down from 1.74. TSH 2.59. ASSESSMENT AND PLAN: 1. Acute on chronic diastolic congestive heart failure: Continue to diurese with Bumex 1 mg IV twice daily. Would aim for 1-2 liters negative in this 24-hour period. Continue strict I's and O's and daily weights. Monitor renal function closely. 2. Pleural effusions: Thoracentesis is being planned by Dr. Garcia, of pulmonology. 3. Atrial fibrillation: Heart rate is better controlled without any adjustment in her medications. This may be due to the fact that she is breathing more comfortably now. Continue rate control strategy for now. Continue anticoagulation for stroke risk reduction. 4. Pericardial effusion: Stable findings. Can follow over time. 5. Disposition: Cardiology will continue to follow. We will hold off on right heart catheterization for now as she appears to be diuresing without further issues with her renal insufficiency.
[2017-05-09 15:44] LABS: PTT PATIENT 49.7 SECONDS (21.0-31.0)
[2017-05-09] MEDS: ATORVASTATIN 10 MG TAB PO SCH (20:24)
[2017-05-10] VITALS (9 sets, daily range): BP systolic 105–161; BP diastolic 65–79; PULSE 73–89; TEMP 36.3–37; O2SAT 92–99
[2017-05-10] MEDS: HEPARIN 25,000 UNIT/500ML D5W 500 ML IV SCH (00:38)
[2017-05-10 05:55] LABS: HEMATOCRIT 35.6 % (37-47); HEMOGLOBIN 10.7 g/dL (12.0-16.0); MEAN CORPUSCULAR HEMOGLOBIN 27.6 pg (25-34); MEAN CORPUSCULAR HGB CONC 30.1 g/dl (32-36); MEAN PLATELET VOLUME 11.5 fL (7.4-10.4); PLATELET COUNT 254 K/uL (130-400); RED CELL DISTRIBUTION WIDTH SD 53.5 fL (36.4-46.3)
[2017-05-10 06:22] LABS: CREATININE 1.48 mg/dl (0.60-1.20); POTASSIUM 4.1 mmol/L (3.5-5.1)
[2017-05-10 06:47] LABS: PTT PATIENT 59.9 SECONDS (21.0-31.0)
[2017-05-10] MEDS: METOPROLOL SUCC 50MG EXT REL TAB PO SCH (07:29)
[2017-05-10] MEDS: POTASSIUM CHLORIDE 10 MEQ TABCR PO SCH (07:29)
[2017-05-10] MEDS: ACETAMINOPHEN 500 MG TAB PO SCH ×2 (07:29→20:54)
[2017-05-10] MEDS: DILTIAZEM HCL (TIAzac) 180 MG CAPCR PO SCH (07:29)
[2017-05-10] MEDS: BUMETANIDE IV 1 MG in SYRINGE 0 ML IV SCH (07:38)
--- NOTE | 2017-05-10 08:34 | Procedure Note ---
Procedure Note Date of Service May 10, 2017. Procedure Note Procedures: Left sided Thoracentesis Consent: obtained via the patient and placed into the chart Pre-Procedural Dx: Bilateral pleural effusions secondary to volume overload Post-Procedural Dx: Bilateral pleural effusion secondary to volume overload Analgesia: 8cc of 1% Liquid Lidocaine Procedure: The patient was placed in an upright position and thoracic US was used to select a spot for the procedure. A spot along the posterior axillary line was marked in the 7th intercostal space. The patient was then draped and prepped in a sterile fashion. A modified Seldinger technique was then used for catheter placement. Flowing this approximately ---cc of ------ pleural fluid was removed. The patient was then cleaned and placed at a 60 degree angle in the bed were the US was used to evaluate for possible pneumothorax. The US showed good lung sliding and [place] sign. Also post ultrasound evaluation showed almost no residual pleural effusion EBL: None Complications: None
[2017-05-10] MEDS ORDERED: BUMETANIDE IV 2 MG in SYRINGE 0 ML IV ONE (09:30)
[2017-05-10 09:41] LABS: PLEURAL FLUID TOTAL PROTEIN 2.7 g/dl
--- NOTE | 2017-05-10 10:00 | CARDIOLOGY PROGRESS NOTE ---
DATE: 05/10/2017 TIME: 9:17 a.m. SUBJECTIVE: She has not noted any improvement from her breathing from yesterday. She has noted that she did not diurese nearly as much yesterday she did the day before despite taking Bumex 1 mg twice daily. She underwent left-sided thoracentesis by Dr. Garcia earlier today and tolerated the procedure well. She does have some residual pain from the procedure. She denies orthopnea, syncope, near syncope, palpitations or bleeding. OBJECTIVE: VITAL SIGNS: Temperature 36.3 degrees, heart rate 89 beats per minute, respiration rate 16, blood pressure 161/79 mmHg, oxygen saturation 92% on 2 liters per nasal cannula. I's and O's positive 400 mL yesterday, weight is 90.3 kg. GENERAL: In no acute distress. She is alert. NECK: No appreciable JVD. CARDIAC EXAM: No ventricular heave, irregularly irregular, normal S1, S2, 2/6 early peaking systolic ejection murmur best heard at the right upper sternal border. No rubs or gallops. LUNGS: Improved breath sounds at the left base. Decreased breath sounds at the right base. ABDOMEN: Soft, nontender, nondistended. Normoactive bowel sounds. EXTREMITIES: 1+ tense bilateral lower extremity edema. No cyanosis. PSYCHIATRIC: Affect appears appropriate. MEDICATIONS: Include atorvastatin 10 mg daily, Bumex 1 mg IV twice daily, Diltiazem 360 mg daily, heparin drip per protocol, metoprolol succinate 200 mg daily, potassium chloride 10 mEq daily. LABORATORY DATA: White blood cell count is 10.1, hemoglobin 10.7, platelets 254. Sodium 143, potassium 4.1, BUN 27, creatinine 1.48. Telemetry personally reviewed. Atrial fibrillation. Intermittent aberrant conduction. ASSESSMENT AND PLAN: 1. [id number] diastolic congestive heart failure: She has tense lower extremity edema currently. She did not diurese sufficiently yesterday. We will increase Bumex to 2 mg twice daily with an additional 2 mg dose now. Strict I's and O's, daily weights recommended. Low sodium diet. 2. Pericardial effusion. No echocardiographic evidence of tamponade physiology. Stable findings. Can follow over time. 3. Atrial fibrillation: Heart rate is better controlled on current regimen. Her medications have not been adjusted. However, she was more short of breath upon presentation and now that she is more comfortable, her heart rate has improved. Continue anticoagulation for stroke risk reduction. 4. Pleural effusions: As per Dr. Garcia. She is status post thoracentesis. 5. Disposition: Cardiology will continue to follow. The patient's care has been communicated with Dr. Anthony of the primary hospitalist service.
[2017-05-10] MEDS: BUMETANIDE IV 2 MG in SYRINGE 0 ML IV SCH (17:20)
--- NOTE | 2017-05-10 19:33 | Hospitalist Progress Note ---
Hospitalist Progress Note Date of Service May 10, 2017. Subjective Pt evaluation today including: conversation w/ patient, conversation w/ family Patient feeling a little bit better today. Had a thoracentesis on the left side with removal of 1.2 L of fluid that is transudative. Her urine output has picked up this morning since receiving the increased dose of Bumex. She feels a little less short of breath and her leg swelling is improved. Telemetry with atrial fibrillation and some aberrancy, with some PVCs, rates in the 70s-80s. All Other Systems: Reviewed and Negative Objective Vital Signs Date Time Temp Pulse Resp B/P (MAP) Pulse Ox O2 Delivery O2 Flow Rate FiO2 05/10/17 16:02 92 Nasal Cannula 2.0 05/10/17 15:02 36.5 73 20 130/75 (93) 95 Nasal Cannula 2.0 05/10/17 12:32 92 Nasal Cannula 2.0 05/10/17 12:11 36.6 77 16 105/65 (78) 98 Nasal Cannula 2.0 05/10/17 08:45 92 Nasal Cannula 2.0 05/10/17 07:39 36.3 89 16 161/79 (106) 92 Nasal Cannula 2.0 05/10/17 04:00 Nasal Cannula 2.0 05/10/17 03:24 36.3 79 18 143/68 (93) 99 Nasal Cannula 2.0 05/09/17 23:59 Nasal Cannula 2.0 05/09/17 23:18 36.4 80 18 144/83 (103) 95 Nasal Cannula 2.0 05/09/17 20:00 Nasal Cannula 2.0 05/09/17 19:57 36.7 70 20 111/75 (87) 98 Nasal Cannula 2.0 Physical Exam General Appearance: WD/WN, no apparent distress Eyes: normal inspection, sclerae normal ENT: hearing grossly normal Neck: trachea midline Respiratory/Chest: no respiratory distress, no accessory muscle use, + decreased breath sounds (At the right base, some mild crackles at left base) Cardiovascular: + irregularly irregular Abdomen: normal bowel sounds, non tender, soft Extremities: non-tender, normal inspection, no pedal edema, no calf tenderness Neurologic/Psychiatric: alert, normal mood/affect, oriented x 3 Skin: normal color, warm/dry, no rash Laboratory Results Last 24 Hours Test 05/10/17 05:10 05/10/17 08:34 05/10/17 19:16 White Blood Count 10.10 K/uL Red Blood Count 3.87 M/uL Hemoglobin 10.7 g/dL Hematocrit 35.6 % Mean Corpuscular Volume 92.0 fL Mean Corpuscular Hemoglobin 27.6 pg Mean Corpuscular Hemoglobin Concent 30.1 g/dl RDW Standard Deviation 53.5 fL RDW Coefficient of Variation 16.0 % Platelet Count 254 K/uL Mean Platelet Volume 11.5 fL Activated Partial Thromboplast Time 59.9 SECONDS Partial Thromboplastin Ratio 2.3 Sodium Level 143 mmol/L Potassium Level 4.1 mmol/L Chloride Level 107 mmol/L Carbon Dioxide Level 31 mmol/L Anion Gap 5.0 mmol/L Blood Urea Nitrogen 27 mg/dl Creatinine 1.48 mg/dl Est Creatinine Clear Calc Drug Dose 32.6 ml/min Estimated GFR () 39.2 Estimated GFR (Non- 33.8 BUN/Creatinine Ratio 18.3 Random Glucose 116 mg/dl Calcium Level 9.0 mg/dl Pleural Fluid Source LEFT LUNG Pleural Fluid Color STRAW Pleural Fluid Appearance CLEAR Pleural Fluid WBC 390 /uL Pleural Fluid RBC < 3000 /uL Pleural Fluid pH 7.33 Pleural Fluid Polynuclear WBCs % 7.5 % Pleural Fluid Mononuclear WBCs % 92.5 % Pleural Fluid Total Protein 2.7 g/dl Pleural Fluid LDH 104 IU Pleural Fluid Glucose 125 mg/dl Pleural Fluid Amylase 28 U/L Assessment and Plan This patient is a 76yo female with CKD stage 3-4, chronic diastolic CHF, a. 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 On admission, she has evidence of acute/ chronic diastolic CHF and it also appears her bilateral pleural effusions have returned/worsened. 1. acute/chronic diastolic CHF/bilateral pleural effusions/small pericardial effusion - Could uncontrolled a. fib be contributing to decompensation (rapid on admission) There was also some concern that her CML chemotherapy agent (Bosulif) was causing edema/volume overload-its profile does show serious reactions to include pericardial and pleural effusions-but this has been on hold for 2 weeks now and has a half-life of 22.5 hours. She has only 1+ protein on u/a and her albumin is normal; thus, she does not have nephrotic syndrome or hypoalbuminemia contributing to volume overload. TSH normal. Does have a remote history of breast cancer, CT chest 04/24 shows possible XRT- induced changes of left breast, no lymphadenopathy but was without IV- possibility of malignant effusion-although cytology from previous thoracentesis 2 weeks ago was negative Appreciate cardiology consultation She had no diuresis in the previous 24 hours Echocardiogram with EF 55%, small pericardial effusion, she has moderate left atrial enlargement but no mention of diastolic dysfunction on echo Now status post thoracentesis of 1.2 L from the left side on 05/10 -Increase Bumex to 2 mg IV BID. -Pulmonology consulted and plans on doing right-sided thoracentesis tomorrow -Cardiology is no longer considering right heart catheterization -Follow up all pleural fluid studies-transudative so far 2. a. fib with RVR - s/p IV lopressor in the ER along with her normal toprol xl. Now continues with controlled rates, with some aberrancy. On heparin drip as a bridge while holding home anticoagulation She is on a new anticoagulant called Savaysa (XA inhibitor) -her daughter did bring it from home. -Continue diltiazem, metoprolol -Continue heparin drip until after thoracentesis tomorrow, then can restart her home anticoagulation and stop the heparin drip 3. CKD stage 3-4 - creatinine stable today -Follow PRP again this evening given increased dose of Bumex -Renally dose medications -Avoid nephrotoxins 4. LBBB - this is chronic. 5. leukocytosis, anemia - presumably 2nd to her CML. CML - followed by Dr. Wiggins; her most recent chemotherapy agent is on hold - see discussion above in #1. Counts here seem acceptable/stable. DVT proph -heparin drip Disposition-needs to continue to stay for IV diuresis -Continue on telemetry
[2017-05-10 20:38] LABS: CREATININE 1.61 mg/dl (0.60-1.20); POTASSIUM 3.6 mmol/L (3.5-5.1)
[2017-05-10] MEDS: ATORVASTATIN 10 MG TAB PO SCH (20:54)
[2017-05-11] VITALS (10 sets, daily range): BP systolic 129–157; BP diastolic 73–83; PULSE 80–84; TEMP 36.3–36.7; O2SAT 93–99
[2017-05-11 06:15] LABS: BASO % 0.1 %; BASO ABS # 0.01 K/uL (0-0.2); EOS % 1.7 %; EOS ABS # 0.16 K/uL (0-0.5); HEMATOCRIT 33.3 % (37-47); HEMOGLOBIN 10.2 g/dL (12.0-16.0); IG# 0.02 K/uL (0.00-0.02); LYMPH % 7.7 %; LYMPH ABS # 0.74 K/uL (1.2-3.4); MEAN CELL VOLUME 89.8 fL (80-100); MEAN CORPUSCULAR HEMOGLOBIN 27.5 pg (25-34); MEAN CORPUSCULAR HGB CONC 30.6 g/dl (32-36); MEAN PLATELET VOLUME 10.9 fL (7.4-10.4); MONO % 8.3 %; NEUT ABS # 7.87 K/uL (1.4-6.5); PLATELET COUNT 248 K/uL (130-400); RED CELL DISTRIBUTION WIDTH SD 52.3 fL (36.4-46.3)
[2017-05-11 06:45] LABS: CALCIUM 8.9 mg/dl (8.5-10.1); CREATININE 1.36 mg/dl (0.60-1.20); POTASSIUM 3.6 mmol/L (3.5-5.1)
[2017-05-11 06:49] LABS: PTT PATIENT 59.3 SECONDS (21.0-31.0)
--- NOTE | 2017-05-11 08:53 | CARDIOLOGY PROGRESS NOTE ---
DATE: 05/11/2017 TIME: 8:43 a.m. SUBJECTIVE: Her breathing has improved. She is still on supplemental oxygen. Her orthopnea has improved. She denies chest pain, syncope, near syncope, palpitations. She believes that her edema has improved. OBJECTIVE: VITAL SIGNS: Temperature 36.4 degrees, heart rate 84 beats per minute, respiration rate 20, blood pressure 136/76 mmHg, oxygen saturation 96% on 2 liters per nasal cannula. I's and O's negative 383 mL yesterday, weight is 90 kg. GENERAL: In no acute distress. She is alert. NECK: Mild JVD. CARDIAC EXAM: No ventricular heave, irregularly irregular, normal S1, S2, 2/6 early peaking systolic ejection murmur best heard at the right upper sternal border. No rubs or gallops. LUNGS: Decreased breath sounds at the right base, otherwise clear. ABDOMEN: Soft, nontender, nondistended. Normoactive bowel sounds. EXTREMITIES: Trace to 1+ bilateral lower extremity edema. No cyanosis. PSYCHIATRIC: Affect appears appropriate. MEDICATIONS: Bumex 2 mg IV b.i.d., Diltiazem 360 mg daily, atorvastatin 10 mg daily, metoprolol succinate 200 mg daily, potassium chloride 40 mEq daily, heparin drip per protocol. Telemetry personally reviewed. Atrial fibrillation with intermittent aberrancy. LABORATORY DATA: White blood cell count is 9.6, hemoglobin 10.2, platelets 248. Sodium 144, potassium 3.6, BUN 25, creatinine 1.36. ASSESSMENT AND PLAN: 1. Acute on chronic diastolic congestive heart failure: She appears to be improving daily. Would like to have a more significant negative fluid balance. We will give an additional 2 mg of IV Bumex midday today. If this does not give adequate diuresis will consider Diuril tomorrow. Low sodium diet. Strict I's and O's, daily weights recommended. 2. Pericardial effusion: Will follow over time. 3. Atrial fibrillation: Heart rate is better controlled. Continue outpatient regimen. Continue anticoagulation for stroke risk reduction. 4. Pleural effusions: She underwent left-sided thoracentesis yesterday. Dr. Garcia is considering right-sided thoracentesis as well. 5. Disposition: Cardiology will continue to follow.
[2017-05-11] MEDS: POTASSIUM CHLORIDE 10 MEQ TABCR PO SCH (09:56)
[2017-05-11] MEDS: ACETAMINOPHEN 500 MG TAB PO SCH ×2 (09:57→20:04)
[2017-05-11] MEDS: DILTIAZEM HCL (TIAzac) 180 MG CAPCR PO SCH (09:57)
[2017-05-11] MEDS: BUMETANIDE IV 2 MG in SYRINGE 0 ML IV SCH ×2 (09:57→17:30)
[2017-05-11] MEDS: HEPARIN 25,000 UNIT/500ML D5W 500 ML IV SCH (10:02)
[2017-05-11] MEDS: METOPROLOL SUCC 50MG EXT REL TAB PO SCH (10:28)
--- NOTE | 2017-05-11 10:41 | Pulmonology Progress Note ---
Pulmonary Progress Note Date of Service May 11, 2017. Attending Dr. Garcia Assessment & Plan Patient is notably improving today: Thoracic ultrasound: Right-sided thoracic ultrasound shows minimal pleural effusion possibly 300 cc. At this time I do not think clinically she would benefit from right-sided thoracentesis. Sign off: At this time pulmonary will sign off thank you for this consultation please contact the team if patient's clinical course changes. Data Medications: Current Inpatient Medications Medications (Trade) Dose Ordered Sig/[place] Route Start Time Stop Time Status Last Admin Dose Admin Acetaminophen (Tylenol Tab) 650 mg Q4H PRN PO 05/08/17 08:30 06/07/17 08:29 05/10/17 12:44 650 MG Al Hydrox/Mg Hydrox/Simethicone (Maalox Max Susp) 15 ml Q4H PRN PO 05/08/17 08:30 06/07/17 08:29 Magnesium Hydroxide (Milk Of Magnesia Susp) 30 ml Q12H PRN PO 05/08/17 08:30 06/07/17 08:29 Ondansetron HCl (Zofran Inj) 4 mg Q6H PRN IV 05/08/17 08:30 06/07/17 08:29 Acetaminophen (Tylenol Tab) 1,000 mg AMHS PO 05/08/17 09:00 06/07/17 08:59 05/11/17 09:57 1,000 MG Atorvastatin Calcium (Lipitor Tab) 10 mg QPM PO 05/08/17 21:00 06/07/17 20:59 05/10/17 20:54 10 MG Diltiazem HCl (TIAzac CAP) 360 mg QAM PO 05/09/17 09:00 06/08/17 08:59 05/11/17 09:57 360 MG Metoprolol Succinate (Toprol Xl Tab) 200 mg QAM PO 05/09/17 09:00 06/08/17 08:59 05/11/17 10:28 200 MG Apixaban (Eliquis Tab) 5 mg BID@0600,1800 PO 05/08/17 18:00 06/07/17 17:59 Future Hold Miscellaneous Information (Pending Order) 1 ea BID@0600,1800 N/A 05/08/17 18:00 06/07/17 17:59 Future Hold Heparin Sodium/ Dextrose 500 ml @ 17 mls/hr Q24H IV 05/08/17 17:45 06/07/17 17:44 05/11/17 10:02 17 MLS/HR Bumetanide 2 mg/ Syringe 8 ml @ 4 mls/min BID17 IV 05/10/17 17:00 06/07/17 11:59 05/11/17 09:57 4 MLS/MIN Potassium Chloride (Klor-Con M10) 40 meq QAM PO 05/11/17 09:00 06/07/17 08:59 05/11/17 09:56 40 MEQ Bumetanide 2 mg/ Syringe 8 ml @ 4 mls/min TODAY@1300 IV 05/11/17 13:00 05/11/17 15:00 Vital Signs: Date Time Temp Pulse Resp B/P (MAP) Pulse Ox O2 Delivery O2 Flow Rate FiO2 05/11/17 04:00 Nasal Cannula 2.0 05/11/17 03:43 36.4 84 20 136/76 (96) 96 Nasal Cannula 2.0 05/10/17 23:59 Nasal Cannula 2.0 05/10/17 23:48 37.0 78 18 130/78 (95) 96 Room Air 05/10/17 20:00 Nasal Cannula 2.0 05/10/17 18:34 36.7 76 22 132/75 (94) 96 Nasal Cannula 2.0 05/10/17 16:02 92 Nasal Cannula 2.0 05/10/17 15:02 36.5 73 20 130/75 (93) 95 Nasal Cannula 2.0 05/10/17 12:32 92 Nasal Cannula 2.0 05/10/17 12:11 36.6 77 16 105/65 (78) 98 Nasal Cannula 2.0 Laboratory Results: Last 24 Hours Test 05/10/17 19:28 05/11/17 05:22 Sodium Level 145 mmol/L 144 mmol/L Potassium Level 3.6 mmol/L 3.6 mmol/L Chloride Level 107 mmol/L 107 mmol/L Carbon Dioxide Level 32 mmol/L 31 mmol/L Anion Gap 5.0 mmol/L 6.0 mmol/L Blood Urea Nitrogen 28 mg/dl 25 mg/dl Creatinine 1.61 mg/dl 1.36 mg/dl Est Creatinine Clear Calc Drug Dose 29.9 ml/min 35.4 ml/min Estimated GFR () 35.4 43.4 Estimated GFR (Non- 30.5 37.4 BUN/Creatinine Ratio 17.6 18.1 Random Glucose 141 mg/dl 108 mg/dl Calcium Level 9.0 mg/dl 8.9 mg/dl White Blood Count 9.60 K/uL Red Blood Count 3.71 M/uL Hemoglobin 10.2 g/dL Hematocrit 33.3 % Mean Corpuscular Volume 89.8 fL Mean Corpuscular Hemoglobin 27.5 pg Mean Corpuscular Hemoglobin Concent 30.6 g/dl Platelet Count 248 K/uL Mean Platelet Volume 10.9 fL Neutrophils (%) (Auto) 82.0 % Lymphocytes (%) (Auto) 7.7 % Monocytes (%) (Auto) 8.3 % Eosinophils (%) (Auto) 1.7 % Basophils (%) (Auto) 0.1 % Neutrophils # (Auto) 7.87 K/uL Lymphocytes # (Auto) 0.74 K/uL Monocytes # (Auto) 0.80 K/uL Eosinophils # (Auto) 0.16 K/uL Basophils # (Auto) 0.01 K/uL RDW Standard Deviation 52.3 fL RDW Coefficient of Variation 16.0 % Immature Granulocyte % (Auto) 0.2 % Immature Granulocyte # (Auto) 0.02 K/uL Activated Partial Thromboplast Time 59.3 SECONDS Partial Thromboplastin Ratio 2.3
--- NOTE | 2017-05-11 11:49 | Hospitalist Progress Note ---
Hospitalist Progress Note Date of Service May 11, 2017. Subjective Pt evaluation today including: conversation w/ patient, conversation w/ family Feeling better, was off O2 at rest and sat 95%, ambulated and dropped to 88%. Now starting to feel SOB with being off O2 for a little while. Denies CP. Is overall feeling better, is briskly urinating. No thoracentesis performed today due to decreased amount of pleural fluid on right at only 300 mL. Tele with HR trending upward in A-fib with rates 70s-140s/160s at times All Other Systems: Reviewed and Negative Objective Vital Signs Date Time Temp Pulse Resp B/P (MAP) Pulse Ox O2 Delivery O2 Flow Rate FiO2 05/11/17 08:00 95 Room Air 05/11/17 04:00 Nasal Cannula 2.0 05/11/17 03:43 36.4 84 20 136/76 (96) 96 Nasal Cannula 2.0 05/10/17 23:59 Nasal Cannula 2.0 05/10/17 23:48 37.0 78 18 130/78 (95) 96 Room Air 05/10/17 20:00 Nasal Cannula 2.0 05/10/17 18:34 36.7 76 22 132/75 (94) 96 Nasal Cannula 2.0 05/10/17 16:02 92 Nasal Cannula 2.0 05/10/17 15:02 36.5 73 20 130/75 (93) 95 Nasal Cannula 2.0 05/10/17 12:32 92 Nasal Cannula 2.0 05/10/17 12:11 36.6 77 16 105/65 (78) 98 Nasal Cannula 2.0 Physical Exam General Appearance: WD/WN, no apparent distress Eyes: normal inspection, sclerae normal ENT: hearing grossly normal Neck: trachea midline Respiratory/Chest: no respiratory distress, no accessory muscle use, + decreased breath sounds (at right base, some crackles at left base) Cardiovascular: + systolic murmur, + irregularly irregular (with normal rate) Abdomen: normal bowel sounds, non tender, soft Extremities: no calf tenderness, + swelling (1+ pitting edema to knees bilat) Neurologic/Psychiatric: no motor/sensory deficits, alert, normal mood/affect, oriented x 3 Skin: normal color, warm/dry, no rash Laboratory Results Last 24 Hours Test 05/10/17 19:28 05/11/17 05:22 Sodium Level 145 mmol/L 144 mmol/L Potassium Level 3.6 mmol/L 3.6 mmol/L Chloride Level 107 mmol/L 107 mmol/L Carbon Dioxide Level 32 mmol/L 31 mmol/L Anion Gap 5.0 mmol/L 6.0 mmol/L Blood Urea Nitrogen 28 mg/dl 25 mg/dl Creatinine 1.61 mg/dl 1.36 mg/dl Est Creatinine Clear Calc Drug Dose 29.9 ml/min 35.4 ml/min Estimated GFR () 35.4 43.4 Estimated GFR (Non- 30.5 37.4 BUN/Creatinine Ratio 17.6 18.1 Random Glucose 141 mg/dl 108 mg/dl Calcium Level 9.0 mg/dl 8.9 mg/dl White Blood Count 9.60 K/uL Red Blood Count 3.71 M/uL Hemoglobin 10.2 g/dL Hematocrit 33.3 % Mean Corpuscular Volume 89.8 fL Mean Corpuscular Hemoglobin 27.5 pg Mean Corpuscular Hemoglobin Concent 30.6 g/dl Platelet Count 248 K/uL Mean Platelet Volume 10.9 fL Neutrophils (%) (Auto) 82.0 % Lymphocytes (%) (Auto) 7.7 % Monocytes (%) (Auto) 8.3 % Eosinophils (%) (Auto) 1.7 % Basophils (%) (Auto) 0.1 % Neutrophils # (Auto) 7.87 K/uL Lymphocytes # (Auto) 0.74 K/uL Monocytes # (Auto) 0.80 K/uL Eosinophils # (Auto) 0.16 K/uL Basophils # (Auto) 0.01 K/uL RDW Standard Deviation 52.3 fL RDW Coefficient of Variation 16.0 % Immature Granulocyte % (Auto) 0.2 % Immature Granulocyte # (Auto) 0.02 K/uL Activated Partial Thromboplast Time 59.3 SECONDS Partial Thromboplastin Ratio 2.3 Assessment and Plan This patient is a 76yo female with CKD stage 3-4, chronic diastolic CHF, a. 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 On admission, she has evidence of acute/ chronic diastolic CHF and it also appears her bilateral pleural effusions have returned/worsened. 1. Acute/chronic diastolic CHF/bilateral pleural effusions/small pericardial effusion - suspect uncontrolled a. fib be contributing to decompensation ( rapid on admission), vs. concern that her CML chemotherapy agent (Bosulif) was causing edema/volume overload-its profile does show serious reactions to include pericardial and pleural effusions-but this has been on hold for 2 weeks now and has a half-life of 22.5 hours. She has only 1+ protein on u/a and her albumin is normal; thus, she does not have nephrotic syndrome or hypoalbuminemia contributing to volume overload. TSH normal. Does have a remote history of breast cancer, CT chest 04/24 shows possible XRT- induced changes of left breast, no lymphadenopathy but was without IV- possibility of malignant effusion-although cytology from previous thoracentesis 2 weeks ago was negative Appreciate cardiology consultation Diuresis picking up now and feelin gbetter, weaning off O2, decreased amount of pleural effusion on US of right side today and thoracentesis not needed. Echocardiogram with EF 55%, small pericardial effusion, she has moderate left atrial enlargement but no mention of diastolic dysfunction on echo Now status post thoracentesis of 1.2 L from the left side on 05/10 -continue Bumex 2 mg IV BID. -Pulmonology consult appreciated -Cardiology is no longer considering right heart catheterization -Follow up all pleural fluid studies-transudative so far, cytology pending, cultures no growth, AFB negative 2. a. fib with RVR - s/p IV lopressor in the ER along with her normal toprol xl. Now continues with controlled rates, with some aberrancy. On heparin drip as a bridge while holding home anticoagulation She is on a new anticoagulant called Savaysa (XA inhibitor) -her daughter did bring it from home. -Continue diltiazem 360mg daily, metoprolol succinate 200mg daily and with rising rates, will d/w Cardiology about further management -dc heparin gtt this evening simultaneously with restarting home Savaysa 3. CKD stage 3-4 - creatinine stable to improved today at 1.36 -Renally dose medications -Avoid nephrotoxins 4. LBBB - this is chronic. 5. leukocytosis, anemia - presumably 2nd to her CML. CML - followed by Dr. Wiggins; her most recent chemotherapy agent is on hold - see discussion above in #1. Counts here seem acceptable/stable. DVT proph -heparin drip, Savaysa Disposition-needs to continue to stay for IV diuresis -Continue on telemetry
[2017-05-11] MEDS ORDERED: [UNRECOGNIZED DRUG - REMARK] SCH (12:05)
[2017-05-11] MEDS ORDERED: BUMETANIDE IV 2 MG in SYRINGE 0 ML IV SCH (13:00)
[2017-05-11] MEDS: EDOXABAN TOSYLATE 30 MG TAB PO SCH (15:41)
[2017-05-11] MEDS: ATORVASTATIN 10 MG TAB PO SCH (20:04)
[2017-05-12] VITALS (10 sets, daily range): BP systolic 121–168; BP diastolic 67–99; PULSE 69–93; TEMP 36.3–36.7; O2SAT 90–97
[2017-05-12 06:28] LABS: HEMATOCRIT 36.9 % (37-47); MEAN CELL VOLUME 90.2 fL (80-100); MEAN CORPUSCULAR HEMOGLOBIN 26.9 pg (25-34); MEAN CORPUSCULAR HGB CONC 29.8 g/dl (32-36); MEAN PLATELET VOLUME 11.6 fL (7.4-10.4); PLATELET COUNT 257 K/uL (130-400); RED CELL DISTRIBUTION WIDTH CV 16.1 % (11.5-14.5); RED CELL DISTRIBUTION WIDTH SD 52.1 fL (36.4-46.3); WHITE BLOOD COUNT 9.18 K/uL (4.8-10.8)
[2017-05-12 06:32] LABS: PTT PATIENT 28.3 SECONDS (21.0-31.0)
[2017-05-12 08:51] LABS: CALCIUM 9.2 mg/dl (8.5-10.1); CREATININE 1.24 mg/dl (0.60-1.20); POTASSIUM 3.9 mmol/L (3.5-5.1)
[2017-05-12] MEDS: METOPROLOL SUCC 50MG EXT REL TAB PO SCH (09:01)
[2017-05-12] MEDS: ACETAMINOPHEN 500 MG TAB PO SCH ×2 (09:02→20:56)
[2017-05-12] MEDS: DILTIAZEM HCL (TIAzac) 180 MG CAPCR PO SCH (09:02)
[2017-05-12] MEDS: POTASSIUM CHLORIDE 10 MEQ TABCR PO SCH (09:02)
[2017-05-12] MEDS: BUMETANIDE IV 2 MG in SYRINGE 0 ML IV SCH ×2 (09:02→16:47)
[2017-05-12] MEDS ORDERED: MAGNESIUM SULFATE 1GM / D5W 1 GM in PREMIXED IN D5W 100 ML IV SCH (15:00)
--- NOTE | 2017-05-12 15:47 | CARDIOLOGY PROGRESS NOTE ---
DATE: 05/12/2017 TIME: 15:21 p.m. SUBJECTIVE: Her breathing is much better. She states it has been sometime since she has been able to breathe as well as she is today. She was able to ambulate in the hallway without oxygen and states that she maintained her oxygen saturation. She denies chest pain, syncope, near syncope, or palpitations. OBJECTIVE: VITAL SIGNS: Temperature 36.5 degrees, heart rate 86 beats per minute, respiratory rate 18, blood pressure 121/68 mmHg, and oxygen saturation 96% on 2 liters per nasal cannula. Her heart rate on telemetry at the time of today's visit was in the 60s. I's and O's positive 443 mL yesterday; however, her weight continues to trend downward and is 89.1 kilograms today. She states that she is collecting all of her urine and states that she urinated quite often, so it is unclear a total of 900 mL of urine output yesterday is accurate or not. She is already 1 L negative today. GENERAL: No acute distress. She is alert. NECK: No appreciable JVD or hepatojugular reflux. CARDIAC EXAM: No ventricular heave. Irregularly irregular. Normal S1 and S2. There was a 2/6 early peaking systolic ejection murmur best heard at the right upper sternal border. No rubs or gallops. LUNGS: Crackles at the left base. Decreased breath sounds at the right base. ABDOMEN: Soft, nontender, and nondistended. Normoactive bowel sounds. EXTREMITIES: Trace to 1+ bilateral lower extremity edema to approximately 6 inches above the ankles. No cyanosis. PSYCHIATRIC: Affect appears appropriate. MEDICATIONS: Include atorvastatin 10 mg daily, Bumex 2 mg IV b.i.d., diltiazem 360 mg daily, Savaysa 30 mg daily, metoprolol succinate 200 mg daily, and potassium chloride 40 mEq daily. LABORATORY DATA: White blood cell count is 9.18, hemoglobin 11, and platelets 257. Sodium 143, potassium 3.9, BUN 20, creatinine 1.24, and magnesium 1.8. Telemetry personally reviewed. Atrial fibrillation. Intermittent wide QRS complexes, which may be related to rate related bundle versus aberrant conduction. ASSESSMENT AND PLAN: 1. Acute on chronic diastolic congestive heart failure: She continues to improve on a daily basis. Continue current dose of Bumex. Upon discharge, would use oral Bumex as she is tolerating it and improving quite well on this medication. Strict I's and O's and daily weights recommended. 2. Pericardial effusion: She has not echocardiographic evidence of tamponade physiology and clinically does not appear to be in tamponade. Continue to follow over time. 3. Atrial fibrillation: Her heart rate is adequately controlled for the majority of the time. She has had some brief episodes of tachycardia and there was consideration for starting digoxin, but her heart rate is currently in the 60s. Continue beta amanda and calcium channel amanda. Continue anticoagulation for stroke risk reduction. 4. Pleural effusions: She is status post left-sided thoracentesis. 5. Disposition: Cardiology will continue to follow. The patient's care has been discussed with Dr. Anthony. Sincerely,
[2017-05-12] MEDS: EDOXABAN TOSYLATE 30 MG TAB PO SCH (16:41)
[2017-05-12] MEDS: ATORVASTATIN 10 MG TAB PO SCH (20:55)
--- NOTE | 2017-05-13 00:06 | Hospitalist Progress Note ---
Hospitalist Progress Note Date of Service May 12, 2017. Subjective Pt evaluation today including: conversation w/ patient Patient feeling much better today. She is off oxygen currently on room air at rest and ambulated down the [place] without oxygen as well. She does feel a little short of breath after being off oxygen for about 15 minutes now. No chest pain. Her appetite is still low but she has no other complaints. Telemetry with some likely rate related bundle branch block, but overall trend of rates is lower today. Discussed her care with the retail clerk. All Other Systems: Reviewed and Negative Objective Vital Signs Date Time Temp Pulse Resp B/P (MAP) Pulse Ox O2 Delivery O2 Flow Rate FiO2 05/12/17 20:00 Room Air 05/12/17 18:54 36.6 86 19 123/80 (94) 90 Room Air 05/12/17 16:00 Room Air 05/12/17 15:04 36.3 69 20 146/93 (110) 90 Room Air 05/12/17 14:02 97 05/12/17 12:28 36.5 86 18 121/68 (85) 96 05/12/17 12:00 Nasal Cannula 2.0 05/12/17 08:00 Nasal Cannula 2.0 05/12/17 07:08 36.5 93 20 148/99 (115) 95 Nasal Cannula 2.0 05/12/17 04:00 96 Nasal Cannula 2.0 05/12/17 03:10 36.7 78 20 148/91 (110) 96 Nasal Cannula 1.5 05/12/17 00:01 93 Nasal Cannula 2.0 Physical Exam General Appearance: WD/WN, no apparent distress (Sitting in chair at bedside) Eyes: normal inspection, sclerae normal ENT: hearing grossly normal Neck: trachea midline Respiratory/Chest: normal breath sounds, no accessory muscle use, + decreased breath sounds (At the right base, otherwise fairly clear) Cardiovascular: + irregularly irregular (With normal rate), + pertinent finding (Trace pitting edema of the legs bilaterally) Abdomen: normal bowel sounds, non tender, soft Extremities: no calf tenderness Neurologic/Psychiatric: alert, normal mood/affect, oriented x 3 Skin: normal color, warm/dry, no rash Laboratory Results Last 24 Hours Test 05/12/17 05:35 White Blood Count 9.18 K/uL Red Blood Count 4.09 M/uL Hemoglobin 11.0 g/dL Hematocrit 36.9 % Mean Corpuscular Volume 90.2 fL Mean Corpuscular Hemoglobin 26.9 pg Mean Corpuscular Hemoglobin Concent 29.8 g/dl RDW Standard Deviation 52.1 fL RDW Coefficient of Variation 16.1 % Platelet Count 257 K/uL Mean Platelet Volume 11.6 fL Activated Partial Thromboplast Time 28.3 SECONDS Partial Thromboplastin Ratio 1.1 Sodium Level 143 mmol/L Potassium Level 3.9 mmol/L Chloride Level 106 mmol/L Carbon Dioxide Level 34 mmol/L Anion Gap 4.0 mmol/L Blood Urea Nitrogen 20 mg/dl Creatinine 1.24 mg/dl Est Creatinine Clear Calc Drug Dose 38.6 ml/min Estimated GFR () 48.5 Estimated GFR (Non- 41.9 BUN/Creatinine Ratio 16.5 Random Glucose 102 mg/dl Calcium Level 9.2 mg/dl Magnesium Level 1.8 mg/dl Assessment and Plan This patient is a 76yo female with CKD stage 3-4, chronic diastolic CHF, a. 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 On admission, she has evidence of acute/ chronic diastolic CHF and it also appears her bilateral pleural effusions have returned/worsened. 1. Acute/chronic diastolic CHF/bilateral pleural effusions/small pericardial effusion - suspect uncontrolled a. fib be contributing to decompensation ( rapid on admission), vs. concern that her CML chemotherapy agent (Bosulif) was causing edema/volume overload-its profile does show serious reactions to include pericardial and pleural effusions-but this has been on hold for over 2 weeks now and has a half- life of 22.5 hours. She has only 1+ protein on u/a and her albumin is normal; thus, she does not have nephrotic syndrome or hypoalbuminemia contributing to volume overload. TSH normal. Does have a remote history of breast cancer, CT chest 3/3 shows possible XRT- induced changes of left breast, no lymphadenopathy but was without IV- possibility of malignant effusion-although cytology from previous thoracentesis 2 weeks ago was negative Appreciate cardiology consultation Continues to diuresis and is now completely weaned off O2, decreased amount of pleural effusion on repeat US of right side by pulmonology and thoracentesis not needed anymore in the right side. Echocardiogram with EF 55%, small pericardial effusion, she has moderate left atrial enlargement but no mention of diastolic dysfunction on echo Now status post thoracentesis of 1.2 L from the left side on 05/10 -continue Bumex 2 mg IV BID and will transition to p.o. Bumex likely tomorrow for discharge -Pulmonology consult appreciated -Cardiology consultation is appreciated -Follow up all pleural fluid studies-transudative so far, cytology negative, cultures no growth, AFB negative 2. Atrial fibrillation with RVR - s/p IV lopressor in the ER along with her normal toprol xl. Now continues with controlled rates, with some aberrancy. She is on a new anticoagulant called Savaysa (XA inhibitor) -her daughter did bring it from home. -Continue diltiazem 360mg daily, metoprolol succinate 200mg daily -Continue Savaysa for anticoagulation 3. CKD stage 3-4 - creatinine continues to improve today at 1.24 -Renally dose medications -Avoid nephrotoxins 4. LBBB - this is chronic and rate related. 5. leukocytosis, anemia - presumably 2nd to her CML. CML - followed by Dr. Wiggins; her most recent chemotherapy agent is on hold - see discussion above in #1. Counts here seem acceptable/stable. DVT proph -Savaysa Disposition-needs to continue to stay for IV diuresis, but could possibly discharged home tomorrow -Continue on telemetry
[2017-05-13 03:31] VITALS: BP 168/82; PULSE 105; TEMP 36.4; O2SAT 96
[2017-05-13 06:53] LABS: PTT PATIENT 29.5 SECONDS (21.0-31.0)
[2017-05-13 07:19] LABS: CALCIUM 9.1 mg/dl (8.5-10.1); CREATININE 1.21 mg/dl (0.60-1.20); POTASSIUM 3.7 mmol/L (3.5-5.1)
[2017-05-13 08:00] VITALS: BP 139/74; PULSE 89; TEMP 36.5; O2SAT 96
[2017-05-13] MEDS: BUMETANIDE IV 2 MG in SYRINGE 0 ML IV SCH (08:56)
[2017-05-13] MEDS: ACETAMINOPHEN 500 MG TAB PO SCH (08:56)
[2017-05-13] MEDS: METOPROLOL SUCC 50MG EXT REL TAB PO SCH (08:56)
[2017-05-13] MEDS: POTASSIUM CHLORIDE 10 MEQ TABCR PO SCH (08:57)
[2017-05-13] MEDS: DILTIAZEM HCL (TIAzac) 180 MG CAPCR PO SCH (08:57)
[2017-05-13] MEDS ORDERED: POTA10CA28 PO (10:31)
[2017-05-13] MEDS ORDERED: METO200T32 PO (10:31)
[2017-05-13] MEDS ORDERED: BUME2TAB3 PO (10:31)
--- NOTE | 2017-05-13 10:46 | Discharge Instructions ---
Discharge Instructions Date of Service May 13, 2017. Admission Reason for Admission: Acute Diastolic Chf, Atrial Fibrillation With Rvr Discharge Discharge Diagnosis / Problem: Acute diastolic CHF, Rapid atrial fibrillation, Pleural Effusion Discharge Goals Goal(s): Improve disease control, Diagnostic testing, Therapeutic intervention Activity Recommendations Activity Limitations: as noted below Exercise/Sports Limitations: gradually increase as tolerated Shower/Bathe: no limitations . Instructions / Follow-Up Instructions / Follow-Up You were admitted with worsening shortness of breath and pleural effusions. You had the left sided lung fluid removed. You were changed to a different diuretic called Bumex and had excellent results. Your oxygen level only dropped to 93% with ambulation and therefore you don't even need the Oxygen at home anymore. Please follow up with Cardiology as scheduled within 1 week and with PCP within 1 week. Call your Primary Care doctor if any of the following symptoms or problems start or get worse: * Shortness of breath or difficulty breathing * Wake up at night short of breath * Chest pain * Cough * Swelling of your hands, feet, or legs * More fatigued or tired with your normal activity * Palpitations - sudden fast heart beats WEIGHT * Weigh yourself every morning after using the bathroom. * Use the same scale. * Wear the same amount of clothing. * Write your weight down on a chart. * Call your Primary Care doctor if you gain more than 2-3 pounds in 1-2 days. MEDICATIONS * Use this discharge instruction sheet for medication instructions. * Take your medications at the time your doctor ordered. * Do not skip a dose of your medicines. * If you miss a dose of medicine, take it as soon as possible, but DO NOT DOUBLE A DOSE. * Read your medicine information when you get home. * Know all of the side effects of your medicine. If in doubt, ask your pharmacist * Call your Primary Care doctor's office if you have any side effects. * Be sure all of your doctors know what medicine and herbs you take (including cold, flu, and herbal medicine). Take the following with you to your follow-up doctor appointments: * Weight Chart * Medication List * List of questions Do not drink excessive alcohol, beer or wine. Current Hospital Diet Patient's current hospital diet: Low Sodium Diet (2gm Na) Discharge Diet Recommended Diet: Low Sodium Diet (2gm Na) Fluid Restriction: 2000 ml (8 cups) Procedures Procedures Performed: Thoracentesis Chest xray Chest ultrasound Echocardiogram Pending Studies Studies pending at discharge: yes List of pending studies: AFB Culture of Pleural fluid Laboratory Results Last 24 Hours Test 05/13/17 05:39 Activated Partial Thromboplast Time 29.5 SECONDS Partial Thromboplastin Ratio 1.1 Sodium Level 142 mmol/L Potassium Level 3.7 mmol/L Chloride Level 104 mmol/L Carbon Dioxide Level 34 mmol/L Anion Gap 4.0 mmol/L Blood Urea Nitrogen 18 mg/dl Creatinine 1.21 mg/dl Est Creatinine Clear Calc Drug Dose 39.0 ml/min Estimated GFR () 50.0 Estimated GFR (Non- 43.1 BUN/Creatinine Ratio 15.2 Random Glucose 103 mg/dl Calcium Level 9.1 mg/dl Magnesium Level 2.0 mg/dl Medical Emergencies . Who to Call and When: Call 911 or go to the Emergency Room if: * If at any time you feel your situation is an emergency * You have tightness or pain in your chest that does not go away with rest or Nitroglycerin * You are very short of breath even with rest . Non-Emergent Contact Non-Emergency issues call your: Primary Care Provider, Research Pharmacist Call Non-Emergent contact if: you have any medication questions If you have weight gain, leg swelling, worsening shortness of breath, or for any other concerns . . "Provider Documentation" section prepared by Melina Anthony. .
--- NOTE | 2017-05-13 11:32 | CARDIOLOGY PROGRESS NOTE ---
DATE: 05/13/2017 TIME: 10:04 a.m. SUBJECTIVE: She feels much better. She did use oxygen overnight intermittently but otherwise feels well on room air currently. She denies chest pain, syncope, near syncope, palpitations. Her edema has improved. She denies bleeding. She would like to go home soon. OBJECTIVE: VITAL SIGNS: Temperature 36.4 degrees, heart rate 105 beats per minute but has been otherwise well controlled, respiration rate 20, blood pressure 168/82 mmHg, her blood pressure has been normotensive to mildly hypertensive, oxygen saturation 96% on 2 liters per nasal cannula. I's and O's, negative 1.7 liters yesterday. Weight is 87 kg. GENERAL: No acute distress. She is alert. NECK: No JVD. CARDIAC: No ventricular heave, irregularly irregular, normal S1 and S2. 2/6 early peaking systolic ejection murmur, best heard at the right upper sternal border. No rubs or gallops. LUNGS: Improved breath sounds at the right base. Clear lungs. ABDOMEN: Soft, nontender, nondistended. Normoactive bowel sounds. EXTREMITIES: Trace bilateral lower extremity edema. No cyanosis. PSYCHIATRIC: Affect appears appropriate. MEDICATIONS: Include metoprolol 200 mg daily, diltiazem 360 mg daily, Bumex 2 mg IV b.i.d., Lipitor 10 mg daily, Savaysa 30 mg daily, potassium chloride 40 mEq daily. Telemetry personally reviewed. She remains in atrial fibrillation and tends to have faster heart rates in the mornings before she takes her morning medications and then heart rate is improved throughout the day. Chart reviewed. LABORATORY DATA: Sodium 142, potassium is 3.7, BUN 18, creatinine 1.21, magnesium 2. ASSESSMENT AND PLAN: 1. Acute on chronic diastolic congestive heart failure: She does not appear significantly hypervolemic and appears rather euvolemic. She is not azotemic based on her labs. Would continue Bumex at current dose, and if discharged today, would continue 2 mg p.o. b.i.d. of Bumex in place of Lasix. We discussed the importance of a low sodium diet, less than 2000 mg daily. She was asked to weigh herself daily and bring it to her appointment which has been scheduled for this upcoming Wednesday in our [facility] [place] [facility] for heart failure followup. 2. Pericardial effusion: This can be followed over time. 3. Atrial fibrillation: She tends to have faster heart rates in the morning, which improve after taking her rate controlling medications. Upon discharge, would recommend that her beta amanda be in divided doses or to take either diltiazem or to stagger her beta amanda and calcium channel amanda so that one is in the morning and one in the evening, to see if that gives her an improved heart rate trend throughout the day. Continue anticoagulation for stroke risk reduction. 4. Pleural effusions: She underwent left-sided thoracentesis. Her right-sided effusion has improved with diuresis. 5. Disposition: From a cardiac standpoint, she can be discharged. She will follow up with heart failure protocol early next week in our [place] office. The appointment has been made for her at 3:30 on this upcoming Wednesday. The patient's care has been discussed with Dr. Anthony of the primary hospitalist service.
[2017-05-13 11:50] VITALS: BP 139/74; PULSE 89; TEMP 36.5; O2SAT 96
--- NOTE | 2017-05-17 00:50 | Discharge Summary ---
Discharge Summary Date of Service May 13, 2017. 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 Procedures: CXR Chest US Thoracentesis-left ECHO Consultations: Cardiology Pulmonology Medication Reconciliation New Medications: Bumetanide (Bumex) 2 Mg Tab 1 TAB PO BID for 30 Days, #60 TAB 0 Refills Changed Medications: Metoprolol Succinate (Toprolxl (Toprol-Xl) 200 Mg Tabcr 200 MG PO QPM for 30 Days, TAB (Changed from: QAM) Potassium Chloride (Micro-K Ext Rel) 10 Meq Capcr 20 MEQ PO QAM, #60 CAP (Changed from: 10 MEQ) Continued Medications: Acetaminophen (Tylenol) 500 Mg Tab 1000 MG PO AMHS, TAB Atorvastatin (Lipitor) 10 Mg Tab 10 MG PO QPM, TAB Cyanocobalamin (Vitamin B-12) 500 Mcg Sub 500 MCG SL DAILY Diltiazem Hcl Ext Rel (Tiazac) 360 Mg Capcr 360 MG PO QAM, CAP Edoxaban Tosylate (Savaysa) 30 Mg Tab 30 MG PO DAILY@1800 Polyethylene Glycol-Propylene (Systane) 1 Ashly Ashly 1 DROPS OP UD PRN for PRN, ML Discontinued Medications: Furosemide (Lasix) 40 Mg Tab 40 MG PO DAILY, TAB Discharge Exam Feeling well. Has been off O2 and feels a little SOB, but two step performed and the lowest POx was 93% with ambulation on RA. No chest pain, no headache, no abd pain, no nausea. Discussed case with Cardiology-Tele with rates higher usually in the mornings that improve after receiving her diltiazem and Toprol. Discussed changing the timing of her meds to Toprol in the evening Physical Exam General Appearance: WD/WN, no apparent distress (Sitting in chair at bedside) Eyes: normal inspection, sclerae normal ENT: hearing grossly normal Neck: trachea midline Respiratory/Chest: normal breath sounds, no accessory muscle use, + decreased breath sounds (At the right base, otherwise fairly clear) Cardiovascular: + irregularly irregular (With normal rate), + pertinent finding (Trace pitting edema of the legs bilaterally-much improved) Abdomen: normal bowel sounds, non tender, soft Extremities: no calf tenderness Neurologic/Psychiatric: alert, normal mood/affect, oriented x 3 Skin: normal color, warm/dry, no rash Review of Systems: Constitutional: No problem reported Eyes: No problem reported ENT: No problem reported Respiratory: + shortness of breath (occasionally) Cardiovascular: No problem reported Abdomen: No problem reported Musculoskeletal: No problem reported Genitourinary - Female: No problem reported Neurologic: No problem reported Psychiatric: No problem reported Endocrine: No problem reported Hematologic / Lymphatic: No problem reported Integumentary: No problem reported Hospital Course This patient is a 76yo female with CKD stage 3-4, chronic diastolic CHF, a. 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 On admission, she has evidence of acute/ chronic diastolic CHF and it also appears her bilateral pleural effusions have returned/worsened. 1. Acute/chronic diastolic CHF/bilateral pleural effusions/small pericardial effusion - suspect uncontrolled a. fib be contributing to decompensation ( rapid on admission), vs. concern that her CML chemotherapy agent (Bosulif) was causing edema/volume overload-its profile does show serious reactions to include pericardial and pleural effusions-but this has been on hold for over 2 weeks now and has a half- life of 22.5 hours. She has only 1+ protein on u/a and her albumin is normal; thus, she does not have nephrotic syndrome or hypoalbuminemia contributing to volume overload. TSH normal. Does have a remote history of breast cancer, CT chest 3/3 shows possible XRT- induced changes of left breast, no lymphadenopathy but was without IV- possibility of malignant effusion-although cytology from previous thoracentesis 2 weeks ago was negative Appreciate cardiology consultation Continues to diurese and is now completely weaned off O2, decreased amount of pleural effusion on repeat US of right side by pulmonology and thoracentesis not needed anymore in the right side. Echocardiogram with EF 55%, small pericardial effusion, she has moderate left atrial enlargement but no mention of diastolic dysfunction on echo Now status post thoracentesis of 1.2 L from the left side on 05/10 -received Bumex 2 mg IV BID and will transition to p.o. Bumex for discharge at 2 mg po bid -Pulmonology consult appreciated -Cardiology consultation is appreciated -Follow up all pleural fluid studies-transudative so far, cytology negative, cultures no growth, AFB negative 2. Atrial fibrillation with RVR - s/p IV lopressor in the ER along with her normal toprol xl. Now continues with controlled rates, with some aberrancy. -Continue diltiazem 360mg daily, metoprolol succinate 200mg daily but change Toprol to take in the evening as her rates tended to be highest and uncontrolled in the morning -Continue Savaysa for anticoagulation 3. CKD stage 3-4 - creatinine continues to improve today at 1.21 even in the midst of aggressive diuresis -Renally dose medications -Avoid nephrotoxins 4. LBBB - this is chronic and rate related. 5. leukocytosis, anemia - presumably 2nd to her CML. CML - followed by Dr. Wiggins; her most recent chemotherapy agent is on hold - see discussion above in #1. Counts here seem acceptable/stable. DVT proph -Savaysa Disposition-stable for discharge to home today Total Time Spent: Greater than 30 minutes This includes examination of the patient, discharge planning, medication reconciliation, and communication with other providers. Discharge Instructions Please refer to the electronic Patient Visit Report (Discharge Instructions) for additional information. Follow-Up PCP within 1 week Cardiology within 5 days Additional Copies To Lopez Dahl M.D.; Shay Mckenzie MD
== END 2017-05-13 12:15 | disposition home or self-care (01) | DRG 291 ==
LOC: EDBD 06:03 → C.EDB 06:06 → C.2T 08:40 → ENRESERV 09:01
PROVIDERS: ADMIT Internal Medicine; ATTEND Family Medicine
PROC: 0W9B3ZZ Drainage of Left Pleural Cavity, Percutaneous Approach (ICD-10-PCS; principal; 2017-05-10)
DX: I13.0 Hypertensive heart and chronic kidney disease with heart failure and stage 1 through stage 4 chronic kidney disease, or unspecified chronic kidney disease (principal); I50.33 Acute on chronic diastolic (congestive) heart failure; C95.10 Chronic leukemia of unspecified cell type not having achieved remission; N18.4 Chronic kidney disease, stage 4 (severe); I31.3 Pericardial effusion (noninflammatory); I48.0 Paroxysmal atrial fibrillation; D64.9 Anemia, unspecified; E66.9 Obesity, unspecified; I44.7 Left bundle-branch block, unspecified; Z96.651 Presence of right artificial knee joint; I42.9 Cardiomyopathy, unspecified; Z85.3 Personal history of malignant neoplasm of breast; E53.8 Deficiency of other specified B group vitamins; E88.09 Other disorders of plasma-protein metabolism, not elsewhere classified

== ENCOUNTER → 2017-05-17 | Outpatient (CLI) | payer OTHER, BC ==
[~2017-05-17] MED LIST changes: -AMOX500T PO; +BUME2TAB3 PO; -FURO20TA PO; -LCTX PO; +POLYSOL4 OP
[2017-05-17 17:48] LABS: BASO % 0.2 %; BASO ABS # 0.02 K/uL (0-0.2); EOS % 0.7 %; EOS ABS # 0.08 K/uL (0-0.5); HEMATOCRIT 36.4 % (37-47); HEMOGLOBIN 11.1 g/dL (12.0-16.0); IG# 0.03 K/uL (0.00-0.02); LYMPH ABS # 1.08 K/uL (1.2-3.4); MEAN CELL VOLUME 89.9 fL (80-100); MEAN CORPUSCULAR HEMOGLOBIN 27.4 pg (25-34); MEAN CORPUSCULAR HGB CONC 30.5 g/dl (32-36); MONO % 9.6 %; MONO ABS # 1.16 K/uL (0.11-0.59); NEUT % 80.3 %; NEUT ABS # 9.69 K/uL (1.4-6.5); PLATELET COUNT 296 K/uL (130-400); RED CELL DISTRIBUTION WIDTH CV 17.4 % (11.5-14.5); WHITE BLOOD COUNT 12.06 K/uL (4.8-10.8)
[2017-05-17 18:21] LABS: ALBUMIN 3.4 gm/dl (3.4-5.0); ALT/SGPT 21 U/L (12-78); AST/SGOT 15 U/L (15-37); BLOOD UREA NITROGEN 24 mg/dl (7-18); CALCIUM 9.5 mg/dl (8.5-10.1); CARBON DIOXIDE 32 mmol/L (21-32); CREATININE 1.87 mg/dl (0.60-1.20); GLUCOSE 113 mg/dl (70-99); POTASSIUM 3.6 mmol/L (3.5-5.1); SODIUM 142 mmol/L (136-145)
[2017-05-17 18:24] LABS: ALKALINE PHOSPHATASE 90 U/L (45-117)
== END | disposition home or self-care (01) ==
LOC: C.LABMFLN 13:29
PROVIDERS: ATTEND Internal Medicine Cardiovascular Disease
DX: D64.9 Anemia, unspecified (principal); I42.9 Cardiomyopathy, unspecified; I50.32 Chronic diastolic (congestive) heart failure

== ENCOUNTER → 2017-05-27 | Outpatient (CLI) | payer OTHER, BC ==
--- NOTE | 2017-05-27 14:43 | DIAGNOSTIC IMAGING REPORT ---
CHEST 2 VIEWS ROUTINE CLINICAL HISTORY: Dyspnea. Lung nodules. COMPARISON STUDY: Chest CT April 23, 2017 and chest radiograph and chest ultrasound May 08, 2017 FINDINGS: Left apical interstitial thickening favors scarring. There is no pneumothorax. Pulmonary edema has resolved. Moderate left and small right pleural effusions have decreased in size since exam of May 08, 2017. Cardiomegaly is unchanged. IMPRESSION: 1. Moderate left and small right pleural effusions which are decreased in size when compared to exam of May 08, 2017. 2. Interval resolution of pulmonary edema. Electronically signed by: Diego Day M.D. 05/27/2017 2:41 PM Dictated Date/Time: 05/27/2017 2:38 PM
== END | disposition home or self-care (01) ==
LOC: C.RAD1850 13:49
PROVIDERS: ATTEND Internal Medicine Pulmonary Disease
DX: R06.00 Dyspnea, unspecified (principal); R91.8 Other nonspecific abnormal finding of lung field; J90 Pleural effusion, not elsewhere classified

== ENCOUNTER 2017-06-11 11:03 | Emergency (ER) | payer OTHER, BC ==
[~2017-06-11] VITALS: Ht 152.4 cm; Wt 87.3 kg
[2017-06-11 11:05] VITALS: TEMP 36.3
[2017-06-11 11:33] VITALS: O2SAT 93
[2017-06-11 11:34] VITALS: Ht 152.4 cm; Wt 87.3 kg
--- NOTE | 2017-06-11 11:54 | DIAGNOSTIC IMAGING REPORT ---
CHEST ONE VIEW PORTABLE CLINICAL HISTORY: Altered mental status COMPARISON STUDY: 05/27/2017 FINDINGS: The heart is enlarged. There are persistent bilateral pleural effusions left greater than right. There is associated left lower lobe atelectasis/consolidation. There is bilateral hilar fullness. There is superior left hilar retraction. There are left apical opacities, likely representing areas of scarring.[ IMPRESSION: 1. Persistent bilateral pleural effusions left greater than right with associated left lower lobe atelectasis/consolidation 2. Hilar prominence with persistent superior left hilar retraction 3. Left apical scarring Electronically signed by: Anibal Goins M.D. 06/11/2017 11:53 AM Dictated Date/Time: 06/11/2017 11:51 AM
[2017-06-11 11:56] LABS: BASO % 0.2 %; BASO ABS # 0.02 K/uL (0-0.2); EOS % 0.2 %; EOS ABS # 0.02 K/uL (0-0.5); HEMATOCRIT 35.8 % (37-47); HEMOGLOBIN 11.4 g/dL (12.0-16.0); IG# 0.02 K/uL (0.00-0.02); LYMPH % 8.7 %; LYMPH ABS # 0.91 K/uL (1.2-3.4); MEAN CELL VOLUME 88.6 fL (80-100); MEAN CORPUSCULAR HEMOGLOBIN 28.2 pg (25-34); MEAN CORPUSCULAR HGB CONC 31.8 g/dl (32-36); MEAN PLATELET VOLUME 9.7 fL (7.4-10.4); MONO % 7.2 %; MONO ABS # 0.75 K/uL (0.11-0.59); NEUT % 83.5 %; NEUT ABS # 8.69 K/uL (1.4-6.5); PLATELET COUNT 335 K/uL (130-400); RED CELL DISTRIBUTION WIDTH CV 17.5 % (11.5-14.5); RED CELL DISTRIBUTION WIDTH SD 56.4 fL (36.4-46.3); WHITE BLOOD COUNT 10.41 K/uL (4.8-10.8)
--- NOTE | 2017-06-11 12:06 | EMERGENCY ROOM VISIT NOTE ---
History Report prepared by Abdirahman: Sam Barone Under the Supervision of: Dr. Jamal Denis D.O. First contact with patient: 11:11 Chief Complaint: DEHYDRATION Stated Complaint: DEHYDRATED History of Present Illness The patient is a 76 year old female who presents to the Emergency Room with complaints of constant dehydration starting this morning. The patient states that this morning she woke up this morning around 0400, and she tried to take a trazodone to sleep, though it did not help her. The night before she also was unable to sleep, and her PCP thinks that it is due to her anxiety, and they started her on the trazodone yesterday. She additionally notes that she is currently being treated for a bladder infection the past two days, and she is currently being treated with Bactrim. She notes that she has not been urinating very much recently. She was seen at an ER two days ago, and she had a catheter placed, though she still did not have very much output. The patient has a history of A-fib and heart failure, and she has had 1200cc of fluid taken off of her left lung twice. She additionally has a history of lung cancer, and they did not find any cancer on a colonoscopy. The patient is denying any abdominal pain, back pain, new shortness of breath, and any new leg swelling. Source of History: patient Onset: this morning Position: other (generalized) Quality: other (dehydration) Timing: constant Associated Symptoms: No SOB, No abdominal pain, No back pain Review of Systems See HPI for pertinent positives & negatives. A total of 10 systems reviewed and were otherwise negative. Past Medical & Surgical Medical Problems: (1) Acute diastolic CHF (congestive heart failure) (2) Afib (3) Atrial Fibrillation (4) CML (chronic myelocytic leukemia) Family History Breast Cancer DAUGHTER, Lung Disease FATHER, Rheumatic Heart Disease MOTHER, Social History Smoking Status: Never Smoker Alcohol Use: none Drug Use: none Marital Status: Housing Status: lives with family Occupation Status: retired Current/Historical Medications Scheduled Acetaminophen (Tylenol), 1,000 MG PO AMHS Atorvastatin (Lipitor), 10 MG PO QPM Bumetanide (Bumex), 2 MG PO DAILY Cyanocobalamin (Vitamin B-12), 500 MCG SL DAILY Diltiazem Hcl Ext Rel (Tiazac), 360 MG PO QAM Edoxaban Tosylate (Savaysa), 30 MG PO DAILY Metoprolol Succinate (Toprolxl (Toprol-Xl), 200 MG PO DAILY Potassium Chloride (Micro-K Ext Rel), 20 MEQ PO DAILY Sulfa/Trimethoprim (Bactrim Ds 800MG/160MG), 1 TAB PO BID Allergies Coded Allergies: No Known Allergies (Unverified , 05/08/17) Physical Exam Vital Signs Date Time Temp Pulse Resp B/P (MAP) Pulse Ox O2 Delivery O2 Flow Rate FiO2 06/11/17 15:00 66 18 119/85 95 06/11/17 14:48 68 14 119/85 98 Room Air 06/11/17 14:24 82 121/70 97 Room Air 06/11/17 13:44 61 22 109/68 95 Room Air 06/11/17 12:36 76 27 115/68 94 Room Air 06/11/17 12:29 70 24 116/73 95 65 112/61 79 126/70 06/11/17 12:09 80 06/11/17 11:35 107 26 119/81 94 06/11/17 11:33 93 Room Air 06/11/17 11:33 93 Room Air 06/11/17 11:18 136 20 124/89 Room Air 06/11/17 11:14 136 119/92 06/11/17 11:05 36.3 117 17 78/64 97 Room Air Physical Exam GENERAL: Patient is awake, alert, and in no acute distress. Patient is resting comfortably and showing no signs of anxiety EYES: The conjunctivae are clear. The pupils are round and reactive. EARS, NOSE, MOUTH AND THROAT: The nose is without any evidence of any deformity. Mucous membranes are moist tongue is midline NECK: The neck is nontender and supple. RESPIRATORY: Normal respiratory effort is noted there is no evidence of wheezing rhonchi or rales CARDIOVASCULAR: Irregular to auscultation. No definite murmur. GASTROINTESTINAL: The abdomen is soft. Bowel sounds are present in all quadrants. Abdomen is nontender MUSCULOSKELETAL/EXTREMITIES: There is no evidence of gross deformity full range of motion is noted in the hips and shoulders SKIN: There is pedal edema bilaterally NEUROLOGIC: Patient is awake alert and oriented x3 Medical Decision & Procedures ER Provider Diagnostic Interpretation: Radiology results as stated below per my review and radiologist interpretation: CHEST ONE VIEW PORTABLE CLINICAL HISTORY: Altered mental status COMPARISON STUDY: 05/27/2017 FINDINGS: The heart is enlarged. There are persistent bilateral pleural effusions left greater than right. There is associated left lower lobe atelectasis/consolidation. There is bilateral hilar fullness. There is superior left hilar retraction. There are left apical opacities, likely representing areas of scarring.[ IMPRESSION: 1. Persistent bilateral pleural effusions left greater than right with associated left lower lobe atelectasis/consolidation 2. Hilar prominence with persistent superior left hilar retraction 3. Left apical scarring Electronically signed by: Anibal Goins M.D. 06/11/2017 11:53 AM Dictated Date/Time: 06/11/2017 11:51 AM Laboratory Results 06/11/17 11:45 Red Blood Count 4.04, Mean Corpuscular Volume 88.6, Mean Corpuscular Hemoglobin 28.2, Mean Corpuscular Hemoglobin Concent 31.8, Mean Platelet Volume 9.7, Neutrophils (%) (Auto) 83.5, Lymphocytes (%) (Auto) 8.7, Monocytes (%) (Auto) 7.2, Eosinophils (%) (Auto) 0.2, Basophils (%) (Auto) 0.2, Neutrophils # (Auto) 8.69, Lymphocytes # (Auto) 0.91, Monocytes # (Auto) 0.75, Eosinophils # (Auto) 0.02, Basophils # (Auto) 0.02 06/11/17 11:45 Test 06/11/17 11:45 06/11/17 12:30 White Blood Count 10.41 K/uL (4.8-10.8) Red Blood Count 4.04 M/uL (4.2-5.4) Hemoglobin 11.4 g/dL (12.0-16.0) Hematocrit 35.8 % (37-47) Mean Corpuscular Volume 88.6 fL (80-100) Mean Corpuscular Hemoglobin 28.2 pg (25-34) Mean Corpuscular Hemoglobin Concent 31.8 g/dl (32-36) Platelet Count 335 K/uL (130-400) Mean Platelet Volume 9.7 fL (7.4-10.4) Neutrophils (%) (Auto) 83.5 % Lymphocytes (%) (Auto) 8.7 % Monocytes (%) (Auto) 7.2 % Eosinophils (%) (Auto) 0.2 % Basophils (%) (Auto) 0.2 % Neutrophils # (Auto) 8.69 K/uL (1.4-6.5) Lymphocytes # (Auto) 0.91 K/uL (1.2-3.4) Monocytes # (Auto) 0.75 K/uL (0.11-0.59) Eosinophils # (Auto) 0.02 K/uL (0-0.5) Basophils # (Auto) 0.02 K/uL (0-0.2) RDW Standard Deviation 56.4 fL (36.4-46.3) RDW Coefficient of Variation 17.5 % (11.5-14.5) Immature Granulocyte % (Auto) 0.2 % Immature Granulocyte # (Auto) 0.02 K/uL (0.00-0.02) Prothrombin Time 12.1 SECONDS (9.0-12.0) Prothromb Time International Ratio 1.2 (0.9-1.1) Activated Partial Thromboplast Time 31.7 SECONDS (21.0-31.0) Partial Thromboplastin Ratio 1.2 Anion Gap 4.0 mmol/L (3-11) Est Creatinine Clear Calc Drug Dose 27.7 ml/min Estimated GFR () 33.9 Estimated GFR (Non- 29.2 BUN/Creatinine Ratio 15.5 (10-20) Calcium Level 9.6 mg/dl (8.5-10.1) Magnesium Level 2.2 mg/dl (1.8-2.4) Total Bilirubin 0.7 mg/dl (0.2-1) Direct Bilirubin 0.2 mg/dl (0-0.2) Aspartate Amino Transf (AST/SGOT) 14 U/L (15-37) Alanine Aminotransferase (ALT/SGPT) 19 U/L (12-78) Alkaline Phosphatase 98 U/L (45-117) Troponin I < 0.015 ng/ml (0-0.045) Pro-B-Type Natriuretic Peptide 5227 pg/ml (0-1800) Total Protein 7.4 gm/dl (6.4-8.2) Albumin 3.8 gm/dl (3.4-5.0) Thyroid Stimulating Hormone (TSH) 2.930 uIu/ml (0.300-4.500) Urine Color YELLOW Urine Appearance CLEAR (CLEAR) Urine pH 5.0 (4.5-7.5) Urine Specific [place] 1.013 (1.000-1.030) Urine Protein NEG (NEG) Urine Glucose (UA) NEG (NEG) Urine Ketones NEG (NEG) Urine Occult Blood NEG (NEG) Urine Nitrite NEG (NEG) Urine Bilirubin NEG (NEG) Urine Urobilinogen NEG (NEG) Urine Leukocyte Esterase TRACE (NEG) Urine WBC (Auto) 5-10 /hpf (0-5) Urine RBC (Auto) 0-4 /hpf (0-4) Urine Hyaline Casts (Auto) 5-10 /lpf (0-5) Urine Epithelial Cells (Auto) 10-20 /lpf (0-5) Urine Bacteria (Auto) NEG (NEG) Laboratory results per my review. Medications Administered Medications (Trade) Dose Ordered Sig/[place] Route Start Time Stop Time Status Last Admin Dose Admin Sodium Chloride 500 ml @ 999 mls/hr Q31M STAT IV 06/11/17 13:36 06/11/17 14:06 DC 06/11/17 13:43 999 MLS/HR ECG Per My Interpretation Indication: other (dizziness) Rate (beats per minute): 118 Rhythm: atrial fibrillation Findings: LBBB Comparison ECG Date: 05/08/17 Change: no significant change ED Course 1111: The patient was evaluated in room C11. A complete history and physical examination were performed. 1322: I reevaluated the patient, and she is resting comfortably. 1336: NSS 500 ml @ 999 mls/hr IV 1453: Upon reevaluation, the patient is doing well. I discussed the results and treatment plan with her. She verbalized agreement of the treatment plan. She was discharged home. Medical Decision Differential diagnosis: Etiologies such as metabolic, infection, hypo/hyperglycemia, electrolyte abnormalities, cardiac sources, intracerebral event, toxicologic, neurologic, as well as others were entertained. Nursing notes reviewed. Additional history is obtained from the patient's family members. The patient is a 76-year-old female who presented to the [facility] department because of difficulty sleeping last night. Initially the patient was found to have low blood pressure but this was not found on subsequent blood pressure measurements. She did not have orthostatic hypotension. She was treated with IV fluids in the emergency department. I discussed the patient's laboratory and radiographic studies with her. This does not appear to be consistent with an infectious source. The patient was recently started on trazodone. I am unsure if this was a cause of her symptoms from last evening. I encouraged her to rest and avoid any strenuous activity. I did recommend that she stop taking the trazodone but continue all other medications as prescribed. Otherwise I encouraged her to return to the emergency department immediately if symptoms change worsen or the need arises. I did recommend that she follow-up with her family doctor soon as possible as well. Medication Reconcilliation Current Medication List: was personally reviewed by me Blood Pressure Screening Patient's blood pressure: Normal blood pressure Impression Primary Impression: Dizziness Additional Impression: Medication reaction Scribe Attestation The scribe's documentation has been prepared under my direction and personally reviewed by me in its entirety. I confirm that the note above accurately reflects all work, treatment, procedures, and medical decision making performed by me. Departure Information Dispostion Home / Self-Care Referrals Lopez Dahl M.D. (PCP) Forms HOME CARE DOCUMENTATION FORM, IMPORTANT VISIT INFORMATION, WORK / SCHOOL INSTRUCTIONS Patient Instructions ED Dizziness [facility], My [facility] Additional Instructions Stop taking the trazodone. Continue all other medications as prescribed. Follow-up with your family doctor for reevaluation. Return to the emergency department immediately if symptoms change worsen or the need arises. Problem Qualifiers Additional Impression: Medication reaction Encounter type: initial encounter Qualified Codes: T88.7XXA - Unspecified adverse effect of drug or medicament, initial encounter
[2017-06-11] MEDS ORDERED: POTA10CA28 PO (12:10)
[2017-06-11] MEDS ORDERED: METO200T32 PO (12:10)
[2017-06-11] MEDS ORDERED: BUME2TAB3 PO (12:10)
[2017-06-11] MEDS ORDERED: EDOX1TAB2 PO (12:10)
[2017-06-11] MEDS ORDERED: SULF800T23 PO (12:10)
[2017-06-11 12:16] LABS: ALBUMIN 3.8 gm/dl (3.4-5.0); ALT/SGPT 19 U/L (12-78); AST/SGOT 14 U/L (15-37); BLOOD UREA NITROGEN 26 mg/dl (7-18); CALCIUM 9.6 mg/dl (8.5-10.1); CARBON DIOXIDE 29 mmol/L (21-32); CREATININE 1.67 mg/dl (0.60-1.20); GLUCOSE 96 mg/dl (70-99); INR 1.2 (0.9-1.1); POTASSIUM 3.9 mmol/L (3.5-5.1); PTT PATIENT 31.7 SECONDS (21.0-31.0); SODIUM 137 mmol/L (136-145)
[2017-06-11 12:26] LABS: ALKALINE PHOSPHATASE 98 U/L (45-117); TOTAL PROTEIN 7.4 gm/dl (6.4-8.2)
[2017-06-11] MEDS ORDERED: SODIUM CHLORIDE 0.9% 500ML 500 ML IV STA (13:36)
[2017-06-11 15:00] VITALS: BP 119/85; PULSE 66; O2SAT 95
== END 2017-06-11 15:18 | disposition home or self-care (01) ==
LOC: C.EDB 11:04 → C.EDC 15:18
DX: R42 Dizziness and giddiness (principal); T43.215A Adverse effect of selective serotonin and norepinephrine reuptake inhibitors, initial encounter; I48.91 Unspecified atrial fibrillation; I50.9 Heart failure, unspecified; Z85.118 Personal history of other malignant neoplasm of bronchus and lung; Z85.6 Personal history of leukemia; Z80.3 Family history of malignant neoplasm of breast; Z82.49 Family history of ischemic heart disease and other diseases of the circulatory system; Z79.899 Other long term (current) drug therapy

== ENCOUNTER → 2017-06-24 | Outpatient (CLI) | payer OTHER, BC ==
[~2017-06-24] MED LIST changes: -POLYSOL4 OP; +SULF800T23 PO
[2017-06-24 17:49] LABS: BASO % 0.2 %; BASO ABS # 0.02 K/uL (0-0.2); EOS % 0.3 %; EOS ABS # 0.03 K/uL (0-0.5); HEMATOCRIT 37.7 % (37-47); HEMOGLOBIN 11.6 g/dL (12.0-16.0); IG# 0.03 K/uL (0.00-0.02); LYMPH % 11.2 %; LYMPH ABS # 1.01 K/uL (1.2-3.4); MEAN CORPUSCULAR HEMOGLOBIN 28.3 pg (25-34); MEAN CORPUSCULAR HGB CONC 30.8 g/dl (32-36); MEAN PLATELET VOLUME 10.3 fL (7.4-10.4); MONO % 9.8 %; MONO ABS # 0.88 K/uL (0.11-0.59); NEUT % 78.2 %; NEUT ABS # 7.05 K/uL (1.4-6.5); PLATELET COUNT 286 K/uL (130-400); RED CELL DISTRIBUTION WIDTH CV 17.6 % (11.5-14.5); RED CELL DISTRIBUTION WIDTH SD 59.3 fL (36.4-46.3); WHITE BLOOD COUNT 9.02 K/uL (4.8-10.8)
[2017-06-24 18:35] LABS: ALBUMIN 3.6 gm/dl (3.4-5.0); ALT/SGPT 18 U/L (12-78); AST/SGOT 16 U/L (15-37); BLOOD UREA NITROGEN 28 mg/dl (7-18); CALCIUM 9.5 mg/dl (8.5-10.1); CARBON DIOXIDE 29 mmol/L (21-32); CREATININE 1.31 mg/dl (0.60-1.20); GLUCOSE 128 mg/dl (70-99); POTASSIUM 3.9 mmol/L (3.5-5.1); SODIUM 136 mmol/L (136-145)
[2017-06-24 18:40] LABS: ALKALINE PHOSPHATASE 91 U/L (45-117)
== END | disposition home or self-care (01) ==
LOC: C.LABMFLN 11:29
PROVIDERS: ATTEND Family Medicine
DX: I31.3 Pericardial effusion (noninflammatory) (principal); J90 Pleural effusion, not elsewhere classified; R60.0 Localized edema

== ENCOUNTER → 2017-06-25 | Outpatient (CLI) | payer OTHER, BC ==
[~2017-06-25] MED LIST changes: +OPTIRAY 320 IV PRN; +ULT/50 PO
--- NOTE | 2017-06-25 10:45 | DIAGNOSTIC IMAGING REPORT ---
TWO VIEW CHEST CLINICAL HISTORY: Dyspnea. FINDINGS: PA and lateral chest radiographs are compared to study dated 06/11/2017 and correlated with chest CT dated 04/24/2017. The heart is enlarged and there is atherosclerotic calcification of the thoracic aorta. The pulmonary vasculature is noncongested. There are bilateral pleural effusions, left larger than right with associated atelectasis. No airspace consolidation is seen typical for pneumonia. Chronic interstitial thickening is similar to previous, as is left apical scarring. There is no pneumothorax. The skeletal structures are osteopenic. The bony thorax appears intact. Degenerative change is noted throughout the thoracic spine. IMPRESSION: 1. Cardiomegaly without radiographic evidence of congestive failure. 2. Left larger than right pleural effusions with associated atelectasis. Electronically signed by: Lopez Whitfield M.D. 06/25/2017 10:44 AM Dictated Date/Time: 06/25/2017 10:43 AM
== END | disposition home or self-care (01) ==
LOC: C.RAD1850 10:28
PROVIDERS: ATTEND Family Medicine
DX: R06.00 Dyspnea, unspecified (principal)

== ENCOUNTER 2017-06-29 13:56 | Day surgery (SDC) | payer OTHER, BC ==
[~2017-06-29] VITALS: Ht 152.4 cm; Wt 84.5 kg
[~2017-06-29 13:56] MED LIST changes: -OPTIRAY 320 IV PRN; -ULT/50 PO
[2017-06-29 14:27] VITALS: BP 129/68; PULSE 70; TEMP 36.4; O2SAT 95; Ht 152.4 cm; Wt 84.5 kg
[2017-06-29] MEDS ORDERED: LIDOCAINE HCL 1% 20 ML VIAL ONE (14:31)
--- NOTE | 2017-06-29 14:35 | Discharge Instructions ---
Discharge Instructions Date of Service June 29, 2017. Visit Reason for Visit: Pleural Effusion Discharge Discharge Diagnosis / Problem: Pleural Effusion Discharge Goals Goal(s): Decrease discomfort, Improve function, Learn about illness Activity Recommendations Activity Limitations: as noted below Lifting Limitations: none Shower/Bathe: keep incision dry 1. Keep incision dry and do not shower until cleared to do so by Dr. Delgado. 2. Do not fly until cleared to do so by Nayely Delgado. 3. Do not drive until cleared to do so by Dr. Delgado. Anesthesia . Post Anesthesia Instructions: If you have had General Anesthesia or IV Sedation: * Do not drive today. * Resume driving when surgeon permits. * Do not make important decisions or sign legal documents today. * Call surgeon for: 1. Temperature elevations greater than 101 degrees F. 2. Uncontrollable pain. 3. Excessive bleeding. 4. Persistent nausea and vomiting. 5. Medication intolerance (nausea, vomiting or rash). * For nausea and vomiting use only clear liquids such as: tea, soda, bouillon until nausea subsides, then gradually increase diet as tolerated. * If you have any concerns or questions, call your surgeon's office. If physician is unavailable and it is an emergency, call 911 or go to the nearest emergency room. . Instructions / Follow-Up Instructions / Follow-Up 1. Visiting nurses will drain your Pleurx daily. Record the amounts and call Dr. Delgado's office every with amounts drained each day. 2. Keep your scheduled appointment with Dr. Delgado on July 15, 2017 @ 10:30 am. Go to the hospital 1 hour before appointment to have a chest x-ray taken. Diet Recommendations Recommended Home Diet: resume previous diet Pending Studies Studies pending at discharge: no Medical Emergencies . Who to Call and When: Medical Emergencies: If at any time you feel your situation is an emergency, please call 911 immediately. . Non-Emergent Contact Non-Emergency issues call your: Surgeon Call Non-Emergent contact if: you have a fever, your pain is not controlled, wound has increased drainage . . "Provider Documentation" section prepared by Darius Huber. .
[2017-06-29] MEDS ORDERED: ULT/50 PO (14:36)
[2017-06-29] MEDS ORDERED: NURSING VERBAL MED ORDER ONE (15:00)
[2017-06-29 15:22] VITALS: BP 116/58; PULSE 65; TEMP 37.1; O2SAT 94
--- NOTE | 2017-06-29 15:25 | [facility] Post Operative Brief Note ---
Immediate Operative Summary Operative Date June 29, 2017. Pre-Operative Diagnosis left pleural effusion Post-Operative Diagnosis same Procedure(s) Performed Insertion of left pleurx catheter under ultrasound guidance Surgeon Sandy Potable Water Treatment Operator Surgeon(s) Cecile Estimated Blood Loss 0 Findings Consistent with Post-Op Diagnosis Specimens 700 cc's left pleural fluid Drains pleurx catheter Anesthesia Type Local Complication(s) none
[2017-06-29] MEDS ORDERED: TRAMADOL HCL 50 MG TAB PO STA (15:27)
[2017-06-29] MEDS ORDERED: TRAMADOL HCL 50 MG TAB ONE (15:29)
--- NOTE | 2017-06-29 15:38 | DIAGNOSTIC IMAGING REPORT ---
CHEST ONE VIEW PORTABLE HISTORY: 76 years-old Female effusion follow-up study in a patient with pleural effusion COMPARISON: Chest radiograph 06/25/2017 TECHNIQUE: Portable AP view of the chest FINDINGS: Status post placement of a left-sided chest tube with distal tip terminating adjacent to the left lung apex. There is mild kinking of the chest tube at the level of the lateral left lung base. Small left apical pneumothorax is seen, pleural separation 6 mm. There is decreased size of the left pleural effusion which is now small. Small right pleural effusion also noted. Cardiomegaly with atherosclerosis of the aorta. Mild pulmonary vascular congestion without overt pulmonary edema. Degenerative changes of the shoulders and spine. IMPRESSION: 1. Status post placement of a left-sided chest tube with mild kinking at the level of the lateral left lung base. 2. Small left apical pneumothorax. 3. Decreased size of left pleural effusion with small bilateral pleural effusions seen bilaterally. The above report was generated using voice recognition software. It may contain grammatical, syntax or spelling errors. Electronically signed by: Eduardo Harley M.D. 06/29/2017 3:37 PM Dictated Date/Time: 06/29/2017 3:34 PM
[2017-06-29 15:50] VITALS: BP 141/67; PULSE 74; TEMP 36.6; O2SAT 97
[2017-06-29 16:06] LABS: PLEURAL FLUID TOTAL PROTEIN 3.2 g/dl
--- NOTE | 2017-06-29 19:52 | OPERATIVE REPORT ---
DATE OF OPERATION: 06/29/2017 PREOPERATIVE DIAGNOSIS: Recurrent left pleural effusion. POSTOPERATIVE DIAGNOSIS: Recurrent left pleural effusion. PROCEDURE: Insertion of left PleurX catheter. SURGEON: Ar Delgado MD PM HEAD COOK: THADDEUS Saba. ANESTHESIA: Local. SPECIFICS OF PROCEDURE: Ms. Samuels is a very nice 76-year-old who has some diastolic dysfunction also has a history of chronic myelomonocytic leukemia who has a persistent left pleural effusion which she is markedly symptomatic from. She has started sleeping in a chair because she cannot lie flat. For this reason, after seeing her in the office today and discussed this with Mr. Carlos A Hall last week, I elected to place a PleurX catheter. The patient has been tapped twice with rapid reaccumulation of the fluid. DESCRIPTION OF PROCEDURE: On 06/29/2017 brought patient to the medical treatment unit. Under ultrasound guidance, a spot was selected on her lateral left chest. She was prepped and draped in usual sterile fashion. After appropriate timeout had been called, a 25 gauge needle 1% Xylocaine was used to create 2 skin wheals. They were about 10 cm apart. I then used a large bore needle to anesthetize the subcutaneous tissues, muscle and pleura and we got free flowing fluid. A soft J-tipped guidewire was inserted through the needle, needle removed. The insertion site was enlarged to about 1 cm. The insertion site at the other skin wheal was also enlarged to about a centimeter. A long needle was used to anesthetize subcutaneous tissues between the 2 incisions and a tunneler was attached to PleurX catheter and dragged from the anterior to posterior incision. The tunnel was removed. Introducer sheath with inner cannula was slid over the guidewire posteriorly. Inner cannula and guidewire removed and the PleurX catheter was placed through the peel away sheath and then removed. This was sutured in place with silk suture. 700 mL of a yellowish fluid was drained, pH of this was 7.5. The rest was sent for laboratory analysis. She tolerated it well and she had some reexpansion pain at the conclusion. We set her up to be drained daily. I will see her back in the office in the next 1-2 weeks. Chest x-ray is pending. I attest to the content of the Intraoperative Record and any orders documented therein. Any exception s are noted below.
== END 2017-06-29 15:55 | disposition home or self-care (01) ==
LOC: C.ACU 13:56
PROVIDERS: ATTEND Surgery
DX: J90 Pleural effusion, not elsewhere classified (principal); J95.811 Postprocedural pneumothorax

== ENCOUNTER → 2017-09-14 | Outpatient (CLI) | payer OTHER, BC ==
[~2017-09-14] MED LIST changes: -SULF800T23 PO; +ULT/50 PO
--- NOTE | 2017-09-14 11:25 | DIAGNOSTIC IMAGING REPORT ---
CHEST 2 VIEWS ROUTINE HISTORY: D51.0 Pernicious anemia COMPARISON: Chest 08/17/2017. FINDINGS: Left-sided chest tube remains unchanged in position. No pneumothorax. Mild emphysema. Mild interstitial thickening which is likely chronic. Trace left pleural effusion has almost completely resolved. The heart remains mildly enlarged. No new focal lung consolidations. Stable irregular 2.1 cm peripheral opacity within the left lung apex. IMPRESSION: 1. Near complete resolution of the trace left pleural effusion. A left chest tube remains unchanged in position. 2. No pneumothorax. 3. No change in the 2.1 cm left apical subpleural opacity. Electronically signed by: Rigoberto Clinton M.D. 09/14/2017 11:23 AM Dictated Date/Time: 09/14/2017 11:21 AM
== END | disposition home or self-care (01) ==
LOC: C.RAD1850 10:17
PROVIDERS: ATTEND Surgery
DX: D51.0 Vitamin B12 deficiency anemia due to intrinsic factor deficiency (principal)

== ENCOUNTER → 2017-09-21 | Outpatient (CLI) | payer OTHER, BC ==
[2017-09-21 13:46] LABS: BLOOD UREA NITROGEN 24 mg/dl (7-18); CALCIUM 9.3 mg/dl (8.5-10.1); CARBON DIOXIDE 31 mmol/L (21-32); CREATININE 1.05 mg/dl (0.60-1.20); GLUCOSE 88 mg/dl (70-99); POTASSIUM 4.3 mmol/L (3.5-5.1); SODIUM 139 mmol/L (136-145)
== END | disposition home or self-care (01) ==
LOC: C.LABMFLN 11:08
PROVIDERS: ATTEND Physician Assistant
DX: I42.9 Cardiomyopathy, unspecified (principal)

== ENCOUNTER → 2017-09-30 | Outpatient (CLI) | payer OTHER, BC ==
--- NOTE | 2017-09-30 12:32 | DIAGNOSTIC IMAGING REPORT ---
CHEST 2 VIEWS ROUTINE HISTORY: PLEURAL EFFUSION COMPARISON: Chest 09/14/2017. FINDINGS: The left-sided chest tube has been removed. No pneumothorax. Stable blunting of the left lateral costophrenic sulcus. This may represent scarring or trace pleural fluid.. The right lung is clear. The heart remains mildly enlarged. No change in the 2.1 cm left apical subpleural irregular opacity. IMPRESSION: 1. Interval removal of the left-sided chest tube. No pneumothorax. 2. Stable blunting of the left lateral costophrenic sulcus. This may represent scarring or trace pleural fluid.. 3. No change in the 2.1 cm left apical subpleural regular opacity. Electronically signed by: Rigoberto Clinton M.D. 09/30/2017 12:31 PM Dictated Date/Time: 09/30/2017 12:28 PM
== END | disposition home or self-care (01) ==
LOC: C.RAD1850 12:13
PROVIDERS: ATTEND Physician Assistant
DX: J90 Pleural effusion, not elsewhere classified (principal)